=== PATIENT | male | born 1925 | race Caucasian/White ===

== ENCOUNTER 2016-04-05 19:18 | Inpatient (IN) | payer MEDICARE ==
[~2016-04-05] VITALS: Ht 172.7 cm; Wt 60.1 kg
[~2016-04-05 19:18] MED LIST: ASPI81TA82 PO; LACT20SO4 PO; LISI-357 PO; OMEP20TA PO; SIMV40TA PO
[2016-04-05 19:21] VITALS: BP 155/81; PULSE 144; RESP 38; TEMP 102.9
[2016-04-05] MEDS ORDERED: SODIUM CHLOR 0.9% 1000 ML INJ 1,000 ML IV ONE (19:22)
[2016-04-05] MEDS ORDERED: NITROGLYCERIN 0.4 MG SL 25 TABS/BTL SL STA (19:22)
[2016-04-05] MEDS ORDERED: ASPIRIN 81 MG CHEW TAB PO STA (19:22)
[2016-04-05 19:25] VITALS: O2SAT 96
[2016-04-05] MEDS ORDERED: CEFEPIME INJ 2,000 MG in SODIUM CHLORIDE 0.9% INJ 100 ML IV STA (19:26)
[2016-04-05] MEDS ORDERED: AZITHROMYCIN INJ 500 MG in SODIUM CHLOR 0.9% 250 ML INJ 250 ML IV STA (19:26)
[2016-04-05] MEDS ORDERED: SODIUM CHLORIDE 0.9% FLUSH 5 ML FLUSH IVF PRN (19:30)
[2016-04-05] MEDS ORDERED: NITROGLYCERIN-DEXTROSE INJ 250 ML IV SCH (19:30)
[2016-04-05 19:38] VITALS: RESP 20; O2SAT 100
[2016-04-05] MEDS ORDERED: HEPARIN-D5W INJ 250 ML IV SCH (19:45)
[2016-04-05] MEDS ORDERED: ACETAMINOPHEN 650 MG SUPP RECTAL ONE (19:45)
[2016-04-05] MEDS ORDERED: ASPI81CH3 CHEW (19:48)
[2016-04-05] MEDS ORDERED: SIMV80TA PO (19:48)
[2016-04-05] MEDS ORDERED: LACT10SO47 PO (19:48)
[2016-04-05 19:50] LABS: AUTOMATED NEUTROPHIL # 7.1 TH/MM3 (1.8-7.7); BASOPHIL % 0.3 % (0.0-2.0); EOSINOPHIL % 0.1 % (0.0-4.0); HEMATOCRIT 34.6 % (39.0-51.0); HEMO FLAGS DIFF FINAL; LYMPHOCYTE # 0.2 TH/MM3 (1.0-4.8); MEAN CELL VOLUME 93.8 FL (80.0-100.0); MEAN CORPUSCULAR HEMOGLOBIN 31.7 PG (27.0-34.0); MEAN CORPUSCULAR HGB CONC 33.8 % (32.0-36.0); MONO % 5.7 % (0.0-8.0); NEUT % 91.9 % (16.0-70.0); PLATELET COUNT 235 TH/MM3 (150-450); RED BLOOD COUNT 3.69 MIL/MM3 (4.50-5.90); WHITE BLOOD COUNT 7.7 TH/MM3 (4.0-11.0)
[2016-04-05] MEDS ORDERED: OMEP20TA PO (19:51)
[2016-04-05] MEDS ORDERED: LISI-519 PO (19:51)
[2016-04-05 19:52] VITALS: BP 156/70; PULSE 128; RESP 37; O2SAT 98
--- NOTE | 2016-04-05 19:53 | RADRPT ---
EXAM DATE/TIME: 04/05/2016 19:31 [place] COMPARISON: No previous studies available for comparison. INDICATIONS : Chest pain, STEMI alert. MEDICAL HISTORY : Chronic obstructive pulmonary disease. SURGICAL HISTORY : None. ENCOUNTER: Initial ACUITY: 1 day PAIN SCORE: 10/10 LOCATION: Bilateral chest FINDINGS: Moderate peribronchial thickening is present in both lung bases. The heart and pulmonary vascularity are normal. Portion of the bony skeleton visualized is unremarkable. CONCLUSION: PERIBRONCHIAL THICKENING IN BOTH LUNG BASES. OLD FILMS ARE CURRENTLY UNAVAILABLE FOR COMPARISON. IF THESE BECOME AVAILABLE AND ADDENDUM CAN BE DICTATED. Khris Clemens MD FACR on April 05, 2016 at 19:48 Board Certified Radiologist. This report was verified electronically.
--- NOTE | 2016-04-05 19:53 | PD ---
HPI Chief Complaint: STEMI Alert Time Seen by Provider: 19:21 Travel History International Travel<30 days: No Contact w/Intl Traveler<30days: No Traveled to known affect area: No History of Present Illness HPI 89-year-old male with history of diabetes, high cholesterol, pericarditis in the past, presents to the ER brought in by EMS because family had called EMS due to respiratory distress at home. When they arrived, they found that he had a temperature of 103 and an EKG shows what appears to be ST elevations in multiple leads. He has no complaints on initial exam by EMS. Family on scene were Turkmen-speaking and they were not able to get much more history or medications. I was able to talk briefly to patient's daughter who told me of patient's previous medical history. STEMI alert was called. Modifying Factors: None Associated Signs & Symptoms: STEMI alert Risk Factors: Diabetes, high cholesterol PFSH Past Medical History Cardiovascular Problems: Yes High Cholesterol: Yes Diabetes: Yes GERD: Yes ?: Unknown Past Surgical History Other Surgery: Yes (LAMINECTOMY L4-L5) Social History Alcohol Use: No Tobacco Use: No Substance Use: No Allergies-Medications (Allergen,Severity, Reaction): Coded Allergies: Amoxicillin (Verified Allergy, Severe, Rash, 04/05/16) Flagyl (Verified Allergy, Severe, RASH, 04/05/16) Penicillin (Verified Allergy, Severe, RASH, 04/05/16) Reported Meds & Prescriptions Reported Meds & Active Scripts Active Lactulose 30 Ml Syrp 30 Ml PO TID PRN Reported Omeprazole 20 mg (Omeprazole) 20 Mg Tab 20 Mg PO DAILY Aspir-81 (Aspirin) 81 Mg Tab 81 Mg PO DAILY Simvastatin 40 Mg Tab 60 Mg PO HS Lisinopril 5 mg (Lisinopril) 5 Mg Tab 5 Mg PO HS Review of Systems Except as stated in HPI: all other systems reviewed are Neg Physical Exam Narrative GENERAL: Well-nourished, well-developed elderly white male patient in mild distress. Awake, alert, not oriented. SKIN: Warm and dry. HEAD: Normocephalic. EYES: No scleral icterus. No injection or drainage. NECK: Supple, trachea midline. CARDIOVASCULAR: Regular rate and rhythm without murmurs, gallops, or rubs. RESPIRATORY: Breath sounds equal bilaterally. No accessory muscle use. GASTROINTESTINAL: Abdomen soft, non-tender, nondistended. MUSCULOSKELETAL: No cyanosis, or edema. BACK: Nontender without obvious deformity. No CVA tenderness. Data Data Last Documented VS Vital Signs Date Time Temp Pulse Resp B/P Pulse Ox O2 Delivery O2 Flow Rate FiO2 04/05/16 19:38 20 100 Non-Rebreather 12 04/05/16 19:25 100 04/05/16 19:21 102.9 144 155/81 Orders Troponin I (04/05/16 19:22) Ckmb (Isoenzyme) Profile (04/05/16 19:22) Complete Blood Count With Diff (04/05/16:) I-Stat Profile (04/05/16:) I-Stat Creatinine (04/05/16:) Calcium (04/05/16:) Magnesium (Mg) (04/05/16:) Prothrombin Time / Inr (Pt) (04/05/16:22) Act Partial Throm Time (Ptt) (04/05/16:) B-Type Natriuretic Peptide (04/05/16:22) Chest, Single Ap (04/05/16 19:22) Electrocardiogram (04/05/16 19:22) Oxygen Administration (04/05/16:) Iv Access Insert/Monitor (04/05/16:) Oximetry (04/05/16:22) Sodium Chlor 0.9% 1000 Ml Inj (Ns 1000 M (04/05/16 19:22) Sodium Chloride 0.9% Flush (Ns Flush) (04/05/16 19:30) Aspirin Chew (Aspirin Chew) (04/05/16 19:22) Nitroglycerin Sl (Nitrostat Sl) (04/05/16 19:22) Nitroglycerin-Dextrose Inj (Nitroglyceri (04/05/16 19:30) Lactic Acid Sepsis Protocol (04/05/16 19:22) Urinalysis - C+S If Indicated (04/05/16 19:22) Blood Culture (04/05/16 19:22) Cefepime Inj (Maxipime Inj) (04/05/16 19:26) Azithromycin Inj (Zithromax Inj) (04/05/16 19:26) Acetaminophen Supp (Tylenol Supp) (04/05/16 19:45) Heparin Infusion TUCKER.Q1H (04/05/16 19:40) Heparin Inj (Heparin Inj) (04/06/16 01:45) Heparin Inj (Heparin Inj) (04/06/16 01:45) Heparin-D5w Inj (Heparin-D5w Inj) (04/05/16 19:45) Act Partial Throm Time (Ptt) (04/05/16 19:40) Cbc No Diff, Includes Plts (04/05/16 19:40) Cbc No Diff, Includes Plts (04/08/16 06:00) Act Partial Throm Time (Ptt) (04/06/16 02:40) Occult Blood (Hemoccult) Stool (04/05/16 19:40) Admit Order (Ed Use Only) (04/05/16 19:40) MDM Medical Decision Making Medical Screen Exam Complete: Yes Emergency Medical Condition: Yes Medical Record Reviewed: Yes Interpretation(s) EKG shows ST elevations in inferior leads and anterolateral leads. I do not see any obvious reciprocal changes. Differential Diagnosis STEMI versus pericarditis versus pneumonia versus endocarditis versus sepsis versus electrolyte abnormalities Narrative Course STEMI protocol was initiated, and sepsis protocol was initiated as well due to the elevated temperature and concern of underlying sepsis. IV antibiotics were initiated after blood cultures were drawn. Aspirin and [place] and was given in the ER. Case was discussed with Dr. Ferrari and the EKG was text into Dr. Ferrari who took a look and called back stating that he would like me to continue with the STEMI alert protocol. At this point, patient is being admitted to Dr. Ferrari service, lab for catheterization. I have notified patient's daughter, who is a hospitalist, regarding case as well. She states understanding. Aggregate critical care time was 25 minutes. Time to perform other separately billable procedures was not included in the critical care time. My time did not include minutes spent treating any other patients simultaneously or on activities that did not directly contribute to the patient's treatment. The services I provided to this patient were to treat and/or prevent clinically significant deterioration that could result in: Cardiopulmonary arrest, septic shock, dysrhythmias, I provided critical care services requiring my management, as noted below: Chart data review, documentation time, medication orders and management, vital sign assessments/reviewing monitor data, ordering and reviewing lab tests, ordering and interpreting/reviewing x-rays and diagnostic studies, care of the patient and discussion of the patient with the admitting physicians. Diagnosis Primary Impression: STEMI INVOLVING OTH SITES Additional Impression: SEPSIS, UNSPECIFIED ORGANISM Admitting Information Admitting Physician Requests: Admit Fredi Rincon MD Apr 05, 2016 19:53
[2016-04-05 20:04] LABS: APTT (PATIENT) 29.7 SEC (24.3-30.1); INTERNATIONAL NORMALIZED RATIO 1.2 RATIO; PROTHROMBIN TIME - PATIENT 13.1 SEC (9.8-11.6)
[2016-04-05 20:24] LABS: BACTERIA, URINE OCC /hpf; BLOOD, URINE SMALL (NEG); COMMENT (UR) CATH-CULT NOT IND; CULTURE IF INDICATED CATH CULTURE NOT IND; GLUCOSE,URINE 1000 mg/dL (NEG); KETONE, URINE 10 mg/dL (NEG); MUCUS URINE FEW /lpf (OCC); NITRITE,URINE NEG (NEG); PH, URINE 5.5 (5.0-8.5); URINE COLOR YELLOW (YELLW/STRAW)
[2016-04-05 20:35] LABS: MAGNESIUM 2.1 MG/DL (1.5-2.5)
[2016-04-05] MEDS ORDERED: RESP: ALBUTEROL 2.5 MG/3 ML NEB (PRN) ONE (21:45)
[2016-04-05] MEDS ORDERED: TIROFIBAN INFUSION INJ 250 ML IV SCH (21:56)
[2016-04-05] MEDS ORDERED: SODIUM CHLOR 0.9% 250 ML INJ 250 ML IV PRN (22:00)
[2016-04-05] MEDS ORDERED: TEMAZEPAM 15 MG CAP PO PRN (22:00)
[2016-04-05] MEDS ORDERED: ONDANSETRON HCL 4 MG/2 ML VIAL IV PRN (22:00)
[2016-04-05] MEDS ORDERED: LORazepam 2 MG/ML VIAL IV PRN (22:00)
[2016-04-05] MEDS ORDERED: LIDOCAINE HCL 1% 50 ML VIAL INFIL PRN (22:00)
[2016-04-05] MEDS ORDERED: ATROPINE SULFATE 1 MG/ML VIAL IV PRN (22:00)
[2016-04-05] MEDS ORDERED: MISC INFORMATION XX ONE (22:00)
[2016-04-05] MEDS ORDERED: MORPHINE SULFATE 4 MG/ML INJ IV PUSH PRN (22:00)
[2016-04-05] MEDS ORDERED: ACETAMINOPHEN 325 MG TAB PO PRN (22:00)
[2016-04-05 22:02] LABS: LACTIC ACID GHOST NOT REPORTABLE
[2016-04-05] MEDS ORDERED: INSULIN HUMAN REGULAR 1,000 UNITS/10 ML VIAL SQ SCH ×3 (22:15)
[2016-04-05] MEDS ORDERED: CHLORHEXIDINE GLUCONATE 2 % 1 PACK (2 CLOTHS)(extra cloths) TOP PRN (23:15)
[2016-04-05] MEDS ORDERED: GELATIN 12 MM/7 MM FOAM ONE (23:18)
[2016-04-06] VITALS (20 sets, daily range): BP systolic 80–106; BP diastolic 42–57; PULSE 93–118; RESP 17–24; TEMP 97.3–99.4; O2SAT 94–100
[2016-04-06] MEDS ORDERED: HEPARIN SODIUM - IV 10,000 UNITS/10 ML VIAL IV PRN ×2 (01:45)
[2016-04-06] MEDS ORDERED: DOPamine 800 MG/D5W PREMIX 500 ML IV SCH (01:45)
[2016-04-06] MEDS: SODIUM CHLOR 0.9% 1000 ML INJ 1,000 ML IV SCH ×2 (02:07→08:08)
[2016-04-06] MEDS: NOREPINEPHRINE 4 MG/D5W 250 ML IV SCH ×4 (03:05→20:33)
[2016-04-06 03:49] LABS: HEMATOCRIT 28.8 % (39.0-51.0); MEAN CELL VOLUME 96.6 FL (80.0-100.0); MEAN CORPUSCULAR HEMOGLOBIN 31.1 PG (27.0-34.0); MEAN CORPUSCULAR HGB CONC 32.2 % (32.0-36.0); PLATELET COUNT 244 TH/MM3 (150-450); RED BLOOD COUNT 2.99 MIL/MM3 (4.50-5.90); RED CELL DISTRIBUTION WIDTH 14.3 % (11.6-17.2); WHITE BLOOD COUNT 14.6 TH/MM3 (4.0-11.0)
[2016-04-06 03:55] LABS: HEMO FLAGS AUTO DIFF
[2016-04-06] MEDS: CHLORHEXIDINE GLUCONATE 2 % 1 PACK (2 CLOTHS)(taper/protocol) TOP SCH (04:00)
[2016-04-06] MEDS ORDERED: INSULIN ASPART SUPPLEMENTAL SCALE SQ SCH (04:00)
[2016-04-06 04:01] LABS: APTT (PATIENT) 38.3 SEC (24.3-30.1)
[2016-04-06 04:04] LABS: BICARBONATE 26.8 MEQ/L (21.0-32.0); HDL CHOLESTEROL 44.2 MG/DL (40.0-60.0); POTASSIUM 4.7 MEQ/L (3.5-5.1)
[2016-04-06] MEDS ORDERED: GLUCAGON 1 MG/ML VIAL OTHER PRN (04:15)
[2016-04-06] MEDS ORDERED: DEXTROSE 50% IN WATER 50 ML VIAL(D50) IV PUSH PRN ×2 (04:15→08:45)
[2016-04-06 04:22] LABS: BANDS 25 % (0-6); NEUTROPHIL # MANUAL DIFF 13.9 TH/MM3 (1.8-7.7); POLYS (SEG NEUTROPHILS) 70 % (16-70); WBC DIFF SAMPLE 100
[2016-04-06 04:23] LABS: OVALOCYTES 1+ (NORMAL); PLATELET ESTIMATE SMEAR NORMAL (NORMAL); PLATELET MORPHOLOGY NORMAL (NORMAL); SCAN/DIFF FINAL DIFF MANUAL
[2016-04-06 04:26] LABS: CKMB 52.5 NG/ML (0.5-3.6)
[2016-04-06] MEDS ORDERED: LEVOFLOXACIN 500 MG PREMIX INJ 100 ML IV SCH (05:00)
--- NOTE | 2016-04-06 05:03 | PD.CONS ---
HPI Service Critical Care Medicine Consult Requested By Dr. Ferrari Reason for Consult Pneumonia, SOB Primary Care Physician Unknown History of Present Illness 89 y/o fragile, elderly man developed worsening SOB. In ED EKG showed possible STEMI. Alert called and PCI LAD performed. He was febrile to 103 at scene and has leukocytosis on arrival. CXR with khadijah lower lobe infiltrates. Remains hypoxemic requiring NRBM to maintain saturation > 90%. Antibiotic load in ED. Many allergies. Diabetes poorly controlled. Review of Systems ROS Unobtainable. Past Family Social History Allergies: Coded Allergies: Amoxicillin (Verified Allergy, Severe, Rash, 04/05/16) Flagyl (Verified Allergy, Severe, RASH, 04/05/16) Penicillin (Verified Allergy, Severe, RASH, 04/05/16) Past Medical History Past Medical History Cardiovascular Problems: Yes High Cholesterol: Yes Diabetes: Yes GERD: Yes ?: Unknown Past Surgical History Other Surgery: Yes (LAMINECTOMY L4-L5) Social History Alcohol Use: No Tobacco Use: No Substance Use: No Allergies-Medications Allergies-Medications (Allergen,Severity, Reaction): Coded Allergies: Amoxicillin (Verified Allergy, Severe, Rash, 04/05/16) Flagyl (Verified Allergy, Severe, RASH, 04/05/16) Penicillin (Verified Allergy, Severe, RASH, 04/05/16) Reported Meds & Prescriptions Reported Meds & Active Scripts Active Lactulose 30 Ml Syrp 30 Ml PO TID PRN Reported Omeprazole 20 mg (Omeprazole) 20 Mg Tab 20 Mg PO DAILY Aspir-81 (Aspirin) 81 Mg Tab 81 Mg PO DAILY Simvastatin 40 Mg Tab 60 Mg PO HS Lisinopril 5 mg (Lisinopril) 5 Mg Tab 5 Mg PO HS Physical Exam Vital Signs Vital Signs Date Time Temp Pulse Resp B/P Pulse Ox O2 Delivery O2 Flow Rate FiO2 04/06/16 04:00 101 04/06/16 03:41 98.3 102 17 85/48 100 04/06/16 02:41 97.9 106 19 106/57 100 04/06/16 02:00 108 04/06/16 01:41 97.9 109 18 89/50 100 04/06/16 00:41 99.1 112 18 86/47 100 04/06/16 00:11 99.4 115 22 93/52 100 04/06/16 00:00 99.4 115 22 93/52 100 04/06/16 00:00 114 04/05/16 19:52 128 37 156/70 98 Non-Rebreather 12 04/05/16 19:38 20 100 Non-Rebreather 12 04/05/16 19:25 96 Non-Rebreather 15.00 100 04/05/16 19:25 96 15.00 100 04/05/16 19:21 102.9 144 38 155/81 04/05/16 19:20 98 Non-Rebreather 12 Physical Exam GEN: Frail, elderly man Head: Atraumatic, normal. Neck: Chronic stiffness. Airway widely patent. Lungs: Tachypnea, few crackles. Acceptable air movement. Chest: Markedly increased AP diameter. Heart: NL S1S2, no m,r. Neck veins flat when supine. Abdomen: Soft, no guarding, nontender. BS active. Extremities: Chronically edematous lower legs with anasarca. Well perfused. Neuro: Exhausted. Opens eyes to voice. Moves 4 limbs spontaneously. Protects airway, handles oral secretions. Laboratory Laboratory Tests Test 04/05/16 04/05/16 04/05/16 04/06/16 19:15 19:30 19:50 00:00 White Blood Count 7.7 Red Blood Count 3.69 Hemoglobin 11.7 Bedside Hemoglobin 10.9 Hematocrit 34.6 Bedside Hematocrit 32.0 Mean Corpuscular Volume 93.8 Mean Corpuscular Hemoglobin 31.7 Mean Corpuscular Hemoglobin 33.8 Concent Red Cell Distribution Width 14.0 Platelet Count 235 Mean Platelet Volume 9.6 Neutrophils (%) (Auto) 91.9 Lymphocytes (%) (Auto) 2.0 Monocytes (%) (Auto) 5.7 Eosinophils (%) (Auto) 0.1 Basophils (%) (Auto) 0.3 Neutrophils # (Auto) 7.1 Lymphocytes # (Auto) 0.2 Monocytes # (Auto) 0.4 Eosinophils # (Auto) 0.0 Basophils # (Auto) 0.0 CBC Comment DIFF FINAL Differential Comment Prothrombin Time 13.1 Prothromb Time International 1.2 Ratio Activated Partial 29.7 Thromboplast Time Bedside Sodium 135 Bedside Potassium 4.0 Bedside Chloride 94 Bedside Blood Urea Nitrogen 29 Bedside Creatinine 1.0 Bedside Glucose 283 Calcium Level 8.3 Magnesium Level 2.1 Total Creatine Kinase 88 Troponin I 0.16 B-Type Natriuretic Peptide 211 Lactic Acid Level 2.7 Urine Color YELLOW Urine Turbidity CLEAR Urine pH 5.5 Urine Specific [place] 1.016 Urine Protein 30 Urine Glucose (UA) 1000 Urine Ketones 10 Urine Occult Blood SMALL Urine Nitrite NEG Urine Bilirubin NEG Urine Urobilinogen LESS THAN 2.0 Urine Leukocyte Esterase NEG Urine RBC 2 Urine WBC 1 Urine Bacteria OCC Urine Mucus FEW Microscopic Urinalysis Comment CATH-CULT NOT IND Nasal Screen MRSA (PCR) NEGATIVE Test 04/06/16 03:32 White Blood Count 14.6 Red Blood Count 2.99 Hemoglobin 9.3 Hematocrit 28.8 Mean Corpuscular Volume 96.6 Mean Corpuscular Hemoglobin 31.1 Mean Corpuscular Hemoglobin 32.2 Concent Red Cell Distribution Width 14.3 Platelet Count 244 Mean Platelet Volume 9.3 Neutrophils (%) (Auto) Lymphocytes (%) (Auto) Monocytes (%) (Auto) Eosinophils (%) (Auto) Basophils (%) (Auto) Neutrophils # (Auto) Lymphocytes # (Auto) Monocytes # (Auto) Eosinophils # (Auto) Basophils # (Auto) CBC Comment AUTO DIFF Differential Total Cells 100 Counted Neutrophils % (Manual) 70 Band Neutrophils % 25 Lymphocytes % 1 Monocytes % 4 Neutrophils # (Manual) 13.9 Differential Comment FINAL DIFF MANUAL Platelet Estimate NORMAL Platelet Morphology Comment NORMAL Ovalocytes 1+ Activated Partial 38.3 Thromboplast Time Sodium Level 135 Potassium Level 4.7 Chloride Level 97 Carbon Dioxide Level 26.8 Anion Gap 11 Blood Urea Nitrogen 32 Creatinine 1.39 Estimat Glomerular Filtration 48 Rate Random Glucose 473 Lactic Acid Level 2.7 Calcium Level 7.7 Total Creatine Kinase 413 Creatine Kinase MB 52.5 Creatine Kinase MB % 12.7 Triglycerides Level 80 Cholesterol Level 119 LDL Cholesterol 59 HDL Cholesterol 44.2 Cholesterol/HDL Ratio 2.69 Date/Time Procedure Status Source Growth 04/05/16 19:30 Aerobic Blood Culture Received Blood Peripheral Pending 04/05/16 19:30 Anaerobic Blood Culture Received Blood Peripheral Pending Result Diagram: 04/06/162 04/06/16331 Assessment and Plan Problem List: (1) STEMI (ST elevation myocardial infarction) ICD Code: I21.3 Status: Acute (2) Acute on chronic respiratory failure with hypoxemia ICD Code: J96.21 Status: Acute (3) Pneumonia ICD Code: J18.9 Status: Acute (4) Diabetes mellitus type 2, uncontrolled ICD Code: E11.65 Status: Acute Assessment and Plan Plan: CV: DAPT per Cardiology Service. Remove right groin sheath when ACT corrected. RESP: Broad ABX coverage pending culture results. Bronchodilators. NEURO: Hold sedation and analgesia. RENAL: Maint IV fluid. : Valenzuela to CBD. Start schedules diuretics when off levophed. GI: NPO. HEME: Follow Hgb, wbcs. ID: Aztreonam, levaquin. Cultures. ENDO: Start levemir and SSI q6h coverage. PX: Pepcid, hold chemical DVT until approved by Cardiology. Overall impression: This fragile, elderly gentleman is critically ill with hypoxemic respiratory failure and an acute STEMI. PCI tolerated and now in ICU with marginal gas exchange. He has extensive anasarca and appears chronically debilitated. Nice result from coronary PCI but respiratory sepsis makes him high risk for continued deterioration. Critical care 44 mins Problem Qualifiers (1) Pneumonia: Gal Gordon MD Apr 06, 2016 05:03
[2016-04-06] MEDS: AZTREONAM INJ 1,000 MG in SODIUM CHLORIDE 0.9% INJ 100 ML IV SCH ×3 (05:14→20:32)
[2016-04-06] MEDS ORDERED: FAMOTIDINE 20 MG/2 ML VIAL IV PUSH SCH (06:00)
[2016-04-06] MEDS: RESP: ALBUTEROL 2.5 MG/IPRATROPIUM 0.5 MG NEB (SCH) NEB ×3 (07:33→19:25)
--- NOTE | 2016-04-06 07:52 | MB ---
cc: OCTAVIO ARAGON M.D. DATE OF CONSULTATION: 04/05/[address] RE[address]ON FOR [address]ULTATION Possible ST-elevation myocardial infarction. HISTORY OF PRESENT ILLNESS History is basically unobtainable from this Palestinian patient who speaks little Citizen Of [place]. Some history is obtained from his daughter who is a hospitalist in [place]. He is an 81-year-old Palestinian male with a history of diabetes, hyperlipidemia, pericarditis 5 years ago, who was brought in to the hospital because of increasing respiratory distress. He was febrile and initial EKG showed marked ST elevation in the anterolateral leads as well as ST elevation diffusely. He seems to state he does have chest pain at this time. PAST MEDICAL HISTORY As above. No other details currently available. MEDICATIONS Medications at home: 1. Aspirin 81 mg q. daily. 2. Simvastatin 10 mg q.h.s. 3. Lisinopril 5 mg q.h.s. (which has apparently been discontinued recently due to relatively low blood pressures). 4. He also takes insulin, unknown dose. PAST SURGICAL HISTORY Lumbar laminectomy. FAMILY HISTORY Noncontributory. SOCIAL HISTORY The patient has no history of alcohol or tobacco abuse. REVIEW OF SYSTEMS Currently unobtainable. PHYSICAL EXAMINATION VITAL SIGNS: On physical examination his blood pressure is 156/70 with a pulse of 130, respirations 40. GENERAL: In general he is a well-developed, well-nourished male in no acute distress. HEENT/NECK: Jugular venous pressure is 12 cm of water. Carotid pulses are 2+ bilaterally and without bruits. CHEST: Examination of the chest reveals clear lung aguilar anteriorly. CARDIAC: On cardiac examination he has a tachycardic regular rhythm without definite S3, S4, murmur or rub. ABDOMEN: On abdominal examination he has a soft, nontender abdomen. Bowel sounds are present. There is no definite hepatosplenomegaly. EXTREMITIES: Examination of extremities reveals no clubbing, cyanosis or edema. LABORATORY Laboratory data includes potassium 4.0, BUN 29, creatinine 1.0. Cardiac enzymes pending. WBC 7.7, hemoglobin 11.7, platelets 235. INR 1.2. IMAGING Chest x-ray shows no acute disease. EKG EKG shows sinus tachycardia, diffuse ST elevation, most marked in the anterolateral leads, consider acute injury pattern. IMPRESSION Probable acute anterior ST-elevation myocardial infarction in this 89-year-old male with a history of diabetes, pericarditis 5 years ago, hyperlipidemia. Unfortunately history is impossible to elicit from the patient who speaks very little Citizen [place]. The ST-segment changes on EKG are marked. Overall I do not believe they are due to pericarditis. I had spoken with his daughter, a hospitalist in [place]. In light of the marked EKG changes I have recommended he undergo emergency cardiac catheterization this evening to most definitively assess his coronary status. RECOMMENDATIONS Cardiac catheterization ISAC. MD ABDON Solano/BETH /8:28 PM /7:45 AM [facility]TDD
[2016-04-06] MEDS: SODIUM CHLORIDE 0.9% FLUSH 5 ML FLUSH IVF PRN (08:08)
[2016-04-06] MEDS: SODIUM CHLORIDE 0.9% FLUSH 5 ML FLUSH IVF SCH ×2 (08:08→20:32)
--- NOTE | 2016-04-06 08:31 | MA ---
cc: OCTAVIO ARAGON M.D. DATE: 04/05/2016 PROCEDURE Emergency left heart catheterization, selective coronary angiography, left ventriculography, very difficult angioplasty of the proximal and mid LAD. PROCEDURE NOTE The patient was brought to the cardiac catheterization laboratory under emergency conditions in the midst of an acute ST-elevation myocardial infarction. The right groin was prepped and draped as per policy and anesthetized with 1% lidocaine. Arterial access was obtained via the right femoral artery and a 6-Azeri sheath placed. Coronary arteriography was performed using 6-Azeri Noé left 4.0 and right progressive catheters. Left ventriculography was done using a standard 6-Azeri pigtail. Percutaneous coronary intervention was done as described below. HEMODYNAMIC DATA Left ventricle 103 with an end-diastolic pressure of 20. Aorta 97/52 with a mean of 72. There was no significant transvalvular aortic gradient on pullback of the pigtail catheter. CORONARY ARTERIOGRAPHY The left main has distal 30% tubular stenosis. The left anterior descending is heavily calcified proximally where there is a 85% somewhat eccentric lesion right after the takeoff of the first septal wood car builder which has mild ostial disease. In the mid-LAD there is 95% stenosis. The distal LAD has slight haziness near the apex. The LAD gives rise to a small caliber first diagonal which has severe ostial disease. The caliber of this diagonal is probably 1 mm. In the midportion of this diagonal there is diffuse irregular up to 50% stenosis. There is a small second diagonal arising from the mid LAD which has 85% ostial stenosis. The left circumflex is a medium-sized vessel giving rise to a small caliber first obtuse marginal and medium-sized second obtuse marginal. There is 25% stenosis of the left circumflex near the ostium. The mid left circumflex has diffuse up to 30% stenosis. The first obtuse marginal has diffuse up to 60% stenosis. The second obtuse marginal overall has mild diffuse disease from the ostium in the proximal portion. The right coronary artery is totally occluded proximally. There are good septal collaterals supplying the right coronary. LEFT VENTRICULOGRAPHY Contrast injection of the left ventricle reveals a fairly large area of apical, mid to distal inferior, mid to distal anterior akinesis. Ejection fraction is difficult to estimate, probably 20-25%. PERCUTANEOUS CORONARY INTERVENTION DESCRIPTION Aggrastat was given as per protocol. Adequate heparin was given during the procedure to achieve an ACT greater than 250 seconds. Using a 6-Azeri XB 3.5 guiding catheter the ostium of the left main was re-engaged. Using a 0.014 [place] guidewire the fairly diffuse proximal to mid LAD disease was crossed without difficulty and the tip of the wire positioned distally. Multiple pre- dilation inflations were done using a 2.25-mm [place] balloon catheter from the proximal to mid LAD. This did result in reduction of the mid stenosis to roughly 0% residual. However, the proximal stenosis, where there is heavy calcification, continues to have residual 60% stenosis, so the balloon was exchanged for a 2.25 mm noncompliant [place] Quantum balloon catheter which was inflated to as high as 20 atmospheres in the proximal LAD. This resulted in minimal improvement in the lesion. It was exchanged for a 2.5 mm noncompliant Quantum [place] balloon catheter which was also inflated to 20 atmospheres resulting in minimal improvement in the residual lesion. It was finally exchanged for a 2.75 mm noncompliant apex Quantum balloon catheter which was also inflated to 20 atmospheres. It was felt the lesion would not yield any further with balloon inflations. There is approximately 50% residual stenosis in this area. In the future, consideration could be made towards Rotablator therapy if this region restenoses. At this point we attempted to advance a 2.25 x 14-mm Resolute stent to the mid lesion. It would not traverse the proximal LAD. We tried to use kiki wire technique using a balanced middle weight guidewire, but the stent still would not traverse the proximal LAD. The case was ended. Final angiography shows reduction of the initial mid stenosis to roughly 0% residual which is slightly hazy. The proximal LAD has approximately 50% residual stenosis. CONCLUSION 1. Moderate to severe three-vessel coronary artery disease. 2. Right dominant system. 3. Severely reduced left ventricular systolic function with estimated ejection fraction of 20-25% due to akinesis of the apex, mid to distal inferior wall, and mid to distal anterior wall. 4. Status post difficult angioplasty of the proximal and mid LAD, unsuccessful stenting of the mid-LAD. DISCUSSION In the future, should the patient developed severe restenosis of the proximal LAD (where there is 50% residual stenosis after angioplasty), consideration could be made towards Rotablator therapy of this region, which is heavily calcified. MD ABDON Solano/MARGRET /9:43 PM /8:15 AM [facility]
[2016-04-06] MEDS ORDERED: MISC INFORMATION XX ONE (08:45)
[2016-04-06] MEDS: ASPIRIN 325 MG TAB PO SCH (09:00)
--- NOTE | 2016-04-06 09:11 | PD.CARD.PN ---
Subjective Subjective Remarks Somnolent. In no acute distress. Objective Medications Item Value Date Time Atorvastatin 40 mg 04/06/16 2100 Calcium HS/PO (Lipitor) Aspirin 325 mg 04/06/16 0900 (Aspirin) DAILY/PO Norepinephrine 250 ml @ 0 mls/hr 04/06/16 0145 Bitartrate TITRATE/IV 04/06/16 0633 Tirofiban/Sodium 250 ml @ 12.6 mls/hr 04/05/16 2156 Chloride [id number] Vital Signs / I&O Vital Signs Date Time Temp Pulse Resp B/P Pulse Ox O2 Delivery O2 Flow Rate FiO2 04/06/16 07:34 98 Nasal Cannula 1.00 04/06/16 06:00 95 04/06/16 04:41 98.9 102 20 96/51 100 04/06/16 04:00 101 04/06/16 03:41 98.3 102 17 85/48 100 04/06/16 02:41 97.9 106 19 106/57 100 04/06/16 02:00 108 04/06/16 01:41 97.9 109 18 89/50 100 04/06/16 00:41 99.1 112 18 86/47 100 04/06/16 00:11 99.4 115 22 93/52 100 04/06/16 00:00 99.4 115 22 93/52 100 04/06/16 00:00 114 04/05/16 19:52 128 37 156/70 98 Non-Rebreather 12 04/05/16 19:38 20 100 Non-Rebreather 12 04/05/16 19:25 96 Non-Rebreather 15.00 100 04/05/16 19:25 96 15.00 100 04/05/16 19:21 102.9 144 38 155/81 04/05/16 19:20 98 Non-Rebreather 12 I/O 04/05/16 04/05/16 04/05/16 04/06/16 04/06/16 04/06/16 07:00 15:00 23:00 07:00 15:00 23:00 Intake Total 1344 ml Output Total 500 ml Balance 844 ml Intake IV Total 1344 ml Output Urine Total 500 ml Physical Exam GENERAL: Well developed, very thin. No acute distress. HEENT: Jugular venous pressure is normal. CHEST: Lungs clear to auscultation anteriorly. CARDIAC: Regular rate and rhythm without S3, S4. I/ AKHIL RUSB. ABDOMEN: Soft, nontender, no hepatosplenomegaly. Bowel sounds present. EXTREMITIES: No clubbing, cyanosis, or edema. Right groin nontender, no hematoma. Laboratory Laboratory Tests Test 04/05/16 04/05/16 04/05/16 04/06/16 19:15 19:30 19:50 00:00 White Blood Count 7.7 TH/MM3 Red Blood Count 3.69 MIL/MM3 Hemoglobin 11.7 GM/DL Bedside Hemoglobin 10.9 G/DL Hematocrit 34.6 % Bedside Hematocrit 32.0 % Mean Corpuscular Volume 93.8 FL Mean Corpuscular Hemoglobin 31.7 PG Mean Corpuscular Hemoglobin 33.8 % Concent Red Cell Distribution Width 14.0 % Platelet Count 235 TH/MM3 Mean Platelet Volume 9.6 FL Neutrophils (%) (Auto) 91.9 % Lymphocytes (%) (Auto) 2.0 % Monocytes (%) (Auto) 5.7 % Eosinophils (%) (Auto) 0.1 % Basophils (%) (Auto) 0.3 % Neutrophils # (Auto) 7.1 TH/MM3 Lymphocytes # (Auto) 0.2 TH/MM3 Monocytes # (Auto) 0.4 TH/MM3 Eosinophils # (Auto) 0.0 TH/MM3 Basophils # (Auto) 0.0 TH/MM3 CBC Comment DIFF FINAL Differential Comment Prothrombin Time 13.1 SEC Prothromb Time International 1.2 RATIO Ratio Activated Partial 29.7 SEC Thromboplast Time Bedside Sodium 135 MMOL/L Bedside Potassium 4.0 MMOL/L Bedside Chloride 94 MMOL/L Bedside Blood Urea Nitrogen 29 MG/DL Bedside Creatinine 1.0 MG/DL Bedside Glucose 283 MG/DL Calcium Level 8.3 MG/DL Magnesium Level 2.1 MG/DL Total Creatine Kinase 88 U/L Troponin I 0.16 NG/ML B-Type Natriuretic Peptide 211 PG/ML Lactic Acid Level 2.7 mmol/L Urine Color YELLOW Urine Turbidity CLEAR Urine pH 5.5 Urine Specific Randolph 1.016 Urine Protein 30 mg/dL Urine Glucose (UA) 1000 mg/dL Urine Ketones 10 mg/dL Urine Occult Blood SMALL Urine Nitrite NEG Urine Bilirubin NEG Urine Urobilinogen LESS THAN 2.0 MG/DL Urine Leukocyte Esterase NEG Urine RBC 2 /hpf Urine WBC 1 /hpf Urine Bacteria OCC /hpf Urine Mucus FEW /lpf Microscopic Urinalysis Comment CATH-CULT NOT IND Nasal Screen MRSA (PCR) NEGATIVE Test 04/06/16 03:32 White Blood Count 14.6 TH/MM3 Red Blood Count 2.99 MIL/MM3 Hemoglobin 9.3 GM/DL Hematocrit 28.8 % Mean Corpuscular Volume 96.6 FL Mean Corpuscular Hemoglobin 31.1 PG Mean Corpuscular Hemoglobin 32.2 % Concent Red Cell Distribution Width 14.3 % Platelet Count 244 TH/MM3 Mean Platelet Volume 9.3 FL Neutrophils (%) (Auto) % Lymphocytes (%) (Auto) % Monocytes (%) (Auto) % Eosinophils (%) (Auto) % Basophils (%) (Auto) % Neutrophils # (Auto) TH/MM3 Lymphocytes # (Auto) TH/MM3 Monocytes # (Auto) TH/MM3 Eosinophils # (Auto) TH/MM3 Basophils # (Auto) TH/MM3 CBC Comment AUTO DIFF Differential Total Cells 100 Counted Neutrophils % (Manual) 70 % Band Neutrophils % 25 % Lymphocytes % 1 % Monocytes % 4 % Neutrophils # (Manual) 13.9 TH/MM3 Differential Comment FINAL DIFF MANUAL Platelet Estimate NORMAL Platelet Morphology Comment NORMAL Ovalocytes 1+ Activated Partial 38.3 SEC Thromboplast Time Sodium Level 135 MEQ/L Potassium Level 4.7 MEQ/L Chloride Level 97 MEQ/L Carbon Dioxide Level 26.8 MEQ/L Anion Gap 11 MEQ/L Blood Urea Nitrogen 32 MG/DL Creatinine 1.39 MG/DL Estimat Glomerular Filtration 48 ML/MIN Rate Random Glucose 473 MG/DL Lactic Acid Level 2.7 mmol/L Calcium Level 7.7 MG/DL Total Creatine Kinase 413 U/L Creatine Kinase MB 52.5 NG/ML Creatine Kinase MB % 12.7 % Triglycerides Level 80 MG/DL Cholesterol Level 119 MG/DL LDL Cholesterol 59 MG/DL HDL Cholesterol 44.2 MG/DL Cholesterol/HDL Ratio 2.69 RATIO Assessment and Plan Problem List: (1) STEMI (ST elevation myocardial infarction) Assessment and Plan: Status post anterior STEMI, PTCA of prox and mid LAD, unsuccessful stenting. Stable overnight. Remains critically ill. Continues on Levophed pressor support. EF 20-25% by cath. Echo pending. BP's too low for beta ry, NUBIA-I. Cardiac status discussed at length with patient's family. REC continue Aggrastat drip another ~8 hours continue aspirin wean pressors as possible Code Status full code Discussed Condition With patient's family Problem Qualifiers (1) STEMI (ST elevation myocardial infarction): Qualified Code: I21.02 - ST elevation myocardial infarction involving left anterior descending (LAD) coronary artery Naun Ferrari MD Apr 06, 2016 09:11
[2016-04-06] MEDS ORDERED: INSULIN REGULAR (IV INFUSION) 100 UNITS in SODIUM CHLORIDE 0.9% INJ 99 ML IV SCH (10:00)
--- NOTE | 2016-04-06 13:07 | EC ---
Study Study Date:04/06/2016 STUDY CONCLUSIONS SUMMARY - Left ventricle: The cavity size was normal. Wall thickness was increased in a pattern of mild LVH. Systolic function was moderately reduced by visual assessment. The estimated ejection fraction was in the range of 40% to 45%. Akinesis of the mid-distal anteroseptal, anterior, and apical myocardium. - Tricuspid valve: Mild-moderate regurgitation. - Pulmonary arteries: Systolic pressure was moderately to severely increased. PA peak pressure: 62mm Hg (S). If LV function is below 40, please consider prescribing an ACEI or ARB or document rationale for non-use. PROCEDURE DATA STUDY STATUS: Elective. Procedure: Transthoracic echocardiography. Image quality was good. Scanning was performed from the parasternal, apical, and subcostal acoustic windows. Study completion: The patient tolerated the procedure well. Transthoracic echocardiography. M-mode, complete 2D, complete spectral Doppler, and color Doppler. Patient status: Inpatient. CARDIAC ANATOMY LEFT VENTRICLE: The cavity size was normal. Wall thickness was increased in a pattern of mild LVH. Systolic function was moderately reduced by visual assessment. The estimated ejection fraction was in the range of 40% to 45%. Regional wall motion abnormalities: Akinesis of the mid-distal anteroseptal, anterior, and apical myocardium. AORTIC VALVE: Trileaflet; mildly thickened, mildly calcified leaflets. Doppler: Transvalvular velocity was within the normal range. There was no stenosis. No regurgitation. Mean gradient: 7mm Hg (S). Peak gradient: 14mm Hg (S). AORTA: Aortic root: The aortic root was normal in size. MITRAL VALVE: Structurally normal valve. Doppler: Transvalvular velocity was within the normal range. There was no evidence for stenosis. Trace regurgitation. Peak gradient: 4mm Hg (D). LEFT ATRIUM: The atrium was normal in size. RIGHT VENTRICLE: The cavity size was normal. Wall thickness was normal. PULMONIC VALVE: Doppler: Transvalvular velocity was within the normal range. There was no evidence for stenosis. No regurgitation. TRICUSPID VALVE: Structurally normal valve. Doppler: Transvalvular velocity was within the normal range. Mild-moderate regurgitation. PULMONARY ARTERY: Systolic pressure was moderately to severely increased. RIGHT ATRIUM: The atrium was normal in size. PERICARDIUM: There was no pericardial effusion. SYSTEMIC VEINS: Inferior vena cava: The vessel was normal in size. BASIC MEASUREMENTS ADULT Normal Left ventricle LV internal dimension, ED, chordal level, *42.6 mm 43-52 PLAX LV posterior wall thickness, ED 7.52 mm IVS/LVPW ratio, ED 1.29 <1.3 Ventricular septum Septal thickness, ED 9.68 mm Left atrium Anterior-posterior dimension 40 mm Right ventricle RV internal dimension, ED, PLAX 27.8 mm 19-38 DOPPLER MEASUREMENTS ADULT Normal Main pulmonary artery Pressure, S *62 mm Hg =30 Aortic valve Peak velocity, S 187 cm/s Mean velocity, S 117 cm/s VTI, S 45.8 cm Mean gradient, S 7 mm Hg Peak gradient, S 14 mm Hg Mitral valve Peak E-wave velocity 94.3 cm/s Peak A-wave velocity 105 cm/s Peak gradient, D 4 mm Hg Peak E/A ratio 0.9 Tricuspid valve Regurgitant peak velocity 314 cm/s Peak RV-RA gradient, S 39 mm Hg Maximal regurgitant velocity 314 cm/s Systemic veins Estimated CVP 10 mm Hg Right ventricle RV pressure, S *62 mm Hg <30 LEGEND: Mean values are shown as u=mean value. Asterisk (*) smith values outside specified normal range. Prepared and signed by Jarrod Gunderson [id number]
--- NOTE | 2016-04-06 15:02 | PD.PROCEDR ---
Central Line Procedure REASON FOR PROCEDURE Central venous access PROCEDURE PERFORMED Central line placement: CONSENT Informed consent for procedure was obtained . The risks and benefits of the procedure were discussed to include but limited to bleeding, clot formation, infection, and even . ANESTHESIA Local injection of 1% Lidocaine DESCRIPTION OF THE PROCEDURE The patient was placed in supine, mild Trendelenburg position. The area was exposed and cleansed with ChloraPrep, times two. Large sterile drape was used to cover the patient, with the site exposed, under sterile conditions including cap, face mask, sterile gown, and sterile gloves. On single attempt, the introducer needle was inserted with negative pressure in syringe and venous flash was obtained. The guide wire was then advanced without any restriction and the needle was removed. The dilator was used without any complications. Using Seldinger technique the catheter was advanced over the guide wire to a depth of 20 centimeters. The guide wire was removed. All ports were aspirated with dark venous blood return and flushed easily with sterile saline. All ports were capped. Antibiotic disc was placed around central line at puncture site. The central line was secured to the skin with two interrupted 2.0 silk sutures. The area was bandaged with sterile see-through central line bandage. RADIOLOGICAL DATA Ultrasound guidance was used to locate right IJ vein. CXR ordered to verify line placement COMPLICATIONS: No apparent complications ESTIMATED BLOOD LOSS: Less than 1 cc. Raymundo Bryson MD Apr 06, 2016 15:02
--- NOTE | 2016-04-06 15:15 | PD.CONS ---
Consult Service Palliative Care . Consult Requested By Dr. Knowles . Primary Care Physician Unknown . Reason for Consultation a. To assist with evaluation and management of symptoms including: chest pain, dysphagia. b. To assist medical decision maker(s) with: better understanding of current medical conditions; weighing benefits/burdens of medical treatment options; making medical treatment decisions. . (JARRELL SIFUENTES) HPI History of Present Illness Mr. Hartley is an 89 year old Yoruba male with past medical history of diabetes , high cholesterol, pericarditis (5 years ago) and GERD. Patient presented to [facility] on 04/05/16 from home via EMS with respiratory distress and chest pain. He was found to have temperature of 103. EKG revealed ST elevations in multiple leads. STEMI alert was called. Troponin was elevated at 0.16, total creatine kinase 88. Chest x-ray revealed bilateral lower lobe infiltrate. Patient was hypoxemic requiring non-rebreather mask to maintain oxygen saturation greater than 90%. Patient was started on IV antibiotics in ER. Patient was admitted to ICU with ST elevation NE and respiratory failure. Cardiology, Dr. Ferrari was consulted evaluation of STEMI. Patient underwent emergent cardiac catheterization which revealed moderate to severe 3 vessel coronary artery disease, right dominant system, severely reduced left ventricular systolic function with estimated ejection fraction 20 25% with difficult angioplasty of proximal and mid LAD, unsuccessful stenting of mid-LAD due to akinesis of the apex, mid to distal inferior wall. Repeat echocardiogram on 04/06/16 revealed EF 40-45%. Failed swallow evaluation on 04/06/16 recommended NPO status for high aspiration risk due to lethargy, limited dentition and mouth in fixed open position. Patient remains on pressor support (Levophed 9mcg) and insulin drip, not a candidate for beta-ry due to hypotension. Recommendations to continue IV antibiotics, aspirin and attempts to wean pressor support. May need feeding tube if he continues to fail swallow evaluations. Palliative care is consulted to further clarify treatment goals. . Function/Cognitive Trajectory Mr. Hartley had a good quality of life prior to hospitalization, was performing all ADLs independently, walking around the neighborhood, eating well. Though daughter indicates that he's had chronic aspiration and was recently treated for aspiration pneumonia with 10 days of oral Levaquin. . (JARRELL SIFUENTES) Review of Systems ROS Limitations: Hearing Impaired (hard of hearing) Constitutional: COMPLAINS OF: Fatigue, Fever, Weight loss (weight loss has fluctuated 5 pounds over the past year up-and-down per daughter's report, patient appears cachectic), Change in appetite (decreased in the few days prior to presentation) Respiratory: COMPLAINS OF: Shortness of breath Cardiovascular: COMPLAINS OF: Chest pain, Dyspnea on Exertion Gastrointestinal: COMPLAINS OF: Difficulty Swallowing (chronic aspiration her daughter's report) Hematologic/Lymphatics: COMPLAINS OF: Bruising (JARRELL SIFUENTES) Past Family Social History Coded Allergies: Amoxicillin (Verified Allergy, Severe, Rash, 04/05/16) Flagyl (Verified Allergy, Severe, RASH, 04/05/16) Penicillin (Verified Allergy, Severe, RASH, 04/05/16) Temazepam (Verified Adverse Reaction, Severe, Psychosis, 04/13/16) Past Medical History Coronary artery disease Diabetes Hyperlipidemia GERD history of pericarditis (5 years ago) . Past Surgical History Laminectomy L4 L5 bilateral cataract surgery . Reported Medications Active Lactulose 30 Ml Syrp 30 Ml PO TID PRN Reported Omeprazole 20 mg (Omeprazole) 20 Mg Tab 20 Mg PO DAILY Aspir-81 (Aspirin) 81 Mg Tab 81 Mg PO DAILY Simvastatin 40 Mg Tab 60 Mg PO HS Lisinopril 5 mg (Lisinopril) 5 Mg Tab 5 Mg PO HS . Current Medications Medications (Trade) Dose Ordered Sig/Jodie Route Start Time Stop Time Status Last Admin (Nitroglycerin-Dextrose Inj) 250 ml @ 0 mls/hr TITRATE IV 04/05/16 19:30 04/05/16 20:16 (NS Flush) 2 ml UNSCH PRN IVF 04/05/16 22:00 04/06/16 08:08 (NS Flush) 2 ml BID IVF 04/06/16 09:00 04/06/16 08:08 (Tylenol) 325 mg Q4H PRN PO 04/05/16 22:00 (Morphine Inj) 2 mg Q30M PRN IV PUSH 04/05/16 22:00 (Restoril) 15 mg HS PRN PO 04/05/16 22:00 (Aspirin) 325 mg DAILY PO 04/06/16 09:00 (Ativan Inj) 0.5 mg UNSCH PRN IV 04/05/16 22:00 04/06/16 21:59 04/06/16 02:07 Atropine Sulfate 0.5 mg 0.5 mg UNSCH PRN IV 04/05/16 22:00 (NS 250 ml Inj) 250 ml @ 500 mls/hr ONCE PRN IV 04/05/16 22:00 04/06/16 21:59 (Zofran Inj) 4 mg Q4H PRN IV 04/05/16 22:00 (Xylocaine 1% Inj (50 ml)) 10 ml UNSCH PRN INFIL 04/05/16 22:00 04/06/16 21:59 Atorvastatin Calcium 40 mg 40 mg HS PO 04/06/16 21:00 (Aggrastat Infusion Inj) 250 ml @ 12.6 mls/hr [id number] IV 04/05/16 21:56 04/06/16 16:00 Miscellaneous Information Patient in critical care unit? Ass... [id number] XX 04/05/16 23:15 04/06/16 07:42 (Chlorhexidine 2% Cloth) 3 pack DAILY@04 TOP 04/06/16 04:00 04/10/16 04:01 04/06/16 04:00 Chlorhexidine Gluconate 3 pack 3 pack UNSCH PRN TOP 04/05/16 23:15 04/10/16 23:12 Norepinephrine Bitartrate 250 ml @ 0 mls/hr TITRATE IV 04/06/16 01:45 04/06/16 11:31 Dopamine HCl/ Dextrose 500 ml @ 0 mls/hr TITRATE IV 04/06/16 01:45 Aztreonam 1000 mg/ Sodium Chloride 100 ml @ 200 mls/hr Q8HR IV 04/06/16 06:00 04/06/16 13:53 (NovoLIN R (IV INFUSION)/NS Inj) 100 ml @ 0 mls/hr TITRATE IV 04/06/16 10:00 04/06/16 10:16 (D50w (Vial) Inj) 25 ml UNSCH PRN IV PUSH 04/06/16 08:45 Famotidine 10 mg 10 mg Q12H IV PUSH 04/06/16 18:00 (Levaquin 250 Mg Premix Inj) 50 ml @ 50 mls/hr Q24H IV 04/07/16 05:00 . Family History Mother at age 29 complications during childbirth. Father at 86 unknown cause. Sister secondary to cancer. . Substance Use Tobacco: non-smoker, never smoked. Alcohol: none. Prescription med abuse:none. Illicits:none. . Psychosocial History Patient is from [place], moved [place] the [place]+ years ago. . Has 1 daughter who lives in [place], [place] - she is a hospitalist and one daughter who lives in [place]. He and his owned an apartment complex , patient has been retired for many years. . Spiritual/Cultural Factors Mormonism sonu. . (JARRELL SIFUENTES) Living Will: Never completed Health Care Surrogate: Never completed Durable Power of Skiver Sock Linings: Never completed Health Care Surrogate(s): No known written advance directives. According to [place] statutes health care proxy decision-making falls to his spouse. . Today's verbally stated goals: Patient is lethargic, very hard of hearing, difficult to determine capacity during today's visit. . Family/friends goals: Desires continued aggressive care at this time given patient's good quality of life prior to hospitalization. . Ethical and Legal Issues No known written advance directives. According to [place] statutes health care proxy decision-making falls to his spouse. . (JARRELL SIFUENTES) Physical Exam Vital Signs Date Time Temp Pulse Resp B/P Pulse Ox O2 Delivery O2 Flow Rate FiO2 04/06/16 14:00 101 04/06/16 12:00 95 04/06/16 10:00 93 04/06/16 08:00 96 04/06/16 07:34 98 Nasal Cannula 1.00 04/06/16 06:00 95 04/06/16 04:41 98.9 102 20 96/51 100 04/06/16 04:00 101 04/06/16 03:41 98.3 102 17 85/48 100 04/06/16 02:41 97.9 106 19 106/57 100 04/06/16 02:00 108 04/06/16 01:41 97.9 109 18 89/50 100 04/06/16 00:41 99.1 112 18 86/47 100 04/06/16 00:11 99.4 115 22 93/52 100 04/06/16 00:00 99.4 115 22 93/52 100 04/06/16 00:00 114 04/05/16 19:52 128 37 156/70 98 Non-Rebreather 12 04/05/16 19:38 20 100 Non-Rebreather 12 04/05/16 19:25 96 Non-Rebreather 15.00 100 04/05/16 19:25 96 15.00 100 04/05/16 19:21 102.9 144 38 155/81 04/05/16 19:20 98 Non-Rebreather 12 04/05/16 04/06/16 19:00 07:00 Intake Total 1344 ml Output Total 500 ml Balance 844 ml Intake IV Total 1344 ml Output Urine Total 500 ml Exam CONSTITUTIONAL/GENERAL: This is a cachectic, critically ill patient, in no apparent distress. TUBES/LINES/DRAINS: right IJ central line, PIV right, Valenzuela, SCDs. SKIN: No jaundice, rashes, or lesions. Ecchymoses on upper extremities. No wounds seen anteriorly. Skin temperature appropriate. Not diaphoretic. HEAD: Atraumatic. Normocephalic. EYES: Pupils equal and round and reactive. Extraocular motions intact. No scleral icterus. No injection or drainage. Fundi not examined. ENT: Hard of hearing. Nose without bleeding or purulent drainage. Throat without visible erythema, exudates, masses, or lesions. NECK: Trachea midline. CARDIOVASCULAR: Regular rate and rhythm without murmurs, gallops, or rubs. RESPIRATORY/CHEST: Symmetric, unlabored respirations. Few scattered faint crackles. GASTROINTESTINAL: Abdomen soft, non-tender, nondistended. No guarding. Bowel sounds present. GENITOURINARY: Without palpable bladder distension. Valenzuela catheter in place. MUSCULOSKELETAL: Extremities without clubbing, cyanosis, or edema. No mottling or clubbing. LYMPHATICS: No palpable cervical or supraclavicular adenopathy. NEUROLOGICAL: Awake and alert. Falls off to sleep during my visit. Follows commands. Moves all extremities. PSYCHIATRIC: No obvious anxiety/depression. no apparent hallucinations or other psychotic thought process. . (JARRELL SIFUENTES-Gi) Diagnostic Tests Laboratory Laboratory Tests Test 04/05/16 04/05/16 04/05/16 04/06/16 19:15 19:30 19:50 00:00 White Blood Count 7.7 TH/MM3 (4.0-11.0) Red Blood Count 3.69 MIL/MM3 (4.50-5.90) Hemoglobin 11.7 GM/DL (13.0-17.0) Bedside Hemoglobin 10.9 G/DL (12.0-17.0) Hematocrit 34.6 % (39.0-51.0) Bedside Hematocrit 32.0 % (38.0-51.0) Mean Corpuscular Volume 93.8 FL (80.0-100.0) Mean Corpuscular Hemoglobin 31.7 PG (27.0-34.0) Mean Corpuscular Hemoglobin 33.8 % Concent (32.0-36.0) Red Cell Distribution Width 14.0 % (11.6-17.2) Platelet Count 235 TH/MM3 (150-450) Mean Platelet Volume 9.6 FL (7.0-11.0) Neutrophils (%) (Auto) 91.9 % (16.0-70.0) Lymphocytes (%) (Auto) 2.0 % (9.0-44.0) Monocytes (%) (Auto) 5.7 % (0.0-8.0) Eosinophils (%) (Auto) 0.1 % (0.0-4.0) Basophils (%) (Auto) 0.3 % (0.0-2.0) Neutrophils # (Auto) 7.1 TH/MM3 (1.8-7.7) Lymphocytes # (Auto) 0.2 TH/MM3 (1.0-4.8) Monocytes # (Auto) 0.4 TH/MM3 (0-0.9) Eosinophils # (Auto) 0.0 TH/MM3 (0-0.4) Basophils # (Auto) 0.0 TH/MM3 (0-0.2) CBC Comment DIFF FINAL Differential Comment Prothrombin Time 13.1 SEC (9.8-11.6) Prothromb Time International 1.2 RATIO Ratio Activated Partial 29.7 SEC Thromboplast Time (24.3-30.1) Bedside Sodium 135 MMOL/L (138-146) Bedside Potassium 4.0 MMOL/L (3.5-4.9) Bedside Chloride 94 MMOL/L (98-109) Bedside Blood Urea Nitrogen 29 MG/DL (8-26) Bedside Creatinine 1.0 MG/DL (0.8-1.3) Bedside Glucose 283 MG/DL (60-95) Calcium Level 8.3 MG/DL (8.5-10.1) Magnesium Level 2.1 MG/DL (1.5-2.5) Total Creatine Kinase 88 U/L (39-308) Troponin I 0.16 NG/ML (0.02-0.05) B-Type Natriuretic Peptide 211 PG/ML (0-100) Lactic Acid Level 2.7 mmol/L (0.4-2.0) Urine Color YELLOW (YELLW/STRAW) Urine Turbidity CLEAR (CLEAR) Urine pH 5.5 (5.0-8.5) Urine Specific [place] 1.016 (1.002-1.035) Urine Protein 30 mg/dL (NEG-TRACE) Urine Glucose (UA) 1000 mg/dL (NEG) Urine Ketones 10 mg/dL (NEG) Urine Occult Blood SMALL (NEG) Urine Nitrite NEG (NEG) Urine Bilirubin NEG (NEG) Urine Urobilinogen LESS THAN 2.0 MG/DL (LESS THAN 2.0) Urine Leukocyte Esterase NEG (NEG) Urine RBC 2 /hpf (0-3) Urine WBC 1 /hpf (0-5) Urine Bacteria OCC /hpf (NONE) Urine Mucus FEW /lpf (OCC) Microscopic Urinalysis Comment CATH-CULT NOT IND Nasal Screen MRSA (PCR) NEGATIVE (NEGATIVE) Test 04/06/16 03:32 White Blood Count 14.6 TH/MM3 (4.0-11.0) Red Blood Count 2.99 MIL/MM3 (4.50-5.90) Hemoglobin 9.3 GM/DL (13.0-17.0) Hematocrit 28.8 % (39.0-51.0) Mean Corpuscular Volume 96.6 FL (80.0-100.0) Mean Corpuscular Hemoglobin 31.1 PG (27.0-34.0) Mean Corpuscular Hemoglobin 32.2 % Concent (32.0-36.0) Red Cell Distribution Width 14.3 % (11.6-17.2) Platelet Count 244 TH/MM3 (150-450) Mean Platelet Volume 9.3 FL (7.0-11.0) Neutrophils (%) (Auto) % (16.0-70.0) Lymphocytes (%) (Auto) % (9.0-44.0) Monocytes (%) (Auto) % (0.0-8.0) Eosinophils (%) (Auto) % (0.0-4.0) Basophils (%) (Auto) % (0.0-2.0) Neutrophils # (Auto) TH/MM3 (1.8-7.7) Lymphocytes # (Auto) TH/MM3 (1.0-4.8) Monocytes # (Auto) TH/MM3 (0-0.9) Eosinophils # (Auto) TH/MM3 (0-0.4) Basophils # (Auto) TH/MM3 (0-0.2) CBC Comment AUTO DIFF Differential Total Cells 100 Counted Neutrophils % (Manual) 70 % (16-70) Band Neutrophils % 25 % (0-6) Lymphocytes % 1 % (9-44) Monocytes % 4 % (0-8) Neutrophils # (Manual) 13.9 TH/MM3 (1.8-7.7) Differential Comment FINAL DIFF MANUAL Platelet Estimate NORMAL (NORMAL) Platelet Morphology Comment NORMAL (NORMAL) Ovalocytes 1+ (NORMAL) Activated Partial 38.3 SEC Thromboplast Time (24.3-30.1) Sodium Level 135 MEQ/L (136-145) Potassium Level 4.7 MEQ/L (3.5-5.1) Chloride Level 97 MEQ/L (98-107) Carbon Dioxide Level 26.8 MEQ/L (21.0-32.0) Anion Gap 11 MEQ/L (5-15) Blood Urea Nitrogen 32 MG/DL (7-18) Creatinine 1.39 MG/DL (0.60-1.30) Estimat Glomerular Filtration 48 ML/MIN (>89) Rate Random Glucose 473 MG/DL (74-106) Lactic Acid Level 2.7 mmol/L (0.4-2.0) Calcium Level 7.7 MG/DL (8.5-10.1) Total Creatine Kinase 413 U/L (39-308) Creatine Kinase MB 52.5 NG/ML (0.5-3.6) Creatine Kinase MB % 12.7 % (0.0-4.0) Triglycerides Level 80 MG/DL (42-150) Cholesterol Level 119 MG/DL (120-200) LDL Cholesterol 59 MG/DL (0-99) HDL Cholesterol 44.2 MG/DL (40.0-60.0) Cholesterol/HDL Ratio 2.69 RATIO (JARRELL SIFUENTES) Result Diagram: 04/06/16 0332 04/06/16 0332 Microbiology Microbiology Date/Time Procedure Status Source Growth 04/05/16 19:30 Aerobic Blood Culture - Preliminary Resulted Blood Peripheral NO GROWTH IN 1 DAY 04/05/16 19:30 Anaerobic Blood Culture - Preliminary Resulted Blood Peripheral NO GROWTH IN 1 DAY . Imaging Last Impressions Chest X-Ray 04/05/161921 Signed Impressions: Service Date/Time: Tuesday, April 05, 2016 19:31 - CONCLUSION: PERIBRONCHIAL THICKENING IN BOTH LUNG BASES. OLD FILMS ARE CURRENTLY UNAVAILABLE FOR COMPARISON. IF THESE BECOME AVAILABLE AND ADDENDUM CAN BE DICTATED. Khris Clemens MD FACR . Procedures * 04/06/16 - right IJ central line placed. * 04/05/16 - emergent cardiac cath with angioplasty and unsuccessful stenting of 3 vessel disease. . (JARRELL SIFUENTES) Patient/Family Conference Present at Family Conference: Met with patient (who slept most of visit), , Az and daughter, Millie at bedside. . Family Conference Time (mins): 35 Family Conference Location: Bedside Issues Discussed: * Palliative care role, purpose, approach * Additional medical, psychosocial, and spiritual history * Patients general health, functional status, and cognitive changes in the months leading up to the current hospitalization * Patient/family understanding of the current medical problems * Patient/family understanding of prognosis * Patients goals of care as best understood from advance directives and/or conversations and/or values * Current medical treatment options and benefits/burdens of those options * Likely scenarios comparing ongoing aggressive care with a transition to comfort measures only * Questions answered to the best of my ability * Palliative care contact information provided (JARRELL SIFUENTES) Assessment and Plan Disease Oriented Problem List: (1) STEMI (ST elevation myocardial infarction) Comment: s/p cardiac cath with angioplasty, unsuccessful stenting of 3 vessel disease. . (2) Acute on chronic respiratory failure with hypoxemia (3) Diabetes mellitus type 2, uncontrolled (4) Pneumonia Comment: aspiration pneumonia Symptom Scale: (1) Chest pain 0-10 Scale: 0 (2) Dysphagia 0-10 Scale: Unable to quantify Comment: Failed swallow eval on 04/06/16. May need feeding tube if persists. H/ O chronic aspiration per daughter report. . Pertinent Non-Medical Issues Psychosocial: . Spiritual: Mormonism sonu. Legal: No known written advanced directives. According to [place] statutes, health care proxy decision-making falls to the patient's spouse. Ethical issues impacting care: No known concerns at this time. . Important Contacts * Az Hartley, spouse/HCP: [phone] * Millie Hartley, daughter: [phone] lives in [place], [place] . Prognosis Mr. Hartley is an 89-year-old admitted with STEMI s/p angioplasty and unsuccessful stenting of 3 vessel disease who remains in ICU on pressor support and failed swallow evaluation. He is cachectic with chronic aspiration. He is high risk for further decline. . Code Status: Full Code Plan * No known written advanced directives. According to [place] statutes, health care proxy decision-making falls to the patient's spouse. * FULL CODE per conversation with Dr. Knowles prior to my visit. * Palliative care spoke with and daughter who desire continued aggressive care for now understanding we are hoping to wean Levophed and concern for nutritional issues. May need feeding tube if continues to fail swallow eval. Will continue to follow. * SYMPTOMS: Dysphagia: failed swallow evaluation 04/06/16, NPO status recommended. Chest pain: has resolved. Denies pain today. * Palliative care number provided. * Palliative care will continue to follow throughout hospital course to assist with symptom management and further clarification of treatment goals. . (JARRELL SIFUENTES) Thank you for the opportunity to participate in the care of Mr. Hartley. (JARRELL SIFUENTES) Attestation To help prompt me to consider important information that might be impacting today's encounter and assessment, information from prior notes written by myself or my colleagues may have been "brought forward" into today's note. My signature on this note, however, is an attestation that I personally performed the exam, history, and/or decision-making noted today, and, unless otherwise indicated, the interactions with patient, family, and staff as well as the review of records all occurred today. I also attest that the listed assessment and stated plan reflect my best clinical judgment today based on the combination of historical information, prior notes, and today's exam/ interactions. When time spent is documented, it refers only to time spent today by the signer, or if indicated, combined time spent today by collaborating physician/nurse practitioner. (JARRELL SIFUENTES) Collaborating MD Comments Chart reviewed. Case discussed with palliative care MEDICAL LABORATORY MANAGER. Above MEDICAL LABORATORY MANAGER note reviewed and I concur. . (Toni Cooper MD) JARRELL SIFUENTES Apr 06, 2016 15:15 Toni Cooper MD May 10, 2016 07:34
--- NOTE | 2016-04-06 15:27 | RADRPT ---
EXAM DATE/TIME: 04/06/2016 15:00 [facility] COMPARISON: CHEST SINGLE AP, April 05, 2016, 19:31. INDICATIONS : Evaluate central line placement MEDICAL HISTORY : Chronic obstructive pulmonary disease. SURGICAL HISTORY : None. ENCOUNTER: Subsequent ACUITY: 2 days PAIN SCORE: Non-responsive. LOCATION: Bilateral chest FINDINGS: Central venous catheter is in good position entering from the right IJ approach. Minimal bibasilar p arenchymal changes are noted. Heart and pulmonary vascularity are normal. There is no pneumothorax. CONCLUSION: 1. Line in good position. 2. Bibasilar parenchymal changes. These have progressed slightly in the interval. Khris Clemens MD FACR on April 06, 2016 at 15:21 Board Certified Radiologist. This report was verified electronically.
[2016-04-06] MEDS: FAMOTIDINE 20 MG/2 ML VIAL IV PUSH SCH (18:00)
--- NOTE | 2016-04-06 19:31 | EKG ---
Date Performed: 04/05/2016 Time Performed: 20:10:41 PTAGE: 89 years EKG: SINUS TACHYCARDIA LOW QRS VOLTAGE MARKED ST ELEVATION, CONSIDER ANTERIOR INJURY ACUTE GA INTERPRETATION BASED ON A DEFAULT AGE OF 40 YEARS PREVIOUS TRACING : 04/05/2016 19.22 DOCTOR: Mahendra Dias Interpretating Date/Time 04/06/2016 19:29:14
--- NOTE | 2016-04-06 19:33 | EKG ---
Date Performed: 04/05/2016 Time Performed: 19:22:39 PTAGE: 89 years EKG: SINUS TACHYCARDIA LOW QRS VOLTAGE IN EXTREMITY LEADS MARKED ST ELEVATION, CONSIDER INFERIOR INJURY MARKED ST ELEVATION, CONSIDER ANTEROLATERAL INJURY ACUTE [place] PREVIOUS TRACING : 09/19/2010 03.29 DOCTOR: Mahendra Dias Interpretating Date/Time 04/06/2016 19:30:12
[2016-04-06] MEDS: ATORVASTATIN 40 MG TAB PO SCH (20:32)
[2016-04-06] MEDS ORDERED: INSULIN DETEMIR 100 UNITS/ML VIAL SQ SCH (21:00)
[2016-04-07] VITALS (14 sets, daily range): BP systolic 86–113; BP diastolic 50–58; PULSE 104–120; RESP 15–25; TEMP 98.1–99; O2SAT 94–100
[2016-04-07] MEDS: CHLORHEXIDINE GLUCONATE 2 % 1 PACK (2 CLOTHS)(taper/protocol) TOP SCH (01:11)
[2016-04-07] MEDS: FAMOTIDINE 20 MG/2 ML VIAL IV PUSH SCH ×2 (04:36→17:19)
[2016-04-07] MEDS: AZTREONAM INJ 1,000 MG in SODIUM CHLORIDE 0.9% INJ 100 ML IV SCH ×2 (04:36→13:07)
[2016-04-07] MEDS: LEVOFLOXACIN 250 MG PREMIX INJ 50 ML IV SCH (04:38)
[2016-04-07 05:20] LABS: HEMATOCRIT 23.6 % (39.0-51.0); MEAN CELL VOLUME 93.5 FL (80.0-100.0); MEAN CORPUSCULAR HEMOGLOBIN 31.3 PG (27.0-34.0); MEAN CORPUSCULAR HGB CONC 33.4 % (32.0-36.0); PLATELET COUNT 173 TH/MM3 (150-450); RED BLOOD COUNT 2.52 MIL/MM3 (4.50-5.90); RED CELL DISTRIBUTION WIDTH 14.5 % (11.6-17.2); WHITE BLOOD COUNT 5.9 TH/MM3 (4.0-11.0)
[2016-04-07 05:29] LABS: HEMO FLAGS AUTO DIFF
[2016-04-07 05:41] LABS: BICARBONATE 25.4 MEQ/L (21.0-32.0); POTASSIUM 4.1 MEQ/L (3.5-5.1)
[2016-04-07 05:52] LABS: CALCIUM-PROTEIN CORRECTED 8.6 MG/DL (8.5-10.1)
[2016-04-07 07:32] LABS: BANDS 20 % (0-6); NEUTROPHIL # MANUAL DIFF 5.6 TH/MM3 (1.8-7.7); PLATELET ESTIMATE SMEAR NORMAL (NORMAL); PLATELET MORPHOLOGY NORMAL (NORMAL); POLYS (SEG NEUTROPHILS) 75 % (16-70); SCAN/DIFF FINAL DIFF MANUAL; WBC DIFF SAMPLE 100
[2016-04-07 07:34] LABS: OVALOCYTES 1+ (NORMAL)
[2016-04-07] MEDS: RESP: ALBUTEROL 2.5 MG/IPRATROPIUM 0.5 MG NEB (SCH) NEB ×3 (08:00→20:28)
[2016-04-07] MEDS: SODIUM CHLORIDE 0.9% FLUSH 5 ML FLUSH IVF SCH ×2 (09:02→20:48)
[2016-04-07] MEDS: SODIUM CHLORIDE 0.9% FLUSH 5 ML FLUSH IVF PRN (09:02)
[2016-04-07] MEDS: ASPIRIN 325 MG TAB PO SCH (09:02)
[2016-04-07] MEDS ORDERED: GLUCAGON 1 MG/ML VIAL IM/SQ PRN (09:30)
--- NOTE | 2016-04-07 09:39 | HHI.CCPN ---
Subjective Remarks/Hospital Course 04/06: 89 y/o fragile, elderly man developed worsening SOB. In ED EKG showed possible STEMI. Alert called and PCI LAD performed. He was febrile to 103 at scene and has leukocytosis on arrival. CXR with khadijah lower lobe infiltrates. Remains hypoxemic requiring NRBM to maintain saturation > 90%. Antibiotic load in ED. Many allergies. Diabetes poorly controlled. 04/07: Sitting up in bed on 4 L nasal cannula. Does not appear to be any acute distress. On Levophed 1 david per minute currently. Passed swallow eval. 1 unit PRBCs ordered this morning for hemoglobin 7.9 Objective Vital Signs Date Time Temp Pulse Resp B/P Pulse Ox O2 Delivery O2 Flow Rate FiO2 04/07/16 06:00 109 04/07/16 04:00 99.0 15 104/54 98 04/06/16 19:26 Nasal Cannula 1.00 04/05/16 19:25 100 Intake and Output 04/06/16 04/06/16 04/07/16 08:00 16:00 00:00 Intake Total 1344 ml 1989 ml 1422 ml Output Total 500 ml 525 ml 600 ml Balance 844 ml 1464 ml 822 ml Result Diagram: 04/07/16 0400 04/07/16 0400 Imaging Last Impressions Chest X-Ray 04/06/16 0000 Signed Impressions: Service Date/Time: Wednesday, April 06, 2016 15:00 - CONCLUSION: 1. Line in good position. 2. Bibasilar parenchymal changes. These have progressed slightly in the interval. Khris Clemens MD FACR Objective Remarks GEN: Frail, elderly man Head: Atraumatic, normal. Neck: Chronic stiffness. Airway widely patent. Lungs: Good air entry bilaterally, bibasilar crackles Chest: Markedly increased AP diameter. Heart: NL S1S2, no m,r. Neck veins flat when supine. Abdomen: Soft, no guarding, nontender. BS active. Extremities: Chronically edematous lower legs with anasarca. Well perfused. Neuro: Awake and alert, Moves 4 limbs spontaneously. Protects airway, handles oral secretions. A/P Problem List: (1) STEMI (ST elevation myocardial infarction) ICD Code: I21.3 Status: Acute (2) Acute on chronic respiratory failure with hypoxemia ICD Code: J96.21 Status: Acute (3) Pneumonia ICD Code: J18.9 Status: Acute (4) Diabetes mellitus type 2, uncontrolled ICD Code: E11.65 Status: Acute Assessment and Plan Plan: CV: DAPT per Cardiology Service. On levophed for pressor support, IV hydration. RESP: Broad ABX coverage pending culture results. Bronchodilators. Will get CT chest to evaluate for bronchiectasis as patient's daughter concerned regarding chronic recurrent aspiration NEURO: Hold sedation and analgesia. RENAL: Maint IV fluid. Strict intake output, monitor and replete electrolytes , follow BUN/creatinine : Valenzuela to CBD. Start scheduled diuretics when off levophed. GI: Passed swallow eval, by mouth diet as tolerated. Concern regarding recurrent aspiration. HEME: Follow Hgb, wbcs. ID: Aztreonam, levaquin. Cultures. Patient's daughter requests ID consult for septic shock - ordered. ENDO: Start levemir and SSI q6h coverage. Stop Insulin gtt on 04/07 PX: Pepcid, Start lovenox 30mg daily 04/07 Overall impression: This fragile, elderly gentleman is critically ill with hypoxemic respiratory failure and an acute STEMI. PCI tolerated and now in ICU with marginal gas exchange. He has extensive anasarca and appears chronically debilitated. Nice result from coronary PCI but respiratory sepsis makes him high risk for continued deterioration. Discussed current clinical status and plan of care with patient's daughter who is a hospitalist in detail and she voiced understanding and was agreeable with plan of care. Time spent on critical care excluding procedures : 30 mins Problem Qualifiers (1) STEMI (ST elevation myocardial infarction): Qualified Code: I21.02 - ST elevation myocardial infarction involving left anterior descending (LAD) coronary artery (2) Pneumonia: David Reich MD Apr 07, 2016 09:39
[2016-04-07] MEDS: INSULIN DETEMIR 100 UNITS/ML VIAL SQ SCH ×2 (10:49→20:48)
--- NOTE | 2016-04-07 10:58 | PD.CARD.PN ---
Subjective Subjective Remarks Awake. Alert. Denies CP, abdominal pain, dyspnea, dizziness. Objective Medications aspirin, atorvastatin, Levophed drip Vital Signs / I&O Vital Signs Date Time Temp Pulse Resp B/P Pulse Ox O2 Delivery O2 Flow Rate FiO2 04/07/16 10:00 109 04/07/16 08:00 113 04/07/16 08:00 98.4 113 22 86/50 97 04/07/16 06:00 109 04/07/16 04:00 99.0 109 15 104/54 98 04/07/16 04:00 109 04/07/16 02:00 112 04/07/16 00:00 113 04/07/16 00:00 98.1 113 22 99/53 94 04/06/16 22:00 116 04/06/16 20:00 98.5 118 24 102/54 94 04/06/16 20:00 118 04/06/16 19:26 99 Nasal Cannula 1.00 04/06/16 18:00 107 04/06/16 16:00 98.1 96 20 93/53 97 04/06/16 16:00 96 04/06/16 14:00 101 04/06/16 12:00 97.7 95 19 80/42 96 04/06/16 12:00 95 I/O 04/06/16 04/06/16 04/06/16 04/07/16 04/07/16 04/07/16 07:00 15:00 23:00 07:00 15:00 23:00 Intake Total 1344 ml 1989 ml 1422 ml 855 ml Output Total 500 ml 525 ml 600 ml 550 ml Balance 844 ml 1464 ml 822 ml 305 ml Intake IV Total 1344 ml 1989 ml 1422 ml 855 ml Output Urine Total 500 ml 525 ml 600 ml 550 ml # Bowel Movements 0 Physical Exam GENERAL: Well developed, very thin. No acute distress. HEENT: Jugular venous pressure is normal. CHEST: Lungs clear to auscultation anteriorly. CARDIAC: Regular rate and rhythm without S3, S4. I/ AKHIL RUSB. ABDOMEN: Soft, nontender, no hepatosplenomegaly. Bowel sounds present. EXTREMITIES: No clubbing, cyanosis, or edema. Laboratory Laboratory Tests Test 04/07/16 04/07/16 04/07/16 04:00 06:25 09:25 White Blood Count 5.9 TH/MM3 Red Blood Count 2.52 MIL/MM3 Hemoglobin 7.9 GM/DL Hematocrit 23.6 % Mean Corpuscular Volume 93.5 FL Mean Corpuscular Hemoglobin 31.3 PG Mean Corpuscular Hemoglobin 33.4 % Concent Red Cell Distribution Width 14.5 % Platelet Count 173 TH/MM3 Mean Platelet Volume 9.2 FL Neutrophils (%) (Auto) % Lymphocytes (%) (Auto) % Monocytes (%) (Auto) % Eosinophils (%) (Auto) % Basophils (%) (Auto) % Neutrophils # (Auto) TH/MM3 Lymphocytes # (Auto) TH/MM3 Monocytes # (Auto) TH/MM3 Eosinophils # (Auto) TH/MM3 Basophils # (Auto) TH/MM3 CBC Comment AUTO DIFF Differential Total Cells 100 Counted Neutrophils % (Manual) 75 % Band Neutrophils % 20 % Lymphocytes % 1 % Monocytes % 4 % Neutrophils # (Manual) 5.6 TH/MM3 Differential Comment FINAL DIFF MANUAL Platelet Estimate NORMAL Platelet Morphology Comment NORMAL Ovalocytes 1+ Sodium Level 146 MEQ/L Potassium Level 4.1 MEQ/L Chloride Level 111 MEQ/L Carbon Dioxide Level 25.4 MEQ/L Anion Gap 10 MEQ/L Blood Urea Nitrogen 36 MG/DL Creatinine 1.06 MG/DL Estimat Glomerular Filtration 66 ML/MIN Rate Random Glucose 208 MG/DL Calcium Level 7.3 MG/DL Protein Corrected Calcium 8.6 MG/DL Total Protein 4.8 GM/DL Blood Type B NEGATIVE B NEGATIVE Antibody Screen NEGATIVE Crossmatch Leukocyte-Reduced Red Blood Cells Blood Bank Comment Assessment and Plan Problem List: (1) STEMI (ST elevation myocardial infarction) Assessment and Plan: Status post anterior STEMI, PTCA of prox and mid LAD, unsuccessful stenting. Stable overnight. Hemodynamically improving, now only on low dose Levophed. Agree EF by echo close to 45%. No evidence for CHF/ arrhythmias so far. REC continue aspirin; will add Plavix cont statin try to continue to wean Levophed off hold on beta ry until BP's better Code Status full code Discussed Condition With patient and family Problem Qualifiers (1) STEMI (ST elevation myocardial infarction): Qualified Code: I21.02 - ST elevation myocardial infarction involving left anterior descending (LAD) coronary artery Naun Ferrari MD Apr 07, 2016 10:58
[2016-04-07] MEDS: CLOPIDOGREL 75 MG TAB PO SCH (11:48)
[2016-04-07] MEDS: INSULIN ASPART SUPPLEMENTAL SCALE SQ SCH ×3 (11:48→19:51)
[2016-04-07] MEDS: methylPREDNISolone SOD SUCC 40 MG/1 ML VIAL IV SCH ×2 (13:07→20:48)
[2016-04-07 14:07] LABS: BLOOD GAS BASE EXCESS -3.5 mmol/L (-2-2); BLOOD GAS CARBOXYHEMOGLOBIN 0.9 % (0-4); BLOOD GAS HCO3 20 mmol/L (22-26); BLOOD GAS METHEMOGLOBIN 0.8 % (0-2); BLOOD GAS O2 HGB SATURATION 92 % (90-100); BLOOD GAS PCO2 30 mmHg (38-42); BLOOD GAS PO2 79 mmHg (61-120); BLOOD GAS TOTAL HGB 9.1 G/DL (12.0-16.0); TEMP CORR TO 98.6
[2016-04-07 14:08] LABS: CRITICAL VALUE NO; DRAW SITE RT RADIAL; LITER FLOW 4 L/M; NUMBER OF ARTERIAL PUNCTURES 2; OXYGEN DEVICE NASAL CANNULA; STAT NO; ULNAR PULSE PRESENT
--- NOTE | 2016-04-07 16:21 | RADRPT ---
EXAM DATE/TIME: 04/07/2016 15:15 [facility] COMPARISON: No previous studies available for comparison. INDICATIONS : Recurrent aspiration, possible bronchiectesis and empyema. RADIATION DOSE: 4.10 CTDIvol (mGy) MEDICAL HISTORY : Diabetes mellitus type 2. SURGICAL HISTORY : None. ENCOUNTER: Initial ACUITY: 2 days PAIN SCALE: 3/10 LOCATION: chest TECHNIQUE: Volumetric scanning of the chest was performed. Using automated exposure control and adjustment of t he mA and/or kV according to patient size, radiation dose was kept as low as reasonably achievable to obtain optimal diagnostic quality images. FINDINGS: Examination of the mediastinum demonstrates no abnormally enlarged lymph nodes by CT criteria. No axi llary or hilar abnormalities are identified. Coronary artery calcifications are present. The visualiz ed upper abdomen demonstrates no abnormality. There is bilateral lower lobe atelectasis versus pneumonia. Moderate size bilateral pleural effusions are identified. No bronchiectasis is seen. CONCLUSION: 1. Bilateral lower lobe atelectasis versus pneumonia. 2. Moderate bilateral effusions Lui Guerra MD on April 07, 2016 at 16:09 Board Certified Radiologist. This report was verified electronically.
[2016-04-07 16:42] LABS: MEAN CELL VOLUME 91.9 FL (80.0-100.0); MEAN CORPUSCULAR HEMOGLOBIN 30.7 PG (27.0-34.0); MEAN CORPUSCULAR HGB CONC 33.4 % (32.0-36.0); PLATELET COUNT 185 TH/MM3 (150-450); RED BLOOD COUNT 3.05 MIL/MM3 (4.50-5.90); RED CELL DISTRIBUTION WIDTH 15.3 % (11.6-17.2); REVIEW FLAG FINAL; WHITE BLOOD COUNT 7.1 TH/MM3 (4.0-11.0)
--- NOTE | 2016-04-07 17:07 | MB ---
cc: BRENNAN MOORE MD DATE OF CONSULTATION: 04/07/[address] Reich. REASON FOR CONSULTATION: Sepsis. Probable aspiration pneumonia. HISTORY OF PRESENT ILLNESS This is a 89-year-old white male who presented to emergency department on 04/05/2016, the patient was diagnosed with AST elevation myocardial infarction. He was also noted to have temperature of 103 degrees when he was admitted. The patient has a very difficult hearing. He was treated with antibiotics and he also was treated for the myocardial infarction. He is currently on oxygen via nasal cannula. He has no fever. Information is difficult to get from this patient because of his hearing and he is not conversing for any extended length of time. His white count had increased to 14.6 yesterday and is now down to 5.9. He denies complaints. He denies pain. Blood cultures were obtained and one of four bottles has staph coagulase negative. Chest x-ray Shows bibasilar parenchymal changes reported to have progressed slightly in the interval since last chest x-ray on 04/05. The patient does not have any cough or sputum production. PAST MEDICAL HISTORY 1. Hypercholesteremia 2. Diabetes mellitus 3. Gastroesophageal reflux disease. 4. Laminectomy L4/L5. ALLERGIES PENICILLIN AMOXICILLIN FLAGYL MEDICATIONS: Solu-Medrol Plavix Levemir Levaquin Lipitor Pepcid Aspirin. Aztreonam SOCIAL HISTORY: No tobacco, no alcohol. No illicit drugs. FAMILY HISTORY Noncontributory. REVIEW OF SYSTEMS Review of systems unable to obtain. PHYSICAL EXAMINATION: IN GENERAL: This is a slender male who appears well-nourished. He is in no acute distress. VITAL SIGNS: Include temperature of 98.4 blood pressure 106/58, heart rate 115. HEAD, EYES, EARS, NOSE, AND THROAT: Head is atraumatic. Extraocular movements grossly intact, pupils reactive to light without icterus. Oropharynx, partially edentulous with several missing teeth at the anterior aspect of the jaw. NECK: Supple. No adenopathy. LUNGS: Has rhonchi at both bases. HEART: Tachycardiac. Normal S1-S2. ABDOMEN: Bowel sounds present, soft, no tenderness appreciated. RECTUM: Rectal was not performed. EXTREMITIES: No clubbing or cyanosis or edema. SKIN: No rash. NEUROLOGIC: Patient appears alert. Nonfocal. PSYCHIATRIC: The patient calm and cooperative and responsive. LABORATORY DATA WBC 5.9, platelet count 173, hemoglobin 7.9, creatinine 1.06, BUN 36, estimated GFR 66, sodium 146. IMPRESSION Sepsis. Aspiration pneumonia. Positive blood culture with staph coagulase negative in 03/25 bottles suggesting contamination. STEMI RECOMMENDATIONS: 1. Continue Levaquin 2. Discontinue Aztreonam. 3. Monitor temperature and white blood cell count and followup chest x-ray. Thank you for this consultation. The patient appears to be clinically stable at this time. His progress will be monitored and further recommendations will be made on followup if necessary. Brennan Moore MD FD/sharyn /2:44 PM /4:57 PM YOLI
[2016-04-07] MEDS: ATORVASTATIN 40 MG TAB PO SCH (20:47)
[2016-04-07] MEDS: DOCUSATE SODIUM 100 MG/10 ML UDC PO SCH (20:48)
--- NOTE | 2016-04-07 23:17 | MB ---
cc: Gabriel IBARRA M.D. DATE OF CONSULTATION 04/07/16 REASON FOR CONSULTATION Respiratory insufficiency with atelectasis and pneumonia. HISTORY OF PRESENT ILLNESS This is an 89-year-old white male who has been admitted with progressive shortness of breath over the past month two weeks. The patient had an EKG in the ER which showed possible STEMI. He was seen by cardiology and had a PCI LAD and also was noted to be febrile initially and his x-rays upon admission showed bibasilar pulmonary infiltrates. The patient is a unreliable historian. He has a cough and brings up whitish mucus. There is no history of hemoptysis and no significant chest pain. He was placed on antibiotic therapy and subsequently admitted for evaluation. Over the past 48 hours, his condition has improved. He is now on a nasal cannula at 3-4 liters maintaining a saturation of over 92% and his cough has somewhat improved. PAST MEDICAL HISTORY 1. Diabetes mellitus type 2 2. Hypertension, 3. History of coronary artery disease PAST SURGICAL HISTORY Lumbar laminectomy. ALLERGIES FLAGYL PENICILLIN MEDICATIONS next 1. Lisinopril 5 mg at bedtime 2. Simvastatin 40 mg a daily 3. Aspirin one daily 3. Omeprazole 20 mg a day. HABITS The patient does not smoke and apparently has not used any alcohol recently. FAMILY HISTORY Noncontributory REVIEW OF SYSTEMS The patient has lost weight. He has trouble ambulating. He has wheezing, dyspnea and cough ____. He denies any urinary symptoms. He has had mild leg swelling. No calf muscle pains. PHYSICAL EXAMINATION GENERAL: This is an emaciated looking elderly man who is in bed, pale and mildly dyspneic at rest. VITAL SIGNS:: Blood pressure 110/60, pulse is 105, respirations of 22, temperature 98.5. HEENT: Head normocephalic. Pupils reactive. Tongue is moist and throat injected. Ears inflammation. NECK: Supple. No bruits, no thyroid enlargement. CHEST: Equal movements with wheezes bilaterally, prolonged expirations, crackles at the lung bases. HEART: The heart sounds are irregular S1 and S2. No murmur. ABDOMEN: Soft, protuberant. No masses, no organomegaly or tenderness. Bowel sounds are active EXTREMITIES: Muscle wasting and diminished pulses. Reflexes 1+. The patient does move his legs but weak. SKIN: Revealed no definite lesions. IMAGING STUDIES Chest x-ray demonstrated bibasilar pulmonary infiltrates and small effusions. LABORATORY DATA Hemoglobin is 9.3 with a white count of 14.3. IMPRESSION 1. ST elevation myocardial infarction 2. Chronic respiratory failure. 3. Basilar pneumonia and hypoxemia. 4. Chronic obstructive pulmonary disease 5. Diabetes mellitus type 2. PLAN The patient has been placed on O2 at 3 liters nasal cannula. We will continue with antibiotic coverage as ordered. Sputum will be sent for gram stain and culture. A CT scan of the chest to be done to evaluate him for any lung nodules. The patient will be given an incentive spirometer every two hours. Cardiac meds will be continued and electrolytes and BUN to be repeated today as well. Thank you Dr. Reich for this consultation. MD OSIEL Larios/ /10:44 PM /11:01 PM
[2016-04-08] VITALS (10 sets, daily range): BP systolic 96–116; BP diastolic 53–64; PULSE 101–126; RESP 16–30; TEMP 96.7–98; O2SAT 93–100
[2016-04-08] MEDS: CHLORHEXIDINE GLUCONATE 2 % 1 PACK (2 CLOTHS)(taper/protocol) TOP SCH (00:17)
[2016-04-08] MEDS: INSULIN ASPART SUPPLEMENTAL SCALE SQ SCH ×6 (04:00→20:00)
[2016-04-08] MEDS: FAMOTIDINE 20 MG/2 ML VIAL IV PUSH SCH ×2 (04:17→16:44)
[2016-04-08] MEDS: LEVOFLOXACIN 250 MG PREMIX INJ 50 ML IV SCH (04:17)
[2016-04-08] MEDS: methylPREDNISolone SOD SUCC 40 MG/1 ML VIAL IV SCH ×2 (04:17→13:04)
[2016-04-08] MEDS: DEXTROSE 50% IN WATER 50 ML VIAL(D50) IV PRN ×2 (04:18→06:49)
[2016-04-08 05:26] LABS: HEMATOCRIT 26.6 % (39.0-51.0); MEAN CELL VOLUME 92.1 FL (80.0-100.0); MEAN CORPUSCULAR HEMOGLOBIN 31.7 PG (27.0-34.0); MEAN CORPUSCULAR HGB CONC 34.5 % (32.0-36.0); PLATELET COUNT 177 TH/MM3 (150-450); RED BLOOD COUNT 2.88 MIL/MM3 (4.50-5.90); RED CELL DISTRIBUTION WIDTH 15.2 % (11.6-17.2); WHITE BLOOD COUNT 7.4 TH/MM3 (4.0-11.0)
[2016-04-08 05:31] LABS: HEMO FLAGS AUTO DIFF
--- NOTE | 2016-04-08 05:40 | RADRPT ---
EXAM DATE/TIME: 04/08/2016 04:46 [facility] COMPARISON: No previous studies available for comparison. INDICATIONS : Fall, altered mental status. RADIATION DOSE: 37.0 CTDIvol (mGy) MEDICAL HISTORY : diabetes SURGICAL HISTORY : None. ENCOUNTER: Initial ACUITY: 1 day PAIN SCALE: Non-responsive LOCATION: cranial TECHNIQUE: Multiple contiguous axial images were obtained of the head. Using automated exposure control and adj ustment of the mA and/or kV according to patient size, radiation dose was kept as low as reasonably a chievable to obtain optimal diagnostic quality images. FINDINGS: There is mild symmetric atrophy. An old lacunar infarct in right basal ganglia. No evidence of intrac ranial hemorrhage or mass. Nothing to suggest acute infarction. Extracranial structures are benign an d intact. CONCLUSION: No evidence of acute intracranial findings Fabien Randall MD on April 08, 2016 at 5:37 Board Certified Radiologist. This report was verified electronically.
[2016-04-08 06:00] LABS: ALKALINE PHOSPHATASE 71 U/L (45-117); ALT (GPT) 32 U/L (12-78); ANION GAP 8 MEQ/L (5-15); AST (GOT) 99 U/L (15-37); BICARBONATE 25.9 MEQ/L (21.0-32.0); BLOOD UREA NITROGEN 29 MG/DL (7-18); CHLORIDE 111 MEQ/L (98-107); GLOMERULAR FILTRATION RATE 85 ML/MIN (>89); POTASSIUM 3.3 MEQ/L (3.5-5.1); SODIUM (NA) 145 MEQ/L (136-145); TOTAL BILIRUBIN ADULT 0.4 MG/DL (0.2-1.0)
--- NOTE | 2016-04-08 06:17 | RADRPT ---
EXAM DATE/TIME: 04/08/2016 04:51 [facility] COMPARISON: CT THORAX W/O CONTRAST, April 07, 2016, 15:15. CHEST SINGLE AP, April 06, 2016, 15:00. INDICATIONS : Shortness of breath. MEDICAL HISTORY : Chronic obstructive pulmonary disease. Diabetes mellitus type II. SURGICAL HISTORY : None. ENCOUNTER: Subsequent ACUITY: 4 - 6 days PAIN SCORE: Non-responsive. LOCATION: Bilateral chest FINDINGS: One except for line remains in place. Basilar infiltrates and effusions persist without significant c hange. Cardiomediastinal contours are stable. CONCLUSION: Stable chest appearance. Fabien Randall MD on April 08, 2016 at 6:15 Board Certified Radiologist. This report was verified electronically.
[2016-04-08 07:55] LABS: BANDS 34 % (0-6); OVALOCYTES 1+ (NORMAL); PLATELET ESTIMATE SMEAR NORMAL (NORMAL); PLATELET MORPHOLOGY NORMAL (NORMAL); POLYS (SEG NEUTROPHILS) 61 % (16-70); WBC DIFF SAMPLE 100
[2016-04-08 07:56] LABS: SCAN/DIFF FINAL DIFF MANUAL
[2016-04-08] MEDS: RESP: ALBUTEROL 2.5 MG/IPRATROPIUM 0.5 MG NEB (SCH) NEB ×3 (07:59→20:11)
--- NOTE | 2016-04-08 08:36 | PD.CARD.PN ---
Subjective Subjective Remarks Somnolent. Objective Medications Item Value Date Time Atorvastatin 40 mg 04/06/16 2100 Calcium HS/PO (Lipitor) Aspirin 325 mg 04/06/16 0900 (Aspirin) DAILY/PO 04/07/16 0902 Norepinephrine 250 ml @ 0 mls/hr 04/06/16 0145 Bitartrate TITRATE/IV 04/06/16 203 Clopidogrel 75 mg 04/07/16 1100 Bisulfate DAILY/PO 04/07/16 1148 (Plavix) Atorvastatin 40 mg 04/06/16 2100 Calcium HS/PO 04/07/162046 (Lipitor) Vital Signs / I&O Vital Signs Date Time Temp Pulse Resp B/P Pulse Ox O2 Delivery O2 Flow Rate FiO2 04/08/16 08:01 93 Nasal Cannula 4.00 04/08/16 06:00 112 04/08/16 04:00 98.0 126 16 116/61 100 04/08/16 04:00 126 04/08/16 02:00 101 04/08/16 00:00 104 04/08/16 00:00 96.7 104 24 105/58 100 04/07/16 22:00 109 04/07/16 20:30 96 21 04/07/16 20:00 104 04/07/16 20:00 98.1 104 25 101/55 98 04/07/16 18:00 104 04/07/16 16:00 99.0 109 20 107/58 100 04/07/16 16:00 109 04/07/16 14:00 115 04/07/16 12:00 98.7 120 18 113/55 100 04/07/16 12:00 120 04/07/16 11:36 97 Nasal Cannula 2.00 04/07/16 10:00 109 I/O 04/07/16 04/07/16 04/07/16 04/08/16 04/08/16 04/08/16 07:00 15:00 23:00 07:00 15:00 23:00 Intake Total 855 ml 956 ml 880 ml 51 ml Output Total 550 ml 350 ml 450 ml Balance 305 ml 606 ml 430 ml 51 ml Intake Oral 240 ml 150 ml IV Total 855 ml 716 ml 730 ml 51 ml Output Urine Total 550 ml 350 ml 450 ml # Bowel Movements 1 Physical Exam GENERAL: Well developed, very thin. No acute distress. HEENT: Jugular venous pressure is normal. CHEST: Lungs clear to auscultation anteriorly. CARDIAC: Regular rate and rhythm without S3, S4. I/ AKHIL RUSB. ABDOMEN: Soft, nontender, no hepatosplenomegaly. Bowel sounds present. EXTREMITIES: No clubbing, cyanosis, or edema. Laboratory Laboratory Tests Test 04/07/16 04/07/16 04/07/16 04/08/16 09:25 14:00 15:40 03:45 Blood Type B NEGATIVE Blood Gas Puncture Site RT RADIAL Blood Gas Patient Temperature 98.6 Blood Gas HCO3 20 mmol/L Blood Gas Base Excess -3.5 mmol/L Blood Gas Oxygen Saturation 92 % Arterial Blood pH 7.44 Arterial Blood Partial 30 mmHg Pressure CO2 Arterial Blood Partial 79 mmHg Pressure O2 Arterial Blood Oxygen Content 12.0 Vol % Arterial Blood 0.9 % Carboxyhemoglobin Arterial Blood Methemoglobin 0.8 % Blood Gas Hemoglobin 9.1 G/DL Oxygen Delivery Device NASAL CANNULA Blood Gas Liter Flow 4 L/M White Blood Count 7.1 TH/MM3 7.4 TH/MM3 Red Blood Count 3.05 MIL/MM3 2.88 MIL/MM3 Hemoglobin 9.4 GM/DL 9.2 GM/DL Hematocrit 28.0 % 26.6 % Mean Corpuscular Volume 91.9 FL 92.1 FL Mean Corpuscular Hemoglobin 30.7 PG 31.7 PG Mean Corpuscular Hemoglobin 33.4 % 34.5 % Concent Red Cell Distribution Width 15.3 % 15.2 % Platelet Count 185 TH/MM3 177 TH/MM3 Mean Platelet Volume 9.5 FL 9.6 FL Random Cortisol 46.5 MCG/DL Neutrophils (%) (Auto) % Lymphocytes (%) (Auto) % Monocytes (%) (Auto) % Eosinophils (%) (Auto) % Basophils (%) (Auto) % Neutrophils # (Auto) TH/MM3 Lymphocytes # (Auto) TH/MM3 Monocytes # (Auto) TH/MM3 Eosinophils # (Auto) TH/MM3 Basophils # (Auto) TH/MM3 CBC Comment AUTO DIFF Differential Total Cells 100 Counted Neutrophils % (Manual) 61 % Band Neutrophils % 34 % Lymphocytes % 3 % Monocytes % 2 % Neutrophils # (Manual) 7.0 TH/MM3 Differential Comment FINAL DIFF MANUAL Platelet Estimate NORMAL Platelet Morphology Comment NORMAL Ovalocytes 1+ Sodium Level 145 MEQ/L Potassium Level 3.3 MEQ/L Chloride Level 111 MEQ/L Carbon Dioxide Level 25.9 MEQ/L Anion Gap 8 MEQ/L Blood Urea Nitrogen 29 MG/DL Creatinine 0.85 MG/DL Estimat Glomerular Filtration 85 ML/MIN Rate Random Glucose 31 MG/DL Calcium Level 7.8 MG/DL Total Bilirubin 0.4 MG/DL Aspartate Amino Transf 99 U/L (AST/SGOT) Alanine Aminotransferase 32 U/L (ALT/SGPT) Alkaline Phosphatase 71 U/L Total Protein 5.2 GM/DL Albumin 2.0 GM/DL Assessment and Plan Problem List: (1) STEMI (ST elevation myocardial infarction) Assessment and Plan: Status post anterior STEMI, PTCA of prox and mid LAD, unsuccessful stenting. Stable overnight. Hemodynamically improving, now off Levophed. EF by echo close to 45%. No evidence for CHF/arrhythmias so far. REC continue aspirin, Plavix cont statin hold on beta ry until BP's better OK to transfer out of ICU from cardiac standpoint Code Status full code Problem Qualifiers (1) STEMI (ST elevation myocardial infarction): Qualified Code: I21.02 - ST elevation myocardial infarction involving left anterior descending (LAD) coronary artery Naun Ferrari MD Apr 08, 2016 08:36
[2016-04-08] MEDS: CLOPIDOGREL 75 MG TAB PO SCH (09:00)
[2016-04-08] MEDS: SODIUM CHLORIDE 0.9% FLUSH 5 ML FLUSH IVF SCH ×2 (09:00→21:00)
[2016-04-08] MEDS: ASPIRIN 325 MG TAB PO SCH (09:01)
[2016-04-08] MEDS: DOCUSATE SODIUM 100 MG/10 ML UDC PO SCH ×2 (09:01→22:05)
--- NOTE | 2016-04-08 12:21 | HHI.HCPN ---
Reason for visit a. To assist with evaluation and management of symptoms including: chest pain, hypoglycemia. b. To assist medical decision maker(s) with: better understanding of current medical conditions; weighing benefits/burdens of medical treatment options; making medical treatment decisions. . (JARRELL SIFUENTES) Subjective/Interval History Patient seen and examined in ICU. at bedside. Patient is awake and alert, he is trying to climb out of bed. Bilateral soft wrist restraints replaced. Patient fell last night per nurse, no acute injury. Was hypoglycemic, glucose 31. He passed swallow evaluation, eating small amounts per report. Afebrile. Tachycardic, atrial fibrillation on monitor. BP 96/53. Oxygen via NC 4 LPM. Chest x-ray stable. WBC 7.4, hemoglobin 9.2, hematocrit 26.6, platelets 177. Albumin 2.0. . Family/friend interactions Spoke with at bedside. Questions answered. She is frustrated and appears tired. She appreciates medical update. Verbalizes she has my phone number should she have any additional concerns. . (JARRELL SIFUENTES) Advance Directives Living Will: Never completed Health Care Surrogate: Never completed Durable Power of Secretarial Stenographer: Never completed (JARRELL SIFUENTES) Advance Directive Specifics Health Care Surrogate(s): No known written advance directives. According to [place] statutes health care proxy decision-making falls to his spouse. . Significant change in goals: FULL CODE. Continue aggressive care. . (JARRELL SIFUENTES) Objective Vital Signs Date Time Temp Pulse Resp B/P Pulse Ox O2 Delivery O2 Flow Rate FiO2 04/08/16 08:01 93 Nasal Cannula 4.00 04/08/16 08:00 97.8 102 22 96/53 95 04/08/16 06:00 112 04/08/16 04:00 98.0 126 16 116/61 100 04/08/16 04:00 126 04/08/16 02:00 101 04/08/16 00:00 104 04/08/16 00:00 96.7 104 24 105/58 100 04/07/16 22:00 109 04/07/16 20:30 96 21 04/07/16 20:00 104 04/07/16 20:00 98.1 104 25 101/55 98 04/07/16 18:00 104 04/07/16 16:00 99.0 109 20 107/58 100 04/07/16 16:00 109 04/07/16 14:00 115 Intake & Output 04/08/16 04/08/16 07:00 19:00 Intake Total 931 ml Output Total 450 ml Balance 481 ml Intake Oral 150 ml IV Total 781 ml Output Urine Total 450 ml Physical Exam CONSTITUTIONAL/GENERAL: This is a cachectic, critically ill patient, in no apparent distress. TUBES/LINES/DRAINS: right IJ central line, PIV right, Valenzuela, SCDs. SKIN: No jaundice, rashes, or lesions. Ecchymoses on upper extremities. No wounds seen anteriorly. Skin temperature appropriate. Not diaphoretic. ENT: Hard of hearing. Nose without bleeding or purulent drainage. Throat without visible erythema, exudates, masses, or lesions. CARDIOVASCULAR: Regular rate and rhythm without murmurs, gallops, or rubs. RESPIRATORY/CHEST: Symmetric, unlabored respirations. Few scattered faint crackles. GASTROINTESTINAL: Abdomen soft, non-tender, nondistended. No guarding. Bowel sounds present. GENITOURINARY: Without palpable bladder distension. Valenzuela catheter in place. MUSCULOSKELETAL: Extremities without clubbing, cyanosis, or edema. No mottling or clubbing. NEUROLOGICAL: Awake and alert. Falls off to sleep during my visit. Follows commands. Moves all extremities. PSYCHIATRIC: No obvious anxiety/depression. no apparent hallucinations or other psychotic thought process. . (JARRELL SIFUENTESP-C) Diagnostic Tests Laboratory Laboratory Tests Test 04/05/16 04/05/16 04/05/16 04/06/16 19:15 19:30 19:50 00:00 White Blood Count 7.7 TH/MM3 (4.0-11.0) Red Blood Count 3.69 MIL/MM3 (4.50-5.90) Hemoglobin 11.7 GM/DL (13.0-17.0) Bedside Hemoglobin 10.9 G/DL (12.0-17.0) Hematocrit 34.6 % (39.0-51.0) Bedside Hematocrit 32.0 % (38.0-51.0) Mean Corpuscular Volume 93.8 FL (80.0-100.0) Mean Corpuscular Hemoglobin 31.7 PG (27.0-34.0) Mean Corpuscular Hemoglobin 33.8 % Concent (32.0-36.0) Red Cell Distribution Width 14.0 % (11.6-17.2) Platelet Count 235 TH/MM3 (150-450) Mean Platelet Volume 9.6 FL (7.0-11.0) Neutrophils (%) (Auto) 91.9 % (16.0-70.0) Lymphocytes (%) (Auto) 2.0 % (9.0-44.0) Monocytes (%) (Auto) 5.7 % (0.0-8.0) Eosinophils (%) (Auto) 0.1 % (0.0-4.0) Basophils (%) (Auto) 0.3 % (0.0-2.0) Neutrophils # (Auto) 7.1 TH/MM3 (1.8-7.7) Lymphocytes # (Auto) 0.2 TH/MM3 (1.0-4.8) Monocytes # (Auto) 0.4 TH/MM3 (0-0.9) Eosinophils # (Auto) 0.0 TH/MM3 (0-0.4) Basophils # (Auto) 0.0 TH/MM3 (0-0.2) CBC Comment DIFF FINAL Differential Comment Prothrombin Time 13.1 SEC (9.8-11.6) Prothromb Time International 1.2 RATIO Ratio Activated Partial 29.7 SEC Thromboplast Time (24.3-30.1) Bedside Sodium 135 MMOL/L (138-146) Bedside Potassium 4.0 MMOL/L (3.5-4.9) Bedside Chloride 94 MMOL/L (98-109) Bedside Blood Urea Nitrogen 29 MG/DL (8-26) Bedside Creatinine 1.0 MG/DL (0.8-1.3) Bedside Glucose 283 MG/DL (60-95) Calcium Level 8.3 MG/DL (8.5-10.1) Magnesium Level 2.1 MG/DL (1.5-2.5) Total Creatine Kinase 88 U/L (39-308) Troponin I 0.16 NG/ML (0.02-0.05) B-Type Natriuretic Peptide 211 PG/ML (0-100) Lactic Acid Level 2.7 mmol/L (0.4-2.0) Urine Color YELLOW (YELLW/STRAW) Urine Turbidity CLEAR (CLEAR) Urine pH 5.5 (5.0-8.5) Urine Specific [place] 1.016 (1.002-1.035) Urine Protein 30 mg/dL (NEG-TRACE) Urine Glucose (UA) 1000 mg/dL (NEG) Urine Ketones 10 mg/dL (NEG) Urine Occult Blood SMALL (NEG) Urine Nitrite NEG (NEG) Urine Bilirubin NEG (NEG) Urine Urobilinogen LESS THAN 2.0 MG/DL (LESS THAN 2.0) Urine Leukocyte Esterase NEG (NEG) Urine RBC 2 /hpf (0-3) Urine WBC 1 /hpf (0-5) Urine Bacteria OCC /hpf (NONE) Urine Mucus FEW /lpf (OCC) Microscopic Urinalysis Comment CATH-CULT NOT IND Nasal Screen MRSA (PCR) NEGATIVE (NEGATIVE) Test 04/06/16 04/07/16 04/07/16 04/07/16 03:32 04:00 06:25 09:25 White Blood Count 14.6 TH/MM3 5.9 TH/MM3 (4.0-11.0) (4.0-11.0) Red Blood Count 2.99 MIL/MM3 2.52 MIL/MM3 (4.50-5.90) (4.50-5.90) Hemoglobin 9.3 GM/DL 7.9 GM/DL (13.0-17.0) (13.0-17.0) Hematocrit 28.8 % 23.6 % (39.0-51.0) (39.0-51.0) Mean Corpuscular Volume 96.6 FL 93.5 FL (80.0-100.0) (80.0-100.0) Mean Corpuscular Hemoglobin 31.1 PG 31.3 PG (27.0-34.0) (27.0-34.0) Mean Corpuscular Hemoglobin 32.2 % 33.4 % Concent (32.0-36.0) (32.0-36.0) Red Cell Distribution Width 14.3 % 14.5 % (11.6-17.2) (11.6-17.2) Platelet Count 244 TH/MM3 173 TH/MM3 (150-450) (150-450) Mean Platelet Volume 9.3 FL 9.2 FL (7.0-11.0) (7.0-11.0) Neutrophils (%) (Auto) % (16.0-70.0) % (16.0-70.0) Lymphocytes (%) (Auto) % (9.0-44.0) % (9.0-44.0) Monocytes (%) (Auto) % (0.0-8.0) % (0.0-8.0) Eosinophils (%) (Auto) % (0.0-4.0) % (0.0-4.0) Basophils (%) (Auto) % (0.0-2.0) % (0.0-2.0) Neutrophils # (Auto) TH/MM3 TH/MM3 (1.8-7.7) (1.8-7.7) Lymphocytes # (Auto) TH/MM3 TH/MM3 (1.0-4.8) (1.0-4.8) Monocytes # (Auto) TH/MM3 (0-0.9) TH/MM3 (0-0.9) Eosinophils # (Auto) TH/MM3 (0-0.4) TH/MM3 (0-0.4) Basophils # (Auto) TH/MM3 (0-0.2) TH/MM3 (0-0.2) CBC Comment AUTO DIFF AUTO DIFF Differential Total Cells 100 100 Counted Neutrophils % (Manual) 70 % (16-70) 75 % (16-70) Band Neutrophils % 25 % (0-6) 20 % (0-6) Lymphocytes % 1 % (9-44) 1 % (9-44) Monocytes % 4 % (0-8) 4 % (0-8) Neutrophils # (Manual) 13.9 TH/MM3 5.6 TH/MM3 (1.8-7.7) (1.8-7.7) Differential Comment FINAL DIFF FINAL DIFF MANUAL MANUAL Platelet Estimate NORMAL NORMAL (NORMAL) (NORMAL) Platelet Morphology Comment NORMAL NORMAL (NORMAL) (NORMAL) Ovalocytes 1+ (NORMAL) 1+ (NORMAL) Activated Partial 38.3 SEC Thromboplast Time (24.3-30.1) Sodium Level 135 MEQ/L 146 MEQ/L (136-145) (136-145) Potassium Level 4.7 MEQ/L 4.1 MEQ/L (3.5-5.1) (3.5-5.1) Chloride Level 97 MEQ/L 111 MEQ/L (98-107) (98-107) Carbon Dioxide Level 26.8 MEQ/L 25.4 MEQ/L (21.0-32.0) (21.0-32.0) Anion Gap 11 MEQ/L (5-15) 10 MEQ/L (5-15) Blood Urea Nitrogen 32 MG/DL (7-18) 36 MG/DL (7-18) Creatinine 1.39 MG/DL 1.06 MG/DL (0.60-1.30) (0.60-1.30) Estimat Glomerular Filtration 48 ML/MIN (>89) 66 ML/MIN (>89) Rate Random Glucose 473 MG/DL 208 MG/DL (74-106) (74-106) Lactic Acid Level 2.7 mmol/L (0.4-2.0) Calcium Level 7.7 MG/DL 7.3 MG/DL (8.5-10.1) (8.5-10.1) Total Creatine Kinase 413 U/L (39-308) Creatine Kinase MB 52.5 NG/ML (0.5-3.6) Creatine Kinase MB % 12.7 % (0.0-4.0) Triglycerides Level 80 MG/DL (42-150) Cholesterol Level 119 MG/DL (120-200) LDL Cholesterol 59 MG/DL (0-99) HDL Cholesterol 44.2 MG/DL (40.0-60.0) Cholesterol/HDL Ratio 2.69 RATIO Protein Corrected Calcium 8.6 MG/DL (8.5-10.1) Total Protein 4.8 GM/DL (6.4-8.2) Blood Type B NEGATIVE B NEGATIVE Antibody Screen NEGATIVE Crossmatch Leukocyte-Reduced Red Blood Cells Blood Bank Comment Test 04/07/16 04/07/16 04/08/16 14:00 15:40 03:45 Blood Gas Puncture Site RT RADIAL Blood Gas Patient Temperature 98.6 Blood Gas HCO3 20 mmol/L (22-26) Blood Gas Base Excess -3.5 mmol/L (-2-2) Blood Gas Oxygen Saturation 92 % (90-100) Arterial Blood pH 7.44 (7.380-7.420) Arterial Blood Partial 30 mmHg (38-42) Pressure CO2 Arterial Blood Partial 79 mmHg Pressure O2 (61-120) Arterial Blood Oxygen Content 12.0 Vol % (12.0-20.0) Arterial Blood 0.9 % (0-4) Carboxyhemoglobin Arterial Blood Methemoglobin 0.8 % (0-2) Blood Gas Hemoglobin 9.1 G/DL (12.0-16.0) Oxygen Delivery Device NASAL CANNULA Blood Gas Liter Flow 4 L/M White Blood Count 7.1 TH/MM3 7.4 TH/MM3 (4.0-11.0) (4.0-11.0) Red Blood Count 3.05 MIL/MM3 2.88 MIL/MM3 (4.50-5.90) (4.50-5.90) Hemoglobin 9.4 GM/DL 9.2 GM/DL (13.0-17.0) (13.0-17.0) Hematocrit 28.0 % 26.6 % (39.0-51.0) (39.0-51.0) Mean Corpuscular Volume 91.9 FL 92.1 FL (80.0-100.0) (80.0-100.0) Mean Corpuscular Hemoglobin 30.7 PG 31.7 PG (27.0-34.0) (27.0-34.0) Mean Corpuscular Hemoglobin 33.4 % 34.5 % Concent (32.0-36.0) (32.0-36.0) Red Cell Distribution Width 15.3 % 15.2 % (11.6-17.2) (11.6-17.2) Platelet Count 185 TH/MM3 177 TH/MM3 (150-450) (150-450) Mean Platelet Volume 9.5 FL 9.6 FL (7.0-11.0) (7.0-11.0) Random Cortisol 46.5 MCG/DL Neutrophils (%) (Auto) % (16.0-70.0) Lymphocytes (%) (Auto) % (9.0-44.0) Monocytes (%) (Auto) % (0.0-8.0) Eosinophils (%) (Auto) % (0.0-4.0) Basophils (%) (Auto) % (0.0-2.0) Neutrophils # (Auto) TH/MM3 (1.8-7.7) Lymphocytes # (Auto) TH/MM3 (1.0-4.8) Monocytes # (Auto) TH/MM3 (0-0.9) Eosinophils # (Auto) TH/MM3 (0-0.4) Basophils # (Auto) TH/MM3 (0-0.2) CBC Comment AUTO DIFF Differential Total Cells 100 Counted Neutrophils % (Manual) 61 % (16-70) Band Neutrophils % 34 % (0-6) Lymphocytes % 3 % (9-44) Monocytes % 2 % (0-8) Neutrophils # (Manual) 7.0 TH/MM3 (1.8-7.7) Differential Comment FINAL DIFF MANUAL Platelet Estimate NORMAL (NORMAL) Platelet Morphology Comment NORMAL (NORMAL) Ovalocytes 1+ (NORMAL) Sodium Level 145 MEQ/L (136-145) Potassium Level 3.3 MEQ/L (3.5-5.1) Chloride Level 111 MEQ/L (98-107) Carbon Dioxide Level 25.9 MEQ/L (21.0-32.0) Anion Gap 8 MEQ/L (5-15) Blood Urea Nitrogen 29 MG/DL (7-18) Creatinine 0.85 MG/DL (0.60-1.30) Estimat Glomerular Filtration 85 ML/MIN (>89) Rate Random Glucose 31 MG/DL (74-106) Calcium Level 7.8 MG/DL (8.5-10.1) Total Bilirubin 0.4 MG/DL (0.2-1.0) Aspartate Amino Transf 99 U/L (15-37) (AST/SGOT) Alanine Aminotransferase 32 U/L (12-78) (ALT/SGPT) Alkaline Phosphatase 71 U/L (45-117) Total Protein 5.2 GM/DL (6.4-8.2) Albumin 2.0 GM/DL (3.4-5.0) (JARRELL SIFUENTES-Gi) Result Diagram: 04/08/16 0345 04/08/16 0345 Microbiology Microbiology Date/Time Procedure Status Source Growth 04/05/16 19:15 Aerobic Blood Culture - Preliminary Resulted Blood Peripheral Staph Sp Coagulase Negative 04/05/16 19:15 Anaerobic Blood Culture - Preliminary Resulted Blood Peripheral NO GROWTH IN 1 DAY 04/05/16 19:30 Aerobic Blood Culture - Preliminary Resulted Blood Peripheral NO GROWTH IN 3 DAYS 04/05/16 19:30 Anaerobic Blood Culture - Preliminary Resulted Blood Peripheral NO GROWTH IN 3 DAYS . Imaging Last Impressions Chest X-Ray 04/08/16 0600 Signed Impressions: Service Date/Time: Friday, April 08, 2016 04:51 - CONCLUSION: Stable chest appearance. Fabien Randall MD Head CT 04/08/16 0330 Signed Impressions: Service Date/Time: Friday, April 08, 2016 04:46 - CONCLUSION: No evidence of acute intracranial findings Fabien Randall MD Chest CT 04/07/16 0000 Signed Impressions: Service Date/Time: Thursday, April 07, 2016 15:15 - CONCLUSION: 1. Bilateral lower lobe atelectasis versus pneumonia. 2. Moderate bilateral effusions Lui Guerra MD . Procedures * 04/06/16 - right IJ central line placed. * 04/05/16 - emergent cardiac cath with angioplasty and unsuccessful stenting of 3 vessel disease. . (JARRELL SIFUENTES) Assessment and Plan Disease Oriented Problem List: (1) STEMI (ST elevation myocardial infarction) Comment: s/p cardiac cath with angioplasty, unsuccessful stenting of 3 vessel disease. . (2) Acute on chronic respiratory failure with hypoxemia (3) Diabetes mellitus type 2, uncontrolled (4) Pneumonia Comment: aspiration pneumonia Symptom Scale: (1) Chest pain 0-10 Scale: 0 (2) Dysphagia 0-10 Scale: 0 Comment: Passed swallow eval, eating small amounts. . Pertinent Non-Medical Issues Psychosocial: . Spiritual: Anglican sonu. Legal: No known written advanced directives. According to [place] statutes, health care proxy decision-making falls to the patient's spouse. Ethical issues impacting care: No known concerns at this time. . Important Contacts * Az Hartley, spouse/HCP: [phone] * Millie Hartley, daughter: [phone] lives in [place], [place] . Prognosis Mr. Hartley is an 89-year-old admitted with STEMI s/p angioplasty and unsuccessful stenting of 3 vessel disease who remains in ICU on pressor support and failed swallow evaluation. He is cachectic with chronic aspiration. He is high risk for further decline. . Code Status: Full Code Plan * No known written advanced directives. According to [place] statutes, health care proxy decision-making falls to the patient's spouse. * FULL CODE per conversation with Dr. Knowles prior to my visit. * Palliative care spoke with at bedside. Family desires continued aggressive care. * SYMPTOMS: Dysphagia: passed swallow evaluation, eating small amounts. Chest pain: has resolved. Denies pain today. * Palliative care will continue to follow throughout hospital course to assist with symptom management and further clarification of treatment goals. . (JARRELL SIFUENTES) Attestation To help prompt me to consider important information that might be impacting today's encounter and assessment, information from prior notes written by myself or my colleagues may have been "brought forward" into today's note. My signature on this note, however, is an attestation that I personally performed the exam, history, and/or decision-making noted today, and, unless otherwise indicated, the interactions with patient, family, and staff as well as the review of records all occurred today. I also attest that the listed assessment and stated plan reflect my best clinical judgment today based on the combination of historical information, prior notes, and today's exam/ interactions. When time spent is documented, it refers only to time spent today by the signer, or if indicated, combined time spent today by collaborating physician/nurse practitioner. . (JARRELL SIFUENTES) Collaborating MD Comments Chart reviewed. Case discussed with palliative care TENSIONING MACHINE OPERATOR. Above TENSIONING MACHINE OPERATOR note reviewed and I concur. . (Toni Cooper MD) JARRELL SIFUENTES Apr 08, 2016 12:21 Toni Cooper MD May 10, 2016 07:47
--- NOTE | 2016-04-08 13:14 | HHI.IDPN ---
Note Infectious Disease Note Patient is awake and alert. at bedside. Reports that he is not making sense at times. Fell last night. Head CT showed no lesions or hemorrhage. Speaking mostly [place] language and some Ghanaian. Denies pain. BP low. Afebrile. This is a 89-year-old white male who presented to emergency department on 04/05/2016, the patient was diagnosed with ST elevation myocardial infarction and fever. PAST MEDICAL HISTORY 1. Hypercholesteremia 2. Diabetes mellitus 3. Gastroesophageal reflux disease. 4. Laminectomy L4/L5. ALLERGIES PENICILLIN AMOXICILLIN FLAGYL MEDICATIONS: Current Medications Medications (Trade) Dose Ordered Sig/Jodie Route PRN Reason Start Time Stop Time Status Last Admin Dose Admin Nitroglycerin/ Dextrose (Nitroglycerin-Dextrose Inj) 250 ml @ 0 mls/hr TITRATE IV 04/05/16 19:30 04/05/16 20:16 IV Flush (NS Flush) 2 ml UNSCH PRN IVF FLUSH AFTER USING IV ACCESS 04/05/16 22:00 04/07/16 09:02 IV Flush (NS Flush) 2 ml BID IVF 04/06/16 09:00 04/07/16 20:48 Acetaminophen (Tylenol) 325 mg Q4H PRN PO PAIN SCALE 1 TO 5 04/05/16 22:00 Morphine Sulfate (Morphine Inj) 2 mg Q30M PRN IV PUSH PAIN GREATER THAN 5. NOTIFY MD 04/05/16 22:00 04/06/16 20:45 Temazepam (Restoril) 15 mg HS PRN PO SLEEP 04/05/16 22:00 04/08/16 01:20 Aspirin (Aspirin) 325 mg DAILY PO 04/06/16 09:00 04/08/16 09:01 Atropine Sulfate (Atropine Inj) 0.5 mg UNSCH PRN IV VAGAL REPONSE 04/05/16 22:00 Ondansetron HCl (Zofran Inj) 4 mg Q4H PRN IV NAUSEA 04/05/16 22:00 Atorvastatin Calcium (Lipitor) 40 mg HS PO 04/06/16 21:00 04/07/16 20:47 Miscellaneous Information Patient in critical care unit? Ass... [id number] XX 04/05/16 23:15 04/06/16 07:42 Chlorhexidine Gluconate (Chlorhexidine 2% Cloth) 3 pack DAILY@04 TOP 04/06/16 04:00 04/10/16 04:01 04/08/16 00:17 Chlorhexidine Gluconate 3 pack 3 pack UNSCH PRN TOP HYGIENIC CARE 04/05/16 23:15 04/10/16 23:12 Norepinephrine Bitartrate (Levophed-Dextrose Drip) 250 ml @ 0 mls/hr TITRATE IV 04/06/16 01:45 04/06/16 20:33 Famotidine 10 mg 10 mg Q12H IV PUSH 04/06/16 18:00 04/08/16 04:17 Levofloxacin/ Dextrose (Levaquin 250 Mg Premix Inj) 50 ml @ 50 mls/hr Q24H IV 04/07/16 05:00 04/08/16 04:17 Insulin Aspart (NovoLOG SUPPLEMENTAL SCALE) 1 Q4HR SQ 04/07/16 12:00 04/07/16 11:48 Dextrose (D50w (Vial) Inj) 25 ml UNSCH PRN IV HYPOGLYCEMIA-SEE COMMENTS 04/07/16 09:30 04/08/16 06:49 Glucagon (Glucagon Inj) 1 mg UNSCH PRN IM/SQ HYPOGLYCEMIA-SEE COMMENTS 04/07/16 09:30 Docusate Sodium (Colace Liq) 100 mg Q12HR PO 04/07/16 21:00 04/08/16 09:01 Clopidogrel Bisulfate (Plavix) 75 mg DAILY PO 04/07/16 11:00 04/08/16 09:00 Methylprednisolone Sodium Succinate (SoluMEDROL INJ) 40 mg Q8H IV 04/07/16 13:00 04/08/16 13:04 Insulin Detemir (Levemir Inj) 10 units DAILY SQ 04/08/16 09:00 SOCIAL HISTORY: No tobacco, no alcohol. No illicit drugs. FAMILY HISTORY Noncontributory. REVIEW OF SYSTEMS Review of systems unable to obtain. OBJECTIVE: Vital Signs Date Time Temp Pulse Resp B/P Pulse Ox O2 Delivery O2 Flow Rate FiO2 04/08/16 08:01 93 Nasal Cannula 4.00 04/08/16 08:00 97.8 102 22 96/53 95 04/08/16 06:00 112 04/08/16 04:00 98.0 126 16 116/61 100 04/08/16 04:00 126 04/08/16 02:00 101 04/08/16 00:00 104 04/08/16 00:00 96.7 104 24 105/58 100 04/07/16 22:00 109 04/07/16 20:30 96 21 04/07/16 20:00 104 04/07/16 20:00 98.1 104 25 101/55 98 04/07/16 18:00 104 04/07/16 16:00 99.0 109 20 107/58 100 04/07/16 16:00 109 04/07/16 14:00 115 04/07/16 04/07/16 04/08/16 15:00 23:00 07:00 Intake Total 956 ml 880 ml 51 ml Output Total 350 ml 450 ml Balance 606 ml 430 ml 51 ml Intake Oral 240 ml 150 ml IV Total 716 ml 730 ml 51 ml Output Urine Total 350 ml 450 ml # Bowel Movements 1 Laboratory Tests Test 04/07/16 04/07/16 04/08/16 04:00 15:40 03:45 White Blood Count 5.9 TH/MM3 7.1 TH/MM3 7.4 TH/MM3 Red Blood Count 2.52 MIL/MM3 3.05 MIL/MM3 2.88 MIL/MM3 Hemoglobin 7.9 GM/DL 9.4 GM/DL 9.2 GM/DL Hematocrit 23.6 % 28.0 % 26.6 % Mean Corpuscular Volume 93.5 FL 91.9 FL 92.1 FL Mean Corpuscular Hemoglobin 31.3 PG 30.7 PG 31.7 PG Mean Corpuscular Hemoglobin 33.4 % 33.4 % 34.5 % Concent Red Cell Distribution Width 14.5 % 15.3 % 15.2 % Platelet Count 173 TH/MM3 185 TH/MM3 177 TH/MM3 Mean Platelet Volume 9.2 FL 9.5 FL 9.6 FL Neutrophils (%) (Auto) % % Lymphocytes (%) (Auto) % % Monocytes (%) (Auto) % % Eosinophils (%) (Auto) % % Basophils (%) (Auto) % % Neutrophils # (Auto) TH/MM3 TH/MM3 Lymphocytes # (Auto) TH/MM3 TH/MM3 Monocytes # (Auto) TH/MM3 TH/MM3 Eosinophils # (Auto) TH/MM3 TH/MM3 Basophils # (Auto) TH/MM3 TH/MM3 CBC Comment AUTO DIFF AUTO DIFF Differential Total Cells 100 100 Counted Neutrophils % (Manual) 75 % 61 % Band Neutrophils % 20 % 34 % Lymphocytes % 1 % 3 % Monocytes % 4 % 2 % Neutrophils # (Manual) 5.6 TH/MM3 7.0 TH/MM3 Differential Comment FINAL DIFF FINAL DIFF MANUAL MANUAL Platelet Estimate NORMAL NORMAL Platelet Morphology Comment NORMAL NORMAL Ovalocytes 1+ 1+ Laboratory Tests Test 04/07/16 04/07/16 04/08/16 04:00 15:40 03:45 Sodium Level 146 MEQ/L 145 MEQ/L Potassium Level 4.1 MEQ/L 3.3 MEQ/L Chloride Level 111 MEQ/L 111 MEQ/L Carbon Dioxide Level 25.4 MEQ/L 25.9 MEQ/L Anion Gap 10 MEQ/L 8 MEQ/L Blood Urea Nitrogen 36 MG/DL 29 MG/DL Creatinine 1.06 MG/DL 0.85 MG/DL Estimat Glomerular Filtration 66 ML/MIN 85 ML/MIN Rate Random Glucose 208 MG/DL 31 MG/DL Calcium Level 7.3 MG/DL 7.8 MG/DL Protein Corrected Calcium 8.6 MG/DL Total Protein 4.8 GM/DL 5.2 GM/DL Random Cortisol 46.5 MCG/DL Total Bilirubin 0.4 MG/DL Aspartate Amino Transf 99 U/L (AST/SGOT) Alanine Aminotransferase 32 U/L (ALT/SGPT) Alkaline Phosphatase 71 U/L Albumin 2.0 GM/DL Microbiology Date/Time Procedure Status Source Growth 04/05/16 19:15 Aerobic Blood Culture - Preliminary Resulted Blood Peripheral Staph Sp Coagulase Negative 04/05/16 19:15 Anaerobic Blood Culture - Preliminary Resulted Blood Peripheral NO GROWTH IN 1 DAY 04/05/16 19:30 Aerobic Blood Culture - Preliminary Resulted Blood Peripheral NO GROWTH IN 3 DAYS 04/05/16 19:30 Anaerobic Blood Culture - Preliminary Resulted Blood Peripheral NO GROWTH IN 3 DAYS PHYSICAL EXAMINATION: IN GENERAL: This is a slender male who appears well-nourished. He is in no acute distress. HEAD, EYES, EARS, NOSE, AND THROAT: Head is atraumatic. Extraocular movements grossly intact, pupils reactive to light without icterus. Oropharynx, partially edentulous with several missing teeth at the anterior aspect of the upper jaw. NECK: Supple. No adenopathy. LUNGS: Has rhonchi at both bases. HEART: Tachycardiac. Normal S1-S2. ABDOMEN: Bowel sounds present, soft, no tenderness appreciated. EXTREMITIES: No clubbing or cyanosis or edema. SKIN: No rash. NEUROLOGIC: Patient appears alert. Nonfocal. PSYCHIATRIC: The patient calm and cooperative and responsive. IMPRESSION Sepsis. Aspiration pneumonia. Positive blood culture with staph coagulase negative in 03/25 bottles suggesting contamination. STEMI RECOMMENDATIONS: 1. Continue Levaquin 2. Monitor temperature and white blood cell count and followup chest x-ray. 3. Monitor clinical status. Ottoniel Dominique MD Apr 08, 2016 13:14
--- NOTE | 2016-04-08 13:21 | HHI.CCPN ---
Subjective Remarks/Hospital Course 04/06: 89 y/o fragile, elderly man developed worsening SOB. In ED EKG showed possible STEMI. Alert called and PCI LAD performed. He was febrile to 103 at scene and has leukocytosis on arrival. CXR with khadijah lower lobe infiltrates. Remains hypoxemic requiring NRBM to maintain saturation > 90%. Antibiotic load in ED. Many allergies. Diabetes poorly controlled. 04/07: Sitting up in bed on 4 L nasal cannula. Does not appear to be any acute distress. On Levophed 1 david per minute currently. Passed swallow eval. 1 unit PRBCs ordered this morning for hemoglobin 7.9 04/08: Fell out of bed last night. Head CT negative for bleed. Was hypoglycemic with finger stick glucose in the 30s for which she received D50. This morning he is drowsy but easily arousable. Levemir held this morning. Has remained off Levophed since yesterday. Objective Vital Signs Date Time Temp Pulse Resp B/P Pulse Ox O2 Delivery O2 Flow Rate FiO2 04/08/16 08:01 93 Nasal Cannula 4.00 04/08/16 08:00 97.8 102 22 96/53 04/07/16 20:30 21 Intake and Output 04/07/16 04/07/16 04/08/16 08:00 16:00 00:00 Intake Total 855 ml 956 ml 880 ml Output Total 550 ml 350 ml 450 ml Balance 305 ml 606 ml 430 ml Result Diagram: 04/08/16 0345 04/08/16 0345 Other Results Laboratory Tests Test 04/07/16 04/07/16 04/08/16 14:00 15:40 03:45 Blood Gas Puncture Site RT RADIAL Blood Gas Patient Temperature 98.6 Blood Gas HCO3 20 mmol/L Blood Gas Base Excess -3.5 mmol/L Blood Gas Oxygen Saturation 92 % Arterial Blood pH 7.44 Arterial Blood Partial 30 mmHg Pressure CO2 Arterial Blood Partial 79 mmHg Pressure O2 Arterial Blood Oxygen Content 12.0 Vol % Arterial Blood 0.9 % Carboxyhemoglobin Arterial Blood Methemoglobin 0.8 % Blood Gas Hemoglobin 9.1 G/DL Oxygen Delivery Device NASAL CANNULA Blood Gas Liter Flow 4 L/M White Blood Count 7.1 TH/MM3 7.4 TH/MM3 Red Blood Count 3.05 MIL/MM3 2.88 MIL/MM3 Hemoglobin 9.4 GM/DL 9.2 GM/DL Hematocrit 28.0 % 26.6 % Mean Corpuscular Volume 91.9 FL 92.1 FL Mean Corpuscular Hemoglobin 30.7 PG 31.7 PG Mean Corpuscular Hemoglobin 33.4 % 34.5 % Concent Red Cell Distribution Width 15.3 % 15.2 % Platelet Count 185 TH/MM3 177 TH/MM3 Mean Platelet Volume 9.5 FL 9.6 FL Random Cortisol 46.5 MCG/DL Neutrophils (%) (Auto) % Lymphocytes (%) (Auto) % Monocytes (%) (Auto) % Eosinophils (%) (Auto) % Basophils (%) (Auto) % Neutrophils # (Auto) TH/MM3 Lymphocytes # (Auto) TH/MM3 Monocytes # (Auto) TH/MM3 Eosinophils # (Auto) TH/MM3 Basophils # (Auto) TH/MM3 CBC Comment AUTO DIFF Differential Total Cells 100 Counted Neutrophils % (Manual) 61 % Band Neutrophils % 34 % Lymphocytes % 3 % Monocytes % 2 % Neutrophils # (Manual) 7.0 TH/MM3 Differential Comment FINAL DIFF MANUAL Platelet Estimate NORMAL Platelet Morphology Comment NORMAL Ovalocytes 1+ Sodium Level 145 MEQ/L Potassium Level 3.3 MEQ/L Chloride Level 111 MEQ/L Carbon Dioxide Level 25.9 MEQ/L Anion Gap 8 MEQ/L Blood Urea Nitrogen 29 MG/DL Creatinine 0.85 MG/DL Estimat Glomerular Filtration 85 ML/MIN Rate Random Glucose 31 MG/DL Calcium Level 7.8 MG/DL Total Bilirubin 0.4 MG/DL Aspartate Amino Transf 99 U/L (AST/SGOT) Alanine Aminotransferase 32 U/L (ALT/SGPT) Alkaline Phosphatase 71 U/L Total Protein 5.2 GM/DL Albumin 2.0 GM/DL Imaging Last Impressions Chest X-Ray 04/06/16 0000 Signed Impressions: Service Date/Time: Wednesday, April 06, 2016 15:00 - CONCLUSION: 1. Line in good position. 2. Bibasilar parenchymal changes. These have progressed slightly in the interval. Khris Clemens MD FACR Objective Remarks GEN: Frail, elderly man Head: Atraumatic, normal. Neck: Chronic stiffness. Airway widely patent. Lungs: Good air entry bilaterally, bibasilar crackles Chest: Markedly increased AP diameter. Heart: NL S1S2, no m,r. Neck veins flat when supine. Abdomen: Soft, no guarding, nontender. BS active. Extremities: Chronically edematous lower legs with anasarca. Well perfused. Neuro: Awake and alert, Moves 4 limbs spontaneously. Protects airway, handles oral secretions. A/P Problem List: (1) STEMI (ST elevation myocardial infarction) ICD Code: I21.3 Status: Acute (2) Acute on chronic respiratory failure with hypoxemia ICD Code: J96.21 Status: Acute (3) Pneumonia ICD Code: J18.9 Status: Acute (4) Diabetes mellitus type 2, uncontrolled ICD Code: E11.65 Status: Acute Assessment and Plan Plan: CV: DAPT per Cardiology Service. IV hydration. Off levophed. RESP:` Bronchodilators. supplemental O2. Patient evaluated by pulmonary and was started on Solu-Medrol 40 mg IV every 8 hourly, will decrease to 40 mg IV daily. Per patient's daughter he does not have COPD NEURO: Off sedation. RENAL: Maint IV fluid. Strict intake output, monitor and replete electrolytes , follow BUN/creatinine : Valenzuela to CBD. Start scheduled diuretics when off levophed. KVO IV fluids. GI: Passed swallow eval, by mouth diet as tolerated. Concern regarding recurrent aspiration. HEME: Follow Hgb, wbcs. ID: Aztreonam stopped by ID on 04/07, remains on levaquin per ID ENDO: Started levemir and SSI q6h coverage on 04/07. Stopped Insulin gtt on . Levemir held morning of 04/08 in view of hypoglycemia and dose decreased to 10 units daily. PX: Pepcid, lovenox 30mg daily Overall impression: This fragile, elderly gentleman is critically ill with hypoxemic respiratory failure and an acute STEMI. PCI tolerated and now in ICU with marginal gas exchange. He has extensive anasarca and appears chronically debilitated. Nice result from coronary PCI but respiratory sepsis makes him high risk for continued deterioration. Discussed current clinical status and plan of care with patient's daughter who is a hospitalist in detail on 04/08 and she voiced understanding and was agreeable with plan of care. Problem Qualifiers (1) STEMI (ST elevation myocardial infarction): Qualified Code: I21.02 - ST elevation myocardial infarction involving left anterior descending (LAD) coronary artery (2) Pneumonia: David Reich MD Apr 08, 2016 13:21
[2016-04-08] MEDS: INSULIN DETEMIR 100 UNITS/ML VIAL SQ SCH (16:43)
[2016-04-08] MEDS: ATORVASTATIN 40 MG TAB PO SCH (22:05)
--- NOTE | 2016-04-08 23:22 | HHI.PR ---
Subjective Remarks Alert and on O2 at 3 L. Fell out of bed last PM. Sugars were low. Output was good. Objective Vital Signs Date Time Temp Pulse Resp B/P Pulse Ox O2 Delivery O2 Flow Rate FiO2 04/08/16 20:00 105 04/08/16 20:00 97.5 105 30 106/64 96 04/08/16 16:00 97.8 114 26 105/64 93 04/08/16 12:00 97.8 102 25 113/58 97 04/08/16 08:01 93 Nasal Cannula 4.00 04/08/16 08:00 97.8 102 22 96/53 95 04/08/16 06:00 112 04/08/16 04:00 98.0 126 16 116/61 100 04/08/16 04:00 126 04/08/16 02:00 101 04/08/16 00:00 104 04/08/16 00:00 96.7 104 24 105/58 100 I/O 04/07/16 04/07/16 04/07/16 04/08/16 04/08/16 04/08/16 07:00 15:00 23:00 07:00 15:00 23:00 Intake Total 855 ml 956 ml 880 ml 51 ml 288 ml Output Total 550 ml 350 ml 450 ml 350 ml Balance 305 ml 606 ml 430 ml 51 ml -62 ml Intake Oral 240 ml 150 ml 240 ml IV Total 855 ml 716 ml 730 ml 51 ml 48 ml Output Urine Total 550 ml 350 ml 450 ml 350 ml # Bowel Movements 1 Result Diagram: 04/08/16 0345 04/08/16 0345 Objective Remarks GENERAL: This is an emaciated looking elderly man who is in bed, pale and mildly dyspneic at rest. HEENT: Head normocephalic. Pupils reactive. Tongue is moist and throat injected. Ears inflammation. NECK: Supple. No bruits, no thyroid enlargement. CHEST: Equal movements with wheezes bilaterally, prolonged expirations, crackles at the lung bases. HEART: The heart sounds are irregular S1 and S2. No murmur. ABDOMEN: Soft, protuberant. No masses, no organomegaly or tenderness. Bowel sounds are active EXTREMITIES: Muscle wasting and diminished pulses. Reflexes 1+. The patient does move his legs but weak.Mild edema SKIN: Revealed no definite lesions. IMAGING STUDIES Chest x-ray demonstrated bibasilar pulmonary infiltrates and small effusions. Assessment and Plan Assessment and Plan IMPRESSION 1. ST elevation myocardial infarction 2. Chronic respiratory failure. 3. Basilar pneumonia and hypoxemia. 4. Chronic obstructive pulmonary disease 5. Diabetes mellitus type 2. Plan : 1. Continue antibiotics. 2. IV fluids and monitor Blood sugar. 3. Nebs tid , duoneb. 4. CBC,BMP in am. 5. PT evaluation. 6. Taper solumedrol to 40 mg daily X 3. Gabriel Campos MD Apr 08, 2016 23:22
[2016-04-09] VITALS (15 sets, daily range): BP systolic 107–135; BP diastolic 52–68; PULSE 99–128; RESP 20–31; TEMP 97.5–97.9; O2SAT 90–99
[2016-04-09] MEDS: CHLORHEXIDINE GLUCONATE 2 % 1 PACK (2 CLOTHS)(taper/protocol) TOP SCH (04:00)
[2016-04-09] MEDS: INSULIN ASPART SUPPLEMENTAL SCALE SQ SCH ×6 (04:00→20:09)
[2016-04-09] MEDS: LEVOFLOXACIN 250 MG PREMIX INJ 50 ML IV SCH (05:43)
[2016-04-09] MEDS: FAMOTIDINE 20 MG/2 ML VIAL IV PUSH SCH ×2 (05:44→18:17)
[2016-04-09 06:19] LABS: BACTERIA, URINE OCC /hpf; BLOOD, URINE LARGE (NEG); GLUCOSE,URINE NEG (NEG); KETONE, URINE NEG (NEG); MUCUS URINE FEW /lpf (OCC); NITRITE,URINE NEG (NEG); URINE COLOR YELLOW (YELLW/STRAW)
[2016-04-09 06:20] LABS: COMMENT (UR) CATH-CULTURE IND; CULTURE IF INDICATED CATH CULTURE IND
[2016-04-09] MEDS ORDERED: GLUCAGON 1 MG/ML VIAL IM/SQ PRN (06:45)
--- NOTE | 2016-04-09 08:26 | PD.CARD.PN ---
Subjective Subjective Remarks Denies pain, dyspnea. Objective Medications Item Value Date Time Clopidogrel 75 mg 04/07/16 1100 Bisulfate DAILY/PO 04/08/16 0900 (Plavix) Atorvastatin 40 mg 04/06/16 2100 Calcium HS/PO 04/08/16 2205 (Lipitor) Aspirin 325 mg 04/06/16 0900 (Aspirin) DAILY/PO 04/08/16 0901 Vital Signs / I&O Vital Signs Date Time Temp Pulse Resp B/P Pulse Ox O2 Delivery O2 Flow Rate FiO2 04/09/16 08:15 97.8 104 20 135/68 99 04/09/16 06:00 105 04/09/16 04:00 112 04/09/16 04:00 97.5 112 26 119/52 93 04/09/16 02:00 118 04/09/16 00:00 97.5 115 31 126/61 92 04/09/16 00:00 115 04/08/16 22:00 115 04/08/16 20:00 105 04/08/16 20:00 97.5 105 30 106/64 96 04/08/16 16:00 97.8 114 26 105/64 93 04/08/16 12:00 97.8 102 25 113/58 97 I/O 04/08/16 04/08/16 04/08/16 04/09/16 04/09/16 04/09/16 07:00 15:00 23:00 07:00 15:00 23:00 Intake Total 51 ml 288 ml 160 ml 93 ml Output Total 350 ml 370 ml 300 ml Balance 51 ml -62 ml -210 ml -207 ml Intake Oral 240 ml 120 ml 60 ml IV Total 51 ml 48 ml 40 ml 33 ml Output Urine Total 350 ml 370 ml 300 ml Physical Exam GENERAL: Well developed, very thin. No acute distress. HEENT: Jugular venous pressure is normal. CHEST: Lungs clear to auscultation anteriorly. CARDIAC: Regular rate and rhythm without S3, S4. I/ AKHIL RUSB. ABDOMEN: Soft, nontender, no hepatosplenomegaly. Bowel sounds present. EXTREMITIES: No clubbing, cyanosis, or edema. Laboratory Laboratory Tests Test 04/09/16 02:30 Urine Color YELLOW Urine Turbidity HAZY Urine pH 5.0 Urine Specific [place] 1.022 Urine Protein 30 mg/dL Urine Glucose (UA) NEG mg/dL Urine Ketones NEG mg/dL Urine Occult Blood LARGE Urine Nitrite NEG Urine Bilirubin NEG Urine Urobilinogen LESS THAN 2.0 MG/DL Urine Leukocyte Esterase SMALL Urine RBC 108 /hpf Urine WBC 5 /hpf Urine Bacteria OCC /hpf Urine Mucus FEW /lpf Microscopic Urinalysis Comment CATH-CULTURE IND Assessment and Plan Problem List: (1) STEMI (ST elevation myocardial infarction) Assessment and Plan: Status post anterior STEMI, PTCA of prox and mid LAD, unsuccessful stenting. Stable overnight. Hemodynamically stable, slightly tachycardic. EF by echo close to 45%. No evidence for CHF/arrhythmias so far. REC continue aspirin, Plavix cont statin will try to start low dose beta ry OK to transfer out of ICU from cardiac standpoint Code Status full code Discussed Condition With patient Problem Qualifiers (1) STEMI (ST elevation myocardial infarction): Qualified Code: I21.02 - ST elevation myocardial infarction involving left anterior descending (LAD) coronary artery Naun Ferrari MD Apr 09, 2016 08:26
[2016-04-09] MEDS: ASPIRIN 325 MG TAB PO SCH (08:43)
[2016-04-09] MEDS: DOCUSATE SODIUM 100 MG/10 ML UDC PO SCH ×3 (08:43→21:00)
[2016-04-09] MEDS: CLOPIDOGREL 75 MG TAB PO SCH (08:43)
[2016-04-09] MEDS: INSULIN DETEMIR 100 UNITS/ML VIAL SQ SCH (09:00)
[2016-04-09] MEDS ORDERED: methylPREDNISolone SOD SUCC 40 MG/1 ML VIAL IV SCH ×2 (09:00→22:00)
[2016-04-09] MEDS ORDERED: POTASSIUM CL 40 MEQ/30 ML LIQ UDC PO ONE (10:30)
[2016-04-09] MEDS: RESP: ALBUTEROL 2.5 MG/IPRATROPIUM 0.5 MG NEB (SCH) NEB ×3 (10:35→19:34)
[2016-04-09] MEDS: SODIUM CHLORIDE 0.9% FLUSH 5 ML FLUSH IVF SCH ×3 (10:59→20:02)
[2016-04-09] MEDS: CARVEDILOL 3.125 MG TAB PO SCH ×3 (11:00→21:10)
--- NOTE | 2016-04-09 12:21 | HHI.IDPN ---
Note Infectious Disease Note Patient is awake and alert. Awake. Talking a lot. ? confused. difficult to understand. Speaking mostly [place] language and some Polish. Denies pain. Afebrile. This is a 89-year-old white male who presented to emergency department on 04/05/2016, the patient was diagnosed with ST elevation myocardial infarction and fever. PAST MEDICAL HISTORY 1. Hypercholesteremia 2. Diabetes mellitus 3. Gastroesophageal reflux disease. 4. Laminectomy L4/L5. ALLERGIES PENICILLIN AMOXICILLIN FLAGYL MEDICATIONS: Current Medications Medications (Trade) Dose Ordered Sig/Jodie Route PRN Reason Start Time Stop Time Status Last Admin Dose Admin IV Flush (NS Flush) 2 ml UNSCH PRN IVF FLUSH AFTER USING IV ACCESS 04/05/16 22:00 04/07/16 09:02 IV Flush (NS Flush) 2 ml BID IVF 04/06/16 09:00 04/09/16 10:59 Acetaminophen (Tylenol) 325 mg Q4H PRN PO PAIN SCALE 1 TO 5 04/05/16 22:00 Morphine Sulfate (Morphine Inj) 2 mg Q30M PRN IV PUSH PAIN GREATER THAN 5. NOTIFY MD 04/05/16 22:00 04/06/16 20:45 Aspirin (Aspirin) 325 mg DAILY PO 04/06/16 09:00 04/09/16 08:43 Atropine Sulfate (Atropine Inj) 0.5 mg UNSCH PRN IV VAGAL REPONSE 04/05/16 22:00 Ondansetron HCl (Zofran Inj) 4 mg Q4H PRN IV NAUSEA 04/05/16 22:00 Atorvastatin Calcium (Lipitor) 40 mg HS PO 04/06/16 21:00 04/08/16 22:05 Miscellaneous Information Patient in critical care unit? Ass... [id number] XX 04/05/16 23:15 04/06/16 07:42 Chlorhexidine Gluconate (Chlorhexidine 2% Cloth) 3 pack DAILY@04 TOP 04/06/16 04:00 04/10/16 04:01 04/09/16 04:00 Chlorhexidine Gluconate 3 pack 3 pack UNSCH PRN TOP HYGIENIC CARE 04/05/16 23:15 04/10/16 23:12 Norepinephrine Bitartrate (Levophed-Dextrose Drip) 250 ml @ 0 mls/hr TITRATE IV 04/06/16 01:45 04/06/16 20:33 Famotidine 10 mg 10 mg Q12H IV PUSH 04/06/16 18:00 04/09/16 05:44 Levofloxacin/ Dextrose (Levaquin 250 Mg Premix Inj) 50 ml @ 50 mls/hr Q24H IV 04/07/16 05:00 04/09/16 05:43 Docusate Sodium (Colace Liq) 100 mg Q12HR PO 04/07/16 21:00 04/09/16 08:43 Clopidogrel Bisulfate (Plavix) 75 mg DAILY PO 04/07/16 11:00 04/09/16 08:43 Insulin Detemir (Levemir Inj) 10 units DAILY SQ 04/08/16 09:00 04/08/16 16:43 Methylprednisolone Sodium Succinate (SoluMEDROL INJ) 40 mg DAILY IV 04/09/16 09:00 04/09/16 09:00 Dextrose (D50w (Vial) Inj) 25 ml UNSCH PRN IV HYPOGLYCEMIA-SEE COMMENTS 04/09/16 06:45 Glucagon (Glucagon Inj) 1 mg UNSCH PRN IM/SQ HYPOGLYCEMIA-SEE COMMENTS 04/09/16 06:45 Carvedilol (Coreg) 3.125 mg Q12HR PO 04/09/16 09:00 04/09/16 11:00 SOCIAL HISTORY: No tobacco, no alcohol. No illicit drugs. FAMILY HISTORY Noncontributory. REVIEW OF SYSTEMS Review of systems unable to obtain. OBJECTIVE: Vital Signs Date Time Temp Pulse Resp B/P Pulse Ox O2 Delivery O2 Flow Rate FiO2 04/09/16 10:35 96 Nasal Cannula 2.00 04/09/16 10:00 112 04/09/16 08:15 97.8 104 20 135/68 99 04/09/16 08:00 104 04/09/16 06:00 105 04/09/16 04:00 112 04/09/16 04:00 97.5 112 26 119/52 93 04/09/16 02:00 118 04/09/16 00:00 97.5 115 31 126/61 92 04/09/16 00:00 115 04/08/16 22:00 115 04/08/16 20:00 105 04/08/16 20:00 97.5 105 30 106/64 96 04/08/16 16:00 97.8 114 26 105/64 93 04/08/16 04/08/16 04/09/16 15:00 23:00 07:00 Intake Total 288 ml 160 ml 93 ml Output Total 350 ml 370 ml 300 ml Balance -62 ml -210 ml -207 ml Intake Oral 240 ml 120 ml 60 ml IV Total 48 ml 40 ml 33 ml Output Urine Total 350 ml 370 ml 300 ml Laboratory Tests Test 04/07/16 04/08/16 15:40 03:45 White Blood Count 7.1 TH/MM3 7.4 TH/MM3 Red Blood Count 3.05 MIL/MM3 2.88 MIL/MM3 Hemoglobin 9.4 GM/DL 9.2 GM/DL Hematocrit 28.0 % 26.6 % Mean Corpuscular Volume 91.9 FL 92.1 FL Mean Corpuscular Hemoglobin 30.7 PG 31.7 PG Mean Corpuscular Hemoglobin 33.4 % 34.5 % Concent Red Cell Distribution Width 15.3 % 15.2 % Platelet Count 185 TH/MM3 177 TH/MM3 Mean Platelet Volume 9.5 FL 9.6 FL Neutrophils (%) (Auto) % Lymphocytes (%) (Auto) % Monocytes (%) (Auto) % Eosinophils (%) (Auto) % Basophils (%) (Auto) % Neutrophils # (Auto) TH/MM3 Lymphocytes # (Auto) TH/MM3 Monocytes # (Auto) TH/MM3 Eosinophils # (Auto) TH/MM3 Basophils # (Auto) TH/MM3 CBC Comment AUTO DIFF Differential Total Cells 100 Counted Neutrophils % (Manual) 61 % Band Neutrophils % 34 % Lymphocytes % 3 % Monocytes % 2 % Neutrophils # (Manual) 7.0 TH/MM3 Differential Comment FINAL DIFF MANUAL Platelet Estimate NORMAL Platelet Morphology Comment NORMAL Ovalocytes 1+ Laboratory Tests Test 04/07/16 04/08/16 15:40 03:45 Random Cortisol 46.5 MCG/DL Sodium Level 145 MEQ/L Potassium Level 3.3 MEQ/L Chloride Level 111 MEQ/L Carbon Dioxide Level 25.9 MEQ/L Anion Gap 8 MEQ/L Blood Urea Nitrogen 29 MG/DL Creatinine 0.85 MG/DL Estimat Glomerular Filtration 85 ML/MIN Rate Random Glucose 31 MG/DL Calcium Level 7.8 MG/DL Total Bilirubin 0.4 MG/DL Aspartate Amino Transf 99 U/L (AST/SGOT) Alanine Aminotransferase 32 U/L (ALT/SGPT) Alkaline Phosphatase 71 U/L Total Protein 5.2 GM/DL Albumin 2.0 GM/DL Microbiology Date/Time Procedure Status Source Growth 04/09/16 02:30 Urine Culture Received Urine Catheterized Urine Pending Microbiology Date/Time Procedure Status Source Growth 04/05/16 19:15 Aerobic Blood Culture - Preliminary Resulted Blood Peripheral Staph Sp Coagulase Negative 04/05/16 19:15 Anaerobic Blood Culture - Preliminary Resulted Blood Peripheral NO GROWTH IN 1 DAY 04/05/16 19:30 Aerobic Blood Culture - Preliminary Resulted Blood Peripheral NO GROWTH IN 3 DAYS 04/05/16 19:30 Anaerobic Blood Culture - Preliminary Resulted Blood Peripheral NO GROWTH IN 3 DAYS IMAGING: Chest X-Ray 04/08/16 0600 Signed Impressions: Service Date/Time: Friday, April 08, 2016 04:51 - CONCLUSION: Stable chest appearance. Fabien Randall MD Head CT 04/08/16 0330 Signed Impressions: Service Date/Time: Friday, April 08, 2016 04:46 - CONCLUSION: No evidence of acute intracranial findings Fabien Randall MD Chest CT 04/07/16 0000 Signed Impressions: Service Date/Time: Thursday, April 07, 2016 15:15 - CONCLUSION: 1. Bilateral lower lobe atelectasis versus pneumonia. 2. Moderate bilateral effusions Lui Guerra MD PHYSICAL EXAMINATION: IN GENERAL: This is a slender male who appears well-nourished. He is in no acute distress. HEAD, EYES, EARS, NOSE, AND THROAT: Head is atraumatic. Extraocular movements grossly intact, pupils reactive to light without icterus. Oropharynx, partially edentulous with several missing teeth at the anterior aspect of the upper jaw. NECK: Supple. No adenopathy. LUNGS: Has rhonchi at both bases. HEART: Tachycardiac. Normal S1-S2. ABDOMEN: Bowel sounds present, soft, no tenderness appreciated. EXTREMITIES: No clubbing or cyanosis or edema. SKIN: No rash. NEUROLOGIC: Patient appears alert. Nonfocal. PSYCHIATRIC: The patient calm and cooperative and responsive. IMPRESSION Sepsis. Aspiration pneumonia. Positive blood culture with staph coagulase negative in 03/25 bottles suggesting contamination. STEMI Appears stable. RECOMMENDATIONS: 1. Continue Levaquin 2. Monitor temperature and white blood cell count. 3. Monitor clinical status. Dontfraid,Ottoniel F MD Apr 09, 2016 12:21
--- NOTE | 2016-04-09 15:32 | HHI.HCPN ---
Reason for visit a. To assist with evaluation and management of symptoms including: chest pain. b. To assist medical decision maker(s) with: better understanding of current medical conditions; weighing benefits/burdens of medical treatment options; making medical treatment decisions. . (JARRELL SIFUENTES) Subjective/Interval History Patient seen and examined in ICU. Nurse at bedside. is not present. Patient is awake and alert, he is being fed lunch and drinking juice. He does have some coughing noted after drinking. He is verbal, difficult to understand all he is saying. Afebrile. Vital signs stable. Oxygen via NC 2 LPM. He denies pain or shortness of breath. . Family/friend interactions No family at bedside. Palliative care phone number previously provided. . (JARRELL SIFUENTES) Advance Directives Living Will: Never completed Health Care Surrogate: Never completed Durable Power of Assorter: Never completed (JARRELL SIFUENTES) Advance Directive Specifics Health Care Surrogate(s): No known written advance directives. According to [place] statutes health care proxy decision-making falls to his spouse. . Significant change in goals: FULL CODE. Family desires continued aggressive care. . (JARRELL SIFUENTES) Objective Vital Signs Date Time Temp Pulse Resp B/P Pulse Ox O2 Delivery O2 Flow Rate FiO2 04/09/16 14:15 101 04/09/16 12:00 99 04/09/16 12:00 97.8 99 25 109/68 96 04/09/16 10:35 96 Nasal Cannula 2.00 04/09/16 10:00 112 04/09/16 08:15 97.8 104 20 135/68 99 04/09/16 08:00 104 04/09/16 06:00 105 04/09/16 04:00 112 04/09/16 04:00 97.5 112 26 119/52 93 04/09/16 02:00 118 04/09/16 00:00 97.5 115 31 126/61 92 04/09/16 00:00 115 04/08/16 22:00 115 04/08/16 20:00 105 04/08/16 20:00 97.5 105 30 106/64 96 04/08/16 16:00 97.8 114 26 105/64 93 Intake & Output 04/09/16 04/09/16 07:00 19:00 Intake Total 253 ml 363 ml Output Total 670 ml 275 ml Balance -417 ml 88 ml Intake Oral 180 ml 300 ml IV Total 73 ml 63 ml Output Urine Total 670 ml 275 ml Physical Exam CONSTITUTIONAL/GENERAL: This is a cachectic, critically ill patient, in no apparent distress. TUBES/LINES/DRAINS: right IJ central line, PIV right, Valenzuela, SCDs. SKIN: No jaundice, rashes, or lesions. Ecchymoses on upper extremities. No wounds seen anteriorly. Skin temperature appropriate. Not diaphoretic. ENT: Hard of hearing. Nose without bleeding or purulent drainage. Poor dentition. CARDIOVASCULAR: intermittent tachycardia. RESPIRATORY/CHEST: Symmetric, unlabored respirations. Few scattered faint crackles. GASTROINTESTINAL: Abdomen soft, non-tender, nondistended. No guarding. Bowel sounds present. GENITOURINARY: Without palpable bladder distension. Valenzuela catheter in place. MUSCULOSKELETAL: Extremities without clubbing, cyanosis, or edema. No mottling or clubbing. NEUROLOGICAL: Awake and alert. Follows commands. Moves all extremities. PSYCHIATRIC: No obvious anxiety/depression. no apparent hallucinations or other psychotic thought process. . (JARRELL SIFUENTESP-Gi) Diagnostic Tests Laboratory Laboratory Tests Test 04/07/16 04/07/16 04/07/16 04/07/16 04:00 06:25 09:25 14:00 White Blood Count 5.9 TH/MM3 (4.0-11.0) Red Blood Count 2.52 MIL/MM3 (4.50-5.90) Hemoglobin 7.9 GM/DL (13.0-17.0) Hematocrit 23.6 % (39.0-51.0) Mean Corpuscular Volume 93.5 FL (80.0-100.0) Mean Corpuscular Hemoglobin 31.3 PG (27.0-34.0) Mean Corpuscular Hemoglobin 33.4 % Concent (32.0-36.0) Red Cell Distribution Width 14.5 % (11.6-17.2) Platelet Count 173 TH/MM3 (150-450) Mean Platelet Volume 9.2 FL (7.0-11.0) Neutrophils (%) (Auto) % (16.0-70.0) Lymphocytes (%) (Auto) % (9.0-44.0) Monocytes (%) (Auto) % (0.0-8.0) Eosinophils (%) (Auto) % (0.0-4.0) Basophils (%) (Auto) % (0.0-2.0) Neutrophils # (Auto) TH/MM3 (1.8-7.7) Lymphocytes # (Auto) TH/MM3 (1.0-4.8) Monocytes # (Auto) TH/MM3 (0-0.9) Eosinophils # (Auto) TH/MM3 (0-0.4) Basophils # (Auto) TH/MM3 (0-0.2) CBC Comment AUTO DIFF Differential Total Cells 100 Counted Neutrophils % (Manual) 75 % (16-70) Band Neutrophils % 20 % (0-6) Lymphocytes % 1 % (9-44) Monocytes % 4 % (0-8) Neutrophils # (Manual) 5.6 TH/MM3 (1.8-7.7) Differential Comment FINAL DIFF MANUAL Platelet Estimate NORMAL (NORMAL) Platelet Morphology Comment NORMAL (NORMAL) Ovalocytes 1+ (NORMAL) Sodium Level 146 MEQ/L (136-145) Potassium Level 4.1 MEQ/L (3.5-5.1) Chloride Level 111 MEQ/L (98-107) Carbon Dioxide Level 25.4 MEQ/L (21.0-32.0) Anion Gap 10 MEQ/L (5-15) Blood Urea Nitrogen 36 MG/DL (7-18) Creatinine 1.06 MG/DL (0.60-1.30) Estimat Glomerular Filtration 66 ML/MIN (>89) Rate Random Glucose 208 MG/DL (74-106) Calcium Level 7.3 MG/DL (8.5-10.1) Protein Corrected Calcium 8.6 MG/DL (8.5-10.1) Total Protein 4.8 GM/DL (6.4-8.2) Blood Type B NEGATIVE B NEGATIVE Antibody Screen NEGATIVE Crossmatch Leukocyte-Reduced Red Blood Cells Blood Bank Comment Blood Gas Puncture Site RT RADIAL Blood Gas Patient Temperature 98.6 Blood Gas HCO3 20 mmol/L (22-26) Blood Gas Base Excess -3.5 mmol/L (-2-2) Blood Gas Oxygen Saturation 92 % (90-100) Arterial Blood pH 7.44 (7.380-7.420) Arterial Blood Partial 30 mmHg (38-42) Pressure CO2 Arterial Blood Partial 79 mmHg Pressure O2 (61-120) Arterial Blood Oxygen Content 12.0 Vol % (12.0-20.0) Arterial Blood 0.9 % (0-4) Carboxyhemoglobin Arterial Blood Methemoglobin 0.8 % (0-2) Blood Gas Hemoglobin 9.1 G/DL (12.0-16.0) Oxygen Delivery Device NASAL CANNULA Blood Gas Liter Flow 4 L/M Test 04/07/16 04/08/16 04/09/16 15:40 03:45 02:30 White Blood Count 7.1 TH/MM3 7.4 TH/MM3 (4.0-11.0) (4.0-11.0) Red Blood Count 3.05 MIL/MM3 2.88 MIL/MM3 (4.50-5.90) (4.50-5.90) Hemoglobin 9.4 GM/DL 9.2 GM/DL (13.0-17.0) (13.0-17.0) Hematocrit 28.0 % 26.6 % (39.0-51.0) (39.0-51.0) Mean Corpuscular Volume 91.9 FL 92.1 FL (80.0-100.0) (80.0-100.0) Mean Corpuscular Hemoglobin 30.7 PG 31.7 PG (27.0-34.0) (27.0-34.0) Mean Corpuscular Hemoglobin 33.4 % 34.5 % Concent (32.0-36.0) (32.0-36.0) Red Cell Distribution Width 15.3 % 15.2 % (11.6-17.2) (11.6-17.2) Platelet Count 185 TH/MM3 177 TH/MM3 (150-450) (150-450) Mean Platelet Volume 9.5 FL 9.6 FL (7.0-11.0) (7.0-11.0) Random Cortisol 46.5 MCG/DL Neutrophils (%) (Auto) % (16.0-70.0) Lymphocytes (%) (Auto) % (9.0-44.0) Monocytes (%) (Auto) % (0.0-8.0) Eosinophils (%) (Auto) % (0.0-4.0) Basophils (%) (Auto) % (0.0-2.0) Neutrophils # (Auto) TH/MM3 (1.8-7.7) Lymphocytes # (Auto) TH/MM3 (1.0-4.8) Monocytes # (Auto) TH/MM3 (0-0.9) Eosinophils # (Auto) TH/MM3 (0-0.4) Basophils # (Auto) TH/MM3 (0-0.2) CBC Comment AUTO DIFF Differential Total Cells 100 Counted Neutrophils % (Manual) 61 % (16-70) Band Neutrophils % 34 % (0-6) Lymphocytes % 3 % (9-44) Monocytes % 2 % (0-8) Neutrophils # (Manual) 7.0 TH/MM3 (1.8-7.7) Differential Comment FINAL DIFF MANUAL Platelet Estimate NORMAL (NORMAL) Platelet Morphology Comment NORMAL (NORMAL) Ovalocytes 1+ (NORMAL) Sodium Level 145 MEQ/L (136-145) Potassium Level 3.3 MEQ/L (3.5-5.1) Chloride Level 111 MEQ/L (98-107) Carbon Dioxide Level 25.9 MEQ/L (21.0-32.0) Anion Gap 8 MEQ/L (5-15) Blood Urea Nitrogen 29 MG/DL (7-18) Creatinine 0.85 MG/DL (0.60-1.30) Estimat Glomerular Filtration 85 ML/MIN (>89) Rate Random Glucose 31 MG/DL (74-106) Calcium Level 7.8 MG/DL (8.5-10.1) Total Bilirubin 0.4 MG/DL (0.2-1.0) Aspartate Amino Transf 99 U/L (15-37) (AST/SGOT) Alanine Aminotransferase 32 U/L (12-78) (ALT/SGPT) Alkaline Phosphatase 71 U/L (45-117) Total Protein 5.2 GM/DL (6.4-8.2) Albumin 2.0 GM/DL (3.4-5.0) Urine Color YELLOW (YELLW/STRAW) Urine Turbidity HAZY (CLEAR) Urine pH 5.0 (5.0-8.5) Urine Specific [place] 1.022 (1.002-1.035) Urine Protein 30 mg/dL (NEG-TRACE) Urine Glucose (UA) NEG mg/dL (NEG) Urine Ketones NEG mg/dL (NEG) Urine Occult Blood LARGE (NEG) Urine Nitrite NEG (NEG) Urine Bilirubin NEG (NEG) Urine Urobilinogen LESS THAN 2.0 MG/DL (LESS THAN 2.0) Urine Leukocyte Esterase SMALL (NEG) Urine RBC 108 /hpf (0-3) Urine WBC 5 /hpf (0-5) Urine Bacteria OCC /hpf (NONE) Urine Mucus FEW /lpf (OCC) Microscopic Urinalysis Comment CATH-CULTURE IND (JARRELL SIFUENTES) Result Diagram: 04/08/16 0345 04/08/16 0345 Microbiology Microbiology Date/Time Procedure Status Source Growth 04/09/16 02:30 Urine Culture Received Urine Catheterized Urine Pending . Imaging Last Impressions Chest X-Ray 04/08/16 0600 Signed Impressions: Service Date/Time: Friday, April 08, 2016 04:51 - CONCLUSION: Stable chest appearance. Fabien Randall MD Head CT 04/08/16 0330 Signed Impressions: Service Date/Time: Friday, April 08, 2016 04:46 - CONCLUSION: No evidence of acute intracranial findings Fabien Randall MD Chest CT 04/07/16 0000 Signed Impressions: Service Date/Time: Thursday, April 07, 2016 15:15 - CONCLUSION: 1. Bilateral lower lobe atelectasis versus pneumonia. 2. Moderate bilateral effusions Lui Guerra MD . Procedures * 04/06/16 - right IJ central line placed. * 04/05/16 - emergent cardiac cath with angioplasty and unsuccessful stenting of 3 vessel disease. . (JARRELL SIFUENTES) Assessment and Plan Disease Oriented Problem List: (1) STEMI (ST elevation myocardial infarction) Comment: s/p cardiac cath with angioplasty, unsuccessful stenting of 3 vessel disease. . (2) Acute on chronic respiratory failure with hypoxemia (3) Diabetes mellitus type 2, uncontrolled (4) Pneumonia Comment: aspiration pneumonia Symptom Scale: (1) Chest pain 0-10 Scale: 0 (2) Dysphagia 0-10 Scale: 0 Comment: Passed swallow eval, eating small amounts. . Pertinent Non-Medical Issues Psychosocial: . Spiritual: Sikh sonu. Legal: No known written advanced directives. According to [place] statutes, health care proxy decision-making falls to the patient's spouse. Ethical issues impacting care: No known concerns at this time. . Important Contacts * Az Hartley, spouse/HCP: [phone] * Millie Hartley, daughter: [phone] lives in [place], [place] . Prognosis Mr. Hartley is an 89-year-old admitted with STEMI s/p angioplasty and unsuccessful stenting of 3 vessel disease who remains in ICU on pressor support and failed swallow evaluation. He is cachectic with chronic aspiration. He is high risk for further decline. . Code Status: Full Code Plan * No known written advanced directives. According to [place] statutes, health care proxy decision-making falls to the patient's spouse. * FULL CODE * Family desires continued aggressive care. * SYMPTOMS: Dysphagia: passed swallow evaluation, eating small amounts. Chest pain: has resolved. Denies pain today. * Palliative care will continue to follow throughout hospital course to assist with symptom management and further clarification of treatment goals. . (JARRELL SIFUENTES) Attestation To help prompt me to consider important information that might be impacting today's encounter and assessment, information from prior notes written by myself or my colleagues may have been "brought forward" into today's note. My signature on this note, however, is an attestation that I personally performed the exam, history, and/or decision-making noted today, and, unless otherwise indicated, the interactions with patient, family, and staff as well as the review of records all occurred today. I also attest that the listed assessment and stated plan reflect my best clinical judgment today based on the combination of historical information, prior notes, and today's exam/ interactions. When time spent is documented, it refers only to time spent today by the signer, or if indicated, combined time spent today by collaborating physician/nurse practitioner. (JARRELL SIFUENTES) Collaborating MD Comments Chart reviewed. Case discussed with palliative care LIMITED RADIOLOGY TECHNICIAN. Above LIMITED RADIOLOGY TECHNICIAN note reviewed and I concur. . (Toni Cooper MD) JARRELL SIFUENTES Apr 09, 2016 15:32 Toni Cooper MD May 10, 2016 07:58
--- NOTE | 2016-04-09 17:18 | HHI.CCPN ---
Subjective Remarks/Hospital Course 04/06: 89 y/o fragile, elderly man developed worsening SOB. In ED EKG showed possible STEMI. Alert called and PCI LAD performed. He was febrile to 103 at scene and has leukocytosis on arrival. CXR with khadijah lower lobe infiltrates. Remains hypoxemic requiring NRBM to maintain saturation > 90%. Antibiotic load in ED. Many allergies. Diabetes poorly controlled. 04/07: Sitting up in bed on 4 L nasal cannula. Does not appear to be any acute distress. On Levophed 1 david per minute currently. Passed swallow eval. 1 unit PRBCs ordered this morning for hemoglobin 7.9 04/08: Fell out of bed last night. Head CT negative for bleed. Was hypoglycemic with finger stick glucose in the 30s for which she received D50. This morning he is drowsy but easily arousable. Levemir held this morning. Has remained off Levophed since yesterday. 04/09: Hypoglycemic last night. Levemir being discontinued.. Remains off pressors. On nasal cannula. Objective Vital Signs Date Time Temp Pulse Resp B/P Pulse Ox O2 Delivery O2 Flow Rate FiO2 04/09/16 14:15 101 04/09/16 12:00 97.8 25 109/68 96 04/09/16 10:35 Nasal Cannula 2.00 04/07/16 20:30 21 Intake and Output 04/08/16 04/08/16 04/09/16 08:00 16:00 00:00 Intake Total 51 ml 288 ml 160 ml Output Total 350 ml 370 ml Balance 51 ml -62 ml -210 ml Result Diagram: 04/08/16 0345 04/08/16 0345 Imaging Last Impressions Chest X-Ray 04/06/16 0000 Signed Impressions: Service Date/Time: Wednesday, April 06, 2016 15:00 - CONCLUSION: 1. Line in good position. 2. Bibasilar parenchymal changes. These have progressed slightly in the interval. Khris Clemens MD FACR Objective Remarks GEN: Frail, elderly man Head: Atraumatic, normal. Neck: Chronic stiffness. Airway widely patent. Lungs: Good air entry bilaterally, bibasilar crackles Chest: Markedly increased AP diameter. Heart: NL S1S2, no m,r. Neck veins flat when supine. Abdomen: Soft, no guarding, nontender. BS active. Extremities: Chronically edematous lower legs with anasarca. Well perfused. Neuro: Awake and alert, Moves 4 limbs spontaneously. Protects airway, handles oral secretions. A/P Problem List: (1) STEMI (ST elevation myocardial infarction) ICD Code: I21.3 Status: Acute (2) Acute on chronic respiratory failure with hypoxemia ICD Code: J96.21 Status: Acute (3) Pneumonia ICD Code: J18.9 Status: Acute (4) Diabetes mellitus type 2, uncontrolled ICD Code: E11.65 Status: Acute Assessment and Plan Plan: CV: DAPT per Cardiology Service. IV hydration. Off levophed. RESP:` Bronchodilators. supplemental O2. Patient evaluated by pulmonary. Solu-Medrol 40 mg IV daily. Per patient's daughter he does not have COPD NEURO: Off sedation. Delirium. Restoril stopped 04/08 RENAL: Strict intake output, monitor and replete electrolytes, follow BUN/ creatinine : Valenzuela to CBD. Start scheduled diuretics when off levophed. KVO IV fluids. GI: Passed swallow eval, by mouth diet as tolerated. Concern regarding recurrent aspiration. HEME: Follow Hgb, wbcs. ID: Aztreonam stopped by ID on 04/07, remains on levaquin per ID ENDO: Started levemir and SSI q6h coverage on 04/07. Stopped Insulin gtt on . Levemir held morning of 04/08 in view of hypoglycemia and dose decreased to 10 units daily. Levemir discontinued 04/09 due to hypoglycemic episodes at night. PX: Pepcid, lovenox 30mg daily Overall impression: This fragile, elderly gentleman with hypoxemic respiratory failure and an acute STEMI. PCI tolerated and now in ICU. He has extensive anasarca and appears chronically debilitated. Discussed current clinical status and plan of care with patient's daughter who is a hospitalist in detail on 04/08 and she voiced understanding and was agreeable with plan of care. Will transfer out of ICU. Transfer to hospitalist service for further medical management. Discussed with Dr. Campos earlier. He will be contacting patient's daughter to discuss possibility of PEG tube as he is concerned that patient is having recurrent aspiration. Problem Qualifiers (1) STEMI (ST elevation myocardial infarction): Qualified Code: I21.02 - ST elevation myocardial infarction involving left anterior descending (LAD) coronary artery (2) Pneumonia: Nemani,David K. MD Apr 09, 2016 17:18
--- NOTE | 2016-04-09 18:14 | HHI.PR ---
Subjective Remarks Alert and on O2 at 3 L. Output was good.seems confused. Objective Vital Signs Date Time Temp Pulse Resp B/P Pulse Ox O2 Delivery O2 Flow Rate FiO2 04/09/16 16:00 100 04/09/16 16:00 97.9 99 25 107/57 97 04/09/16 14:15 101 04/09/16 12:00 99 04/09/16 12:00 97.8 99 25 109/68 96 04/09/16 10:35 96 Nasal Cannula 2.00 04/09/16 10:00 112 04/09/16 08:15 97.8 104 20 135/68 99 04/09/16 08:00 104 04/09/16 06:00 105 04/09/16 04:00 112 04/09/16 04:00 97.5 112 26 119/52 93 04/09/16 02:00 118 04/09/16 00:00 97.5 115 31 126/61 92 04/09/16 00:00 115 04/08/16 22:00 115 04/08/16 20:00 105 04/08/16 20:00 97.5 105 30 106/64 96 I/O 04/08/16 04/08/16 04/08/16 04/09/16 04/09/16 04/09/16 07:00 15:00 23:00 07:00 15:00 23:00 Intake Total 51 ml 288 ml 160 ml 93 ml 363 ml Output Total 350 ml 370 ml 300 ml 275 ml Balance 51 ml -62 ml -210 ml -207 ml 88 ml Intake Oral 240 ml 120 ml 60 ml 300 ml IV Total 51 ml 48 ml 40 ml 33 ml 63 ml Output Urine Total 350 ml 370 ml 300 ml 275 ml Result Diagram: 04/08/16 0345 04/08/16 0345 Objective Remarks GENERAL: This is an emaciated looking elderly man who is in bed, pale and mildly dyspneic at rest. HEENT: Head normocephalic. Pupils reactive. Tongue is dry and throat injected. Ears inflammation. NECK: Supple. No bruits, no thyroid enlargement. CHEST: Equal movements with wheezes bilaterally, prolonged expirations, crackles at the lung bases. HEART: The heart sounds are irregular S1 and S2. No murmur. ABDOMEN: Soft, protuberant. No masses, no organomegaly or tenderness. Bowel sounds are active EXTREMITIES: Muscle wasting and diminished pulses. Reflexes 1+. The patient does move his legs but weak.no edema SKIN: Revealed no definite lesions. Assessment and Plan Assessment and Plan IMPRESSION 1. ST elevation myocardial infarction 2. Chronic respiratory failure. 3. Basilar pneumonia and hypoxemia. 4. Chronic obstructive pulmonary disease 5. Diabetes mellitus type 2. 6. Plan : 1. Continue antibiotics. 2. IV fluids and monitor Blood sugar. 3. Nebs tid , duoneb. 4. CBC,BMP in am. 5. PT evaluation. 6. Pureed diet, and calorie count. Gabriel Campos MD Apr 09, 2016 18:14
[2016-04-09] MEDS: ATORVASTATIN 40 MG TAB PO SCH ×2 (19:57→21:10)
--- NOTE | 2016-04-09 20:39 | RADRPT ---
EXAM DATE/TIME: 04/09/2016 18:43 [facility] COMPARISON: No previous studies available for comparison. INDICATIONS : Pleural effusion. Chest marking. MEDICAL HISTORY : Hypercholesterolemia. Gastroesophageal reflux disease. Dyspnea. Diabetes. SURGICAL HISTORY : Laminectomy L4-L5. ENCOUNTER: Initial ACUITY: 1 day PAIN SCORE: 0/10 LOCATION: Left chest MEASUREMENTS: SKIN TO PARIETAL PLEURA: 1.1 cm SKIN TO MAX SAFE DEPTH: 3.4 cm ESTIMATED FLUID VOLUME: 468 cc FLUID COMPOSITION: simple FINDINGS: Pleural effusion as above. A lucio was placed on the skin surface superficial to the pleural fluid col lection. CONCLUSION: Approximately 470 cc left pleural effusion. Thoracentesis lucio made. Fabien Simental MD on April 09, 2016 at 20:37 Board Certified Radiologist. This report was verified electronically.
--- NOTE | 2016-04-09 20:40 | RADRPT ---
EXAM DATE/TIME: 04/09/2016 18:47 [facility] COMPARISON: No previous studies available for comparison. INDICATIONS : Pleural effusion. Chest marking. MEDICAL HISTORY : Hypercholesterolemia. Gastroesophageal reflux disease. Dyspnea. Diabetes. SURGICAL HISTORY : Laminectomy L4-L5. ENCOUNTER: Initial ACUITY: 1 day PAIN SCORE: 0/10 LOCATION: Right chest MEASUREMENTS: SKIN TO PARIETAL PLEURA: 1.4 cm SKIN TO MAX SAFE DEPTH: 3.0 cm ESTIMATED FLUID VOLUME: 290 cc FLUID COMPOSITION: simple FINDINGS: Small right pleural effusion estimated at 290 cc and without a safe thoracentesis trajectory demonstr ated. CONCLUSION: Small right pleural effusion. No thoracentesis lucio made. Fabien Simental MD on April 09, 2016 at 20:37 Board Certified Radiologist. This report was verified electronically.
[2016-04-10] VITALS (14 sets, daily range): BP systolic 109–137; BP diastolic 50–86; PULSE 84–108; RESP 18–25; TEMP 79.3–98.9; O2SAT 92–97
[2016-04-10] MEDS: DEXTROSE 50% IN WATER 50 ML VIAL(D50) IV PRN ×2 (04:45→04:46)
[2016-04-10] MEDS: LEVOFLOXACIN 250 MG PREMIX INJ 50 ML IV SCH (05:00)
[2016-04-10] MEDS: FAMOTIDINE 20 MG/2 ML VIAL IV PUSH SCH (05:00)
[2016-04-10] MEDS: CHLORHEXIDINE GLUCONATE 2 % 1 PACK (2 CLOTHS)(taper/protocol) TOP SCH (05:01)
[2016-04-10 05:49] LABS: AUTOMATED NEUTROPHIL # 8.6 TH/MM3 (1.8-7.7); HEMATOCRIT 28.7 % (39.0-51.0); HEMO FLAGS DIFF FINAL; LYMPH % 1.6 % (9.0-44.0); LYMPHOCYTE # 0.1 TH/MM3 (1.0-4.8); MEAN CELL VOLUME 91.3 FL (80.0-100.0); MEAN CORPUSCULAR HEMOGLOBIN 30.9 PG (27.0-34.0); MEAN CORPUSCULAR HGB CONC 33.9 % (32.0-36.0); MONO % 5.8 % (0.0-8.0); NEUT % 92.6 % (16.0-70.0); PLATELET COUNT 186 TH/MM3 (150-450); RED BLOOD COUNT 3.14 MIL/MM3 (4.50-5.90); RED CELL DISTRIBUTION WIDTH 15.1 % (11.6-17.2); WHITE BLOOD COUNT 9.3 TH/MM3 (4.0-11.0)
[2016-04-10 06:08] LABS: ALKALINE PHOSPHATASE 79 U/L (45-117); ALT (GPT) 45 U/L (12-78); ANION GAP 9 MEQ/L (5-15); AST (GOT) 69 U/L (15-37); BICARBONATE 26.8 MEQ/L (21.0-32.0); BLOOD UREA NITROGEN 29 MG/DL (7-18); CHLORIDE 111 MEQ/L (98-107); GLOMERULAR FILTRATION RATE 86 ML/MIN (>89); MAGNESIUM 1.8 MG/DL (1.5-2.5); POTASSIUM 3.6 MEQ/L (3.5-5.1); SODIUM (NA) 147 MEQ/L (136-145); TOTAL BILIRUBIN ADULT 0.8 MG/DL (0.2-1.0)
--- NOTE | 2016-04-10 06:24 | PD.CARD.PN ---
Subjective Subjective Remarks Resting comfortably. Somnolent. Restless night, refused medications. Objective Medications Item Value Date Time Carvedilol 3.125 mg 04/09/16 0900 (Coreg) Q12HR/PO 04/09/162109 Clopidogrel 75 mg 04/07/16 1100 Bisulfate DAILY/PO 04/09/16 08 (Plavix) Atorvastatin 40 mg 04/06/16 2100 Calcium HS/PO 04/09/162109 (Lipitor) Aspirin 325 mg 04/06/16 0900 (Aspirin) DAILY/PO 04/09/16 08 Vital Signs / I&O Vital Signs Date Time Temp Pulse Resp B/P Pulse Ox O2 Delivery O2 Flow Rate FiO2 04/10/16 06:00 108 04/10/16 04:00 102 04/10/16 04:00 79.3 102 22 137/57 93 04/10/16 02:00 104 04/10/16 00:00 101 04/10/16 00:00 97.4 101 25 128/86 93 04/09/16 22:00 128 04/09/16 20:00 105 04/09/16 20:00 97.8 105 24 107/57 90 04/09/16 19:36 99 Nasal Cannula 2.00 04/09/16 18:08 104 04/09/16 16:00 100 04/09/16 16:00 97.9 99 25 107/57 97 04/09/16 14:15 101 04/09/16 12:00 99 04/09/16 12:00 97.8 99 25 109/68 96 04/09/16 10:35 96 Nasal Cannula 2.00 04/09/16 10:00 112 04/09/16 08:15 97.8 104 20 135/68 99 04/09/16 08:00 104 I/O 04/09/16 04/09/16 04/09/16 04/10/16 04/10/16 04/10/16 07:00 15:00 23:00 07:00 15:00 23:00 Intake Total 93 ml 363 ml 5 ml Output Total 300 ml 275 ml 550 ml Balance -207 ml 88 ml -545 ml Intake Oral 60 ml 300 ml IV Total 33 ml 63 ml 5 ml Output Urine Total 300 ml 275 ml 550 ml # Bowel Movements 0 Physical Exam GENERAL: Well developed, very thin. Somnolent. HEENT: Jugular venous pressure is normal. CHEST: Lungs clear to auscultation anteriorly. CARDIAC: Regular rate and rhythm without S3, S4. I/ AKHIL RUSB. ABDOMEN: Soft, nontender, no hepatosplenomegaly. Bowel sounds present. EXTREMITIES: No clubbing, cyanosis, or edema. Laboratory Laboratory Tests Test 04/10/16 04:10 White Blood Count 9.3 TH/MM3 Red Blood Count 3.14 MIL/MM3 Hemoglobin 9.7 GM/DL Hematocrit 28.7 % Mean Corpuscular Volume 91.3 FL Mean Corpuscular Hemoglobin 30.9 PG Mean Corpuscular Hemoglobin 33.9 % Concent Red Cell Distribution Width 15.1 % Platelet Count 186 TH/MM3 Mean Platelet Volume 10.3 FL Neutrophils (%) (Auto) 92.6 % Lymphocytes (%) (Auto) 1.6 % Monocytes (%) (Auto) 5.8 % Eosinophils (%) (Auto) 0.0 % Basophils (%) (Auto) 0.0 % Neutrophils # (Auto) 8.6 TH/MM3 Lymphocytes # (Auto) 0.1 TH/MM3 Monocytes # (Auto) 0.5 TH/MM3 Eosinophils # (Auto) 0.0 TH/MM3 Basophils # (Auto) 0.0 TH/MM3 CBC Comment DIFF FINAL Differential Comment Sodium Level 147 MEQ/L Potassium Level 3.6 MEQ/L Chloride Level 111 MEQ/L Carbon Dioxide Level 26.8 MEQ/L Anion Gap 9 MEQ/L Blood Urea Nitrogen 29 MG/DL Creatinine 0.84 MG/DL Estimat Glomerular Filtration 86 ML/MIN Rate Random Glucose 175 MG/DL Calcium Level 7.8 MG/DL Magnesium Level 1.8 MG/DL Total Bilirubin 0.8 MG/DL Aspartate Amino Transf 69 U/L (AST/SGOT) Alanine Aminotransferase 45 U/L (ALT/SGPT) Alkaline Phosphatase 79 U/L Total Protein 4.9 GM/DL Albumin 2.0 GM/DL Assessment and Plan Problem List: (1) STEMI (ST elevation myocardial infarction) Assessment and Plan: Status post anterior STEMI, PTCA of prox and mid LAD, unsuccessful stenting. Stable overnight. Hemodynamically stable, slightly tachycardic. Patient refused taking carvedilol, atorvastatin last night. EF by echo close to 45%. No evidence for CHF/arrhythmias so far. REC continue aspirin, Plavix cont statin cont carvedilol OK for discharge from a cardiac standpoint, 3-4 week f/u with me, coverage to see PRN over the weekend Code Status full code Problem Qualifiers (1) STEMI (ST elevation myocardial infarction): Qualified Code: I21.02 - ST elevation myocardial infarction involving left anterior descending (LAD) coronary artery Naun Ferrari MD Apr 10, 2016 06:24
--- NOTE | 2016-04-10 06:55 | RADRPT ---
EXAM DATE/TIME: 04/10/2016 05:19 [facility] COMPARISON: CHEST SINGLE AP, April 08, 2016, 4:51. INDICATIONS : Evaluate for aspiration. MEDICAL HISTORY : Chronic obstructive pulmonary disease. Diabetes mellitus type II. SURGICAL HISTORY : None. ENCOUNTER: Subsequent ACUITY: 4 - 6 days PAIN SCORE: Non-responsive. LOCATION: Bilateral chest FINDINGS: Right IJ line is present with tip overlapping the expected region of the SVC. Bilateral pleural effus ions have not changed, however there is slight worsening of haziness of the lungs probably worsening pulmonary edema. Left lung base consolidation is also seen. CONCLUSION: Slight worsening pulmonary edema and left lung base consolidation not clearly seen previously. Pleura l effusions have not changed. Cyrus Mcdonough MD on April 10, 2016 at 6:53 Board Certified Radiologist. This report was verified electronically.
[2016-04-10] MEDS: INSULIN ASPART SUPPLEMENTAL SCALE SQ SCH ×4 (07:03→21:15)
[2016-04-10] MEDS: RESP: ALBUTEROL 2.5 MG/IPRATROPIUM 0.5 MG NEB (SCH) NEB ×3 (07:40→21:16)
[2016-04-10] MEDS: INSULIN DETEMIR 100 UNITS/ML VIAL SQ SCH (09:00)
[2016-04-10] MEDS: SODIUM CHLORIDE 0.9% FLUSH 5 ML FLUSH IVF SCH ×2 (09:00→21:16)
[2016-04-10] MEDS: FLUTICASONE 100 MCG/VILANTEROL 25 MCG INHALER INH SCH (09:00)
[2016-04-10] MEDS: DOCUSATE SODIUM 100 MG/10 ML UDC PO SCH ×2 (09:00→21:16)
[2016-04-10] MEDS: CLOPIDOGREL 75 MG TAB PO SCH (10:25)
[2016-04-10] MEDS: ASPIRIN 325 MG TAB PO SCH (10:25)
[2016-04-10] MEDS: CARVEDILOL 3.125 MG TAB PO SCH (10:25)
--- NOTE | 2016-04-10 10:49 | HHI.PR ---
Subjective Remarks Pt not really responsive even with sternal rub Pt reportedly had just gotten up to the side of the bed with PT prior to our evaluation Pt with some noted agonal breathing On 4L via NC Objective Vitals Vital Signs Date Time Temp Pulse Resp B/P Pulse Ox O2 Delivery O2 Flow Rate FiO2 04/10/16 07:41 92 Nasal Cannula 4.00 04/10/16 06:00 108 04/10/16 04:00 102 04/10/16 04:00 79.3 102 22 137/57 93 04/10/16 02:00 104 04/10/16 00:00 101 04/10/16 00:00 97.4 101 25 128/86 93 04/09/16 22:00 128 04/09/16 20:00 105 04/09/16 20:00 97.8 105 24 107/57 90 04/09/16 19:36 99 Nasal Cannula 2.00 04/09/16 18:08 104 04/09/16 16:00 100 04/09/16 16:00 97.9 99 25 107/57 97 04/09/16 14:15 101 04/09/16 12:00 99 04/09/16 12:00 97.8 99 25 109/68 96 04/09/16 04/09/16 04/10/16 15:00 23:00 07:00 Intake Total 363 ml 5 ml 46 ml Output Total 275 ml 550 ml 650 ml Balance 88 ml -545 ml -604 ml Intake Oral 300 ml 0 ml IV Total 63 ml 5 ml 46 ml Output Urine Total 275 ml 550 ml 650 ml # Bowel Movements 0 0 Result Diagram: 04/10/16 0410 04/10/16 0410 Other Results Laboratory Tests Test 04/09/16 04/10/16 02:30 04:10 Urine Color YELLOW Urine Turbidity HAZY Urine pH 5.0 Urine Specific [place] 1.022 Urine Protein 30 mg/dL Urine Glucose (UA) NEG mg/dL Urine Ketones NEG mg/dL Urine Occult Blood LARGE Urine Nitrite NEG Urine Bilirubin NEG Urine Urobilinogen LESS THAN 2.0 MG/DL Urine Leukocyte Esterase SMALL Urine RBC 108 /hpf Urine WBC 5 /hpf Urine Bacteria OCC /hpf Urine Mucus FEW /lpf Microscopic Urinalysis Comment CATH-CULTURE IND White Blood Count 9.3 TH/MM3 Red Blood Count 3.14 MIL/MM3 Hemoglobin 9.7 GM/DL Hematocrit 28.7 % Mean Corpuscular Volume 91.3 FL Mean Corpuscular Hemoglobin 30.9 PG Mean Corpuscular Hemoglobin 33.9 % Concent Red Cell Distribution Width 15.1 % Platelet Count 186 TH/MM3 Mean Platelet Volume 10.3 FL Neutrophils (%) (Auto) 92.6 % Lymphocytes (%) (Auto) 1.6 % Monocytes (%) (Auto) 5.8 % Eosinophils (%) (Auto) 0.0 % Basophils (%) (Auto) 0.0 % Neutrophils # (Auto) 8.6 TH/MM3 Lymphocytes # (Auto) 0.1 TH/MM3 Monocytes # (Auto) 0.5 TH/MM3 Eosinophils # (Auto) 0.0 TH/MM3 Basophils # (Auto) 0.0 TH/MM3 CBC Comment DIFF FINAL Differential Comment Sodium Level 147 MEQ/L Potassium Level 3.6 MEQ/L Chloride Level 111 MEQ/L Carbon Dioxide Level 26.8 MEQ/L Anion Gap 9 MEQ/L Blood Urea Nitrogen 29 MG/DL Creatinine 0.84 MG/DL Estimat Glomerular Filtration 86 ML/MIN Rate Random Glucose 175 MG/DL Calcium Level 7.8 MG/DL Magnesium Level 1.8 MG/DL Total Bilirubin 0.8 MG/DL Aspartate Amino Transf 69 U/L (AST/SGOT) Alanine Aminotransferase 45 U/L (ALT/SGPT) Alkaline Phosphatase 79 U/L Total Protein 4.9 GM/DL Albumin 2.0 GM/DL Imaging Last Impressions Chest X-Ray 04/10/16 0600 Signed Impressions: Service Date/Time: Sunday, April 10, 2016 05:19 - CONCLUSION: Slight worsening pulmonary edema and left lung base consolidation not clearly seen previously. Pleural effusions have not changed. Cyrus Mcdonough MD Chest Ultrasound 04/09/16 0000 Signed Impressions: Service Date/Time: March 18:47 - CONCLUSION: Small right pleural effusion. No thoracentesis lucio made. Fabien Simental MD Head CT 04/08/16 0330 Signed Impressions: Service Date/Time: Friday, April 08, 2016 04:46 - CONCLUSION: No evidence of acute intracranial findings Fabien Randall MD Chest CT 04/07/16 0000 Signed Impressions: Service Date/Time: [place], April 07, 2016 15:15 - CONCLUSION: 1. Bilateral lower lobe atelectasis versus pneumonia. 2. Moderate bilateral effusions Lui Guerra MD Objective Remarks General: Thin elderly male, minimally responsive with sternal rub Chest: Decreased breath sounds on the left Cardiac: Regular Abd: +BS, cachectic, nontender Ext: No edema A/P Problem List: (1) STEMI (ST elevation myocardial infarction) Status: Acute Plan: - Pt admitted with respiratory distress, fever of 103 [address] changes with ST elevations in multiple leads. - Pt was admitted to ICU/Intensivists and Cardiology. - Pt underwent LHC which noted moderate to severe three-vessel coronary artery disease, severely reduced left ventricular systolic function with estimated EF of 20-25% due to akinesis of the apex, mid to distal inferior wall, and mid to distal anterior wall, s/p difficult angioplasty of the proximal and mid LAD, unsuccessful stenting of the mid-LAD. - 2D echo (04/06) - Mild LVH - EF 45% - Akinesis of the mid-distal anteroseptal. anterior, and apical myocardium - Mild to moderate tricuspid regurg - Moderately to severely increased PA peak pressure of 62mmHg - Pt has been slightly tachycardic - He is on Carvedilol/Atorvastatin/Plavix last night. - DVT prophylaxis (2) Acute on chronic respiratory failure with hypoxemia Status: Acute Plan: - Pt with a reported hx of COPD - Pulmonary medicine is following. - Pt was being treated for aspiration pneumonia prior to admission with Levaquin - Chest CT (04/07) --> Bilateral lower lobe atelectasis versus pneumonia. Moderate bilateral effusions - US Chest (04/09) with small right pleural effusion and ~470cc left pleural effusion, marked for thoracentesis. - CXR (04/10) --> Slight worsening pulmonary edema and left lung consolidation, pleural effusions have not changed. - Speech therapy following the pt and evaluation on 04/09 without any overt s/s of aspiration on mechanical soft diet with chopped meats/gravy and thin liquids. - Pulmonary planning for bedside thoracentesis today. - We will start Lasix 20mg IV BID and potassium this evening. - Duonebs Q6H and Q2H PRN - Pt had been on Solu-Medrol (04/07-04/09) - Repeat CXR now (3) Aspiration pneumonia Status: Acute Plan: - Pt was being treated prior to admission for possible aspiration pneumonia. - Blood culture (04/05) with staph coagulase negative in 03/25 bottles suggesting contamination. - Pt was treated with Levaquin IV (04/06-04/10) and Azactam (04/06-04/07) - ID following and ST following. - Pt tolerating modified diet currently - Discussed the case with ID this morning and will stop antibiotics and monitor WBC and for fevers. (4) Diabetes mellitus type 2, uncontrolled Status: Acute Plan: - Pt reportedly a brittle diabetic - Pt is on NovoLog SSI - Accu checks - Pt became hypoglycemic with Levemir, we will discontinue this. - Check blood sugars now Assessment and Plan Dr. Pimentel discussed the case with the pts family and they have agreed to DNR Patient examined. Assessment and plan formulated with Bisi Heath PA-C. I agree with the above. Family rescinded DNR status. Problem Qualifiers (1) STEMI (ST elevation myocardial infarction): Qualified Code: I21.02 - ST elevation myocardial infarction involving left anterior descending (LAD) coronary artery (2) Diabetes mellitus type 2, uncontrolled: Qualified Code: E11.8 - Uncontrolled type 2 diabetes mellitus with complication , without long-term current use of insulin Bisi Heath Apr 10, 2016 10:49 Taz Pimentel DO Apr 17, 2016 19:42
[2016-04-10] MEDS ORDERED: RESP: ALBUTEROL 2.5 MG/IPRATROPIUM 0.5 MG NEB (PRN) NEB (11:15)
--- NOTE | 2016-04-10 12:31 | RADRPT ---
EXAM DATE/TIME: 04/10/2016 12:05 [facility] COMPARISON: CHEST SINGLE AP, April 10, 2016, 5:19. INDICATIONS : Hypoxia. MEDICAL HISTORY : Chronic obstructive pulmonary disease. Diabetes mellitus type II. SURGICAL HISTORY : None. ENCOUNTER: Subsequent ACUITY: 4 - 6 days PAIN SCORE: 0/10 LOCATION: Bilateral chest FINDINGS: Pulmonary hyperinflation and central congestive changes are still evident. There are small bilateral pleural effusions which appear stable. Heart and mediastinal structures are stable. Right jugular central line remains in place. CONCLUSION: COPD with underlying pulmonary congestion and small bilateral effusions. No change since earlier exam. Armand Cerna MD on April 10, 2016 at 12:27 Board Certified Radiologist. This report was verified electronically.
[2016-04-10 12:42] LABS: BLOOD GAS BASE EXCESS 0.5 mmol/L (-2-2); BLOOD GAS CARBOXYHEMOGLOBIN 0.5 % (0-4); BLOOD GAS HCO3 24 mmol/L (22-26); BLOOD GAS METHEMOGLOBIN 0.8 % (0-2); BLOOD GAS O2 HGB SATURATION 92 % (90-100); BLOOD GAS OXYGEN CONTENT 13.2 Vol % (12.0-20.0); BLOOD GAS PCO2 32 mmHg (38-42); BLOOD GAS PO2 73 mmHg (61-120); BLOOD GAS TOTAL HGB 10.2 G/DL (12.0-16.0); TEMP CORR TO 98.6
[2016-04-10 12:43] LABS: CRITICAL VALUE NO; DRAW SITE RT RADIAL; LITER FLOW 4 L/M; NUMBER OF ARTERIAL PUNCTURES 1; OXYGEN DEVICE NASAL CANNULA; STAT NO
[2016-04-10] MEDS ORDERED: POTASSIUM CHLOR 20 MEQ PREMIX 100 ML IV ONE (12:45)
--- NOTE | 2016-04-10 12:53 | HHI.CCPN ---
Subjective Remarks/Hospital Course 04/06: 89 y/o fragile, elderly man developed worsening SOB. In ED EKG showed possible STEMI. Alert called and PCI LAD performed. He was febrile to 103 at scene and has leukocytosis on arrival. CXR with khadijah lower lobe infiltrates. Remains hypoxemic requiring NRBM to maintain saturation > 90%. Antibiotic load in ED. Many allergies. Diabetes poorly controlled. 04/07: Sitting up in bed on 4 L nasal cannula. Does not appear to be any acute distress. On Levophed 1 david per minute currently. Passed swallow eval. 1 unit PRBCs ordered this morning for hemoglobin 7.9 04/08: Fell out of bed last night. Head CT negative for bleed. Was hypoglycemic with finger stick glucose in the 30s for which she received D50. This morning he is drowsy but easily arousable. Levemir held this morning. Has remained off Levophed since yesterday. 04/09: Hypoglycemic last night. Levemir being discontinued.. Remains off pressors. On nasal cannula. Subjective: 04/10: We consulted secondary to altered mental status. After physical therapy today, patient became unresponsive. On my examination will open eyes patient will arouse and follow commands in all 4 extremities. However quite somnolent. Was restless overnight per documentation from cardiology. He revealed respiratory alkalosis/acute. Stat CT head pending. Objective Vital Signs Date Time Temp Pulse Resp B/P Pulse Ox O2 Delivery O2 Flow Rate FiO2 04/10/16 07:41 92 Nasal Cannula 4.00 04/10/16 06:00 108 04/10/16 04:00 79.3 22 137/57 04/07/16 20:30 21 Intake and Output 04/09/16 04/09/16 04/10/16 08:00 16:00 00:00 Intake Total 93 ml 363 ml 5 ml Output Total 300 ml 275 ml 550 ml Balance -207 ml 88 ml -545 ml Result Diagram: 04/10/16 0410 04/10/16 0410 Other Results Microbiology Date/Time Procedure Status Source Growth 04/09/16 02:30 Urine Culture - Preliminary Resulted Urine Catheterized Urine NO GROWTH IN 24 HOURS. 04/05/16 19:30 Aerobic Blood Culture - Final Complete Blood Peripheral NO GROWTH IN 5 DAYS 04/05/16 19:30 Anaerobic Blood Culture - Final Complete Blood Peripheral NO GROWTH IN 5 DAYS Imaging Last Impressions Chest X-Ray 04/10/16 0600 Signed Impressions: Service Date/Time: Sunday, April 10, 2016 05:19 - CONCLUSION: Slight worsening pulmonary edema and left lung base consolidation not clearly seen previously. Pleural effusions have not changed. Cyrus Mcdonough MD Chest Ultrasound 04/09/16 0000 Signed Impressions: Service Date/Time: March 18:47 - CONCLUSION: Small right pleural effusion. No thoracentesis lucio made. Fabien Simental MD Head CT 04/08/16 0330 Signed Impressions: Service Date/Time: Friday, April 08, 2016 04:46 - CONCLUSION: No evidence of acute intracranial findings Fabien Randall MD Chest CT 04/07/16 0000 Signed Impressions: Service Date/Time: Thursday, April 07, 2016 15:15 - CONCLUSION: 1. Bilateral lower lobe atelectasis versus pneumonia. 2. Moderate bilateral effusions Lui Guerra MD Objective Remarks GEN: 89-year-old male, Frail, elderly currently resting in bed in no acute distress with mouth open Head: Atraumatic, normocephalic Neck: Chronic stiffness. Airway widely patent. Lungs: Good air entry bilaterally, bibasilar crackles Chest: Markedly increased AP diameter. Heart: NL S1S2, no m,r. Neck veins flat when supine. Abdomen: Soft, no guarding, nontender. BS active. Extremities: Chronically edematous lower legs with anasarca. Well perfused. Neuro: Arousable falls asleep. Will answer questions appropriately and follow commands with all 4 extremities. A/P Problem List: (1) STEMI (ST elevation myocardial infarction) ICD Code: I21.3 Status: Acute (2) Acute on chronic respiratory failure with hypoxemia ICD Code: J96.21 Status: Acute (3) Pneumonia ICD Code: J18.9 Status: Acute (4) Diabetes mellitus type 2, uncontrolled ICD Code: E11.65 Status: Chronic Assessment and Plan Neuro/Psych: Acute encephalopathy Patient is on lactulose 30 cc 3 times a day home. Ammonia level currently pending. Stat CT the head pending. ABG revealed a respiratory alkalosis. Blood sugar was 314. CV: Three-vessel coronary disease Hypertension Dyslipidemia Pulmonary hypertension 2-D echocardiogram revealed EF 40-45%. Akinesis of the mid/distal anteroseptal anterior and apical regions. Moderate TR. DERICK 62 mmHg Cardiac catheterization 04/05 revealed three-vessel coronary disease. EF 20-25% . Akinesis of apex count inferior anterior brantley mid to distal region. Angioplasty of the proximal mid LAD. Unsuccessful stenting. Currently in aspirin 81 mg daily. Plavix 70 and it has been discontinued by cardiology/Dr. Flores. Continue Lipitor 40 mg by mouth daily. On simvastatin 60 mg daily at home. On lisinopril 5 mg by mouth daily at home for hypertension. Continue Lasix 20 mg IV twice a day. Diuresed 1 L overnight. Resp: Acute respiratory insufficiency secondary to pulmonary edema/COPD?. Nasal cannula to maintain saturations greater than or equal to 92%. Currently on 5 L nasal cannula. Incentive spirometry while awake Currently on Breo Elipta 100/25 one inhalation daily. ABG revealed acute respiratory alkalosis. GI: Gastroesophageal reflux disease Currently on Pepcid 10 mg by mouth twice a day. On Prilosec 20 mg by mouth daily at home. 2 bowel movements overnight : Valenzuela if indicated for accurate I's and O's in a critically ill patient Endo: Diabetes mellitus Currently on sliding scale insulin with Accu-Cheks to maintain euglycemia. Episodic hypoglycemia while on Lantus. This has been discontinued. Blood sugar currently 314 Renal: Creatinine currently within normal limits. Monitor I's and O's. Heme: Normocytic anemia Monitor CBC daily. ID: Staph hominis bacteremia/likely contaminant Treated with aztreonam and Levaquin. Both these antibiotics have been discontinued by infectious disease FEN: Hypernatremia Hypo-magnesium Replace electrolytes as clinically indicated. 2 g magnesium sulfate 1 now. MSK: PT evaluate and treat Access - Right IJ CVL placed 04/05/2016 Prophylaxis - GI - Pepcid - DVT - SCD/Lovenox subcutaneous Critical Care: The total critical care time was 45 minutes. Time to perform other separately billable procedures was not included in the critical care time. CV: DAPT per Cardiology Service. IV hydration. Off levophed. RESP:` Bronchodilators. supplemental O2. Patient evaluated by pulmonary. Solu-Medrol 40 mg IV daily. Per patient's daughter he does not have COPD NEURO: Off sedation. Delirium. Restoril stopped 1/18 RENAL: Strict intake output, monitor and replete electrolytes, follow BUN/ creatinine : Valenzuela to CBD. Start scheduled diuretics when off levophed. KVO IV fluids. GI: Passed swallow eval, by mouth diet as tolerated. Concern regarding recurrent aspiration. HEME: Follow Hgb, wbcs. ID: Aztreonam stopped by ID on 04/07, remains on levaquin per ID ENDO: Started levemir and SSI q6h coverage on 04/07. Stopped Insulin gtt on . Levemir held morning of 04/08 in view of hypoglycemia and dose decreased to 10 units daily. Levemir discontinued 04/09 due to hypoglycemic episodes at night. Problem Qualifiers (1) STEMI (ST elevation myocardial infarction): Qualified Code: I21.02 - ST elevation myocardial infarction involving left anterior descending (LAD) coronary artery (2) Pneumonia: Qualified Code: J18.1 - Pneumonia of left lower lobe due to infectious organism (3) Diabetes mellitus type 2, uncontrolled: Qualified Code: E11.8 - Uncontrolled type 2 diabetes mellitus with complication , without long-term current use of insulin Carter Mccracken MD Apr 10, 2016 12:53
--- NOTE | 2016-04-10 14:07 | RADRPT ---
EXAM DATE/TIME: 04/10/2016 13:51 [facility] COMPARISON: CT BRAIN W/O CONTRAST, April 08, 2016, 4:46. INDICATIONS : Altered mental status; decreased level of consciousness. RADIATION DOSE: 47.50 CTDIvol (mGy) MEDICAL HISTORY : Cardiovascular disease. Diabetes mellitus type 2. SURGICAL HISTORY : Laminectomy. ENCOUNTER: Initial ACUITY: 1 day PAIN SCALE: 0/10 LOCATION: cranial TECHNIQUE: Multiple contiguous axial images were obtained of the head. Using automated exposure control and adj ustment of the mA and/or kV according to patient size, radiation dose was kept as low as reasonably a chievable to obtain optimal diagnostic quality images. FINDINGS: CEREBRUM: The ventricles are normal for age. No evidence of midline shift, mass lesion, hemorrhage or acute in farction. No extra-axial fluid collections are seen. POSTERIOR FOSSA: The cerebellum and brainstem are intact. The 4th ventricle is midline. The cerebellopontine angle i s unremarkable. EXTRACRANIAL: The visualized portion of the orbits is intact. SKULL: The calvaria is intact. No evidence of skull fracture. Extensive vertebrobasilar calcifications are noted. CONCLUSION: Extensive vertebrobasilar calcifications are noted, negative for acute process. Khris Clemens MD FACR on April 10, 2016 at 14:05 Board Certified Radiologist. This report was verified electronically.
--- NOTE | 2016-04-10 14:32 | HHI.HCPN ---
Reason for visit a. To assist with evaluation and management of symptoms including: chest pain, lethargy. b. To assist medical decision maker(s) with: better understanding of current medical conditions; weighing benefits/burdens of medical treatment options; making medical treatment decisions. . (JARRELL SIFUENTES) Subjective/Interval History Patient seen and examined in ICU. Nurse and daughterCornell at bedside. is not present. Patient is lethargic, arousable but falls off to sleep easily. He answers a few simple questions. He is not speaking as much yesterday he talked to me constantly during the 15 minutes at his bedside yesterday. He was drinking independently. Speech evaluation downgraded to pureed with honey thickened liquids due to moderate oral pharyngeal dysphagia. Afebrile. Tachycardic. Increased oxygen need today now on oxygen 4 LPM via NC. He denies pain or shortness of breath. WBC 9.3. Albumin 2.0. Chest x-ray with worsening pulmonary edema. Staff indicated family had previously elected NO CODE, however rescinded for FULL CODE. . Family/friend interactions Spoke with daughterCornell at bedside she is appropriately tearful. She verbalizes patient was "doing so much better yesterday." She reports her mother and sister will be returning to hospital shortly. Patient going for CT head as I leave the room. EEG ordered. Palliative care number provided. . (JARRELL SIFUENTES) Advance Directives Living Will: Never completed Health Care Surrogate: Never completed Durable Power of Metal Drill Operator: Never completed (JARRELL SIFUENTES) Advance Directive Specifics Health Care Surrogate(s): No known written advance directives. According to [place] statutes health care proxy decision-making falls to his spouse. . Significant change in goals: FULL CODE. Continue aggressive care for now. . (JARRELL SIFUENTES) Objective Vital Signs Date Time Temp Pulse Resp B/P Pulse Ox O2 Delivery O2 Flow Rate FiO2 04/10/16 10:00 108 04/10/16 08:00 97 04/10/16 07:41 92 Nasal Cannula 4.00 04/10/16 06:00 108 04/10/16 04:00 102 04/10/16 04:00 79.3 102 22 137/57 93 04/10/16 02:00 104 04/10/16 00:00 101 04/10/16 00:00 97.4 101 25 128/86 93 04/09/16 22:00 128 04/09/16 20:00 105 04/09/16 20:00 97.8 105 24 107/57 90 04/09/16 19:36 99 Nasal Cannula 2.00 04/09/16 18:08 104 04/09/16 16:00 100 04/09/16 16:00 97.9 99 25 107/57 97 04/09/16 14:15 101 Intake & Output 04/10/16 04/10/16 07:00 19:00 Intake Total 51 ml Output Total 1200 ml Balance -1149 ml Intake Oral 0 ml IV Total 51 ml Output Urine Total 1200 ml # Bowel Movements 0 Physical Exam CONSTITUTIONAL/GENERAL: This is a cachectic, critically ill patient, in no apparent distress. TUBES/LINES/DRAINS: right IJ central line, PIV right, Valenzuela, SCDs. SKIN: No jaundice, rashes, or lesions. Ecchymoses on upper extremities. No wounds seen anteriorly. Skin temperature appropriate. Not diaphoretic. ENT: Hard of hearing. Nose without bleeding or purulent drainage. Poor dentition. CARDIOVASCULAR: intermittent tachycardia. RESPIRATORY/CHEST: Symmetric, unlabored respirations. Few scattered faint crackles. GASTROINTESTINAL: Abdomen soft, non-tender, nondistended. No guarding. Bowel sounds present. GENITOURINARY: Without palpable bladder distension. Valenzuela catheter in place. MUSCULOSKELETAL: Extremities without clubbing, cyanosis, or edema. No mottling or clubbing. NEUROLOGICAL: Lethargic, less communicative. Moves all extremities. PSYCHIATRIC: No obvious anxiety/depression. no apparent hallucinations or other psychotic thought process. . (JARRELL SIFUENTES-Gi) Diagnostic Tests Laboratory Laboratory Tests Test 04/07/16 04/08/16 04/09/16 04/10/16 15:40 03:45 02:30 04:10 White Blood Count 7.1 TH/MM3 7.4 TH/MM3 9.3 TH/MM3 (4.0-11.0) (4.0-11.0) (4.0-11.0) Red Blood Count 3.05 MIL/MM3 2.88 MIL/MM3 3.14 MIL/MM3 (4.50-5.90) (4.50-5.90) (4.50-5.90) Hemoglobin 9.4 GM/DL 9.2 GM/DL 9.7 GM/DL (13.0-17.0) (13.0-17.0) (13.0-17.0) Hematocrit 28.0 % 26.6 % 28.7 % (39.0-51.0) (39.0-51.0) (39.0-51.0) Mean Corpuscular Volume 91.9 FL 92.1 FL 91.3 FL (80.0-100.0) (80.0-100.0) (80.0-100.0) Mean Corpuscular Hemoglobin 30.7 PG 31.7 PG 30.9 PG (27.0-34.0) (27.0-34.0) (27.0-34.0) Mean Corpuscular Hemoglobin 33.4 % 34.5 % 33.9 % Concent (32.0-36.0) (32.0-36.0) (32.0-36.0) Red Cell Distribution Width 15.3 % 15.2 % 15.1 % (11.6-17.2) (11.6-17.2) (11.6-17.2) Platelet Count 185 TH/MM3 177 TH/MM3 186 TH/MM3 (150-450) (150-450) (150-450) Mean Platelet Volume 9.5 FL 9.6 FL 10.3 FL (7.0-11.0) (7.0-11.0) (7.0-11.0) Random Cortisol 46.5 MCG/DL Neutrophils (%) (Auto) % (16.0-70.0) 92.6 % (16.0-70.0) Lymphocytes (%) (Auto) % (9.0-44.0) 1.6 % (9.0-44.0) Monocytes (%) (Auto) % (0.0-8.0) 5.8 % (0.0-8.0) Eosinophils (%) (Auto) % (0.0-4.0) 0.0 % (0.0-4.0) Basophils (%) (Auto) % (0.0-2.0) 0.0 % (0.0-2.0) Neutrophils # (Auto) TH/MM3 8.6 TH/MM3 (1.8-7.7) (1.8-7.7) Lymphocytes # (Auto) TH/MM3 0.1 TH/MM3 (1.0-4.8) (1.0-4.8) Monocytes # (Auto) TH/MM3 (0-0.9) 0.5 TH/MM3 (0-0.9) Eosinophils # (Auto) TH/MM3 (0-0.4) 0.0 TH/MM3 (0-0.4) Basophils # (Auto) TH/MM3 (0-0.2) 0.0 TH/MM3 (0-0.2) CBC Comment AUTO DIFF DIFF FINAL Differential Total Cells 100 Counted Neutrophils % (Manual) 61 % (16-70) Band Neutrophils % 34 % (0-6) Lymphocytes % 3 % (9-44) Monocytes % 2 % (0-8) Neutrophils # (Manual) 7.0 TH/MM3 (1.8-7.7) Differential Comment FINAL DIFF MANUAL Platelet Estimate NORMAL (NORMAL) Platelet Morphology Comment NORMAL (NORMAL) Ovalocytes 1+ (NORMAL) Sodium Level 145 MEQ/L 147 MEQ/L (136-145) (136-145) Potassium Level 3.3 MEQ/L 3.6 MEQ/L (3.5-5.1) (3.5-5.1) Chloride Level 111 MEQ/L 111 MEQ/L (98-107) (98-107) Carbon Dioxide Level 25.9 MEQ/L 26.8 MEQ/L (21.0-32.0) (21.0-32.0) Anion Gap 8 MEQ/L (5-15) 9 MEQ/L (5-15) Blood Urea Nitrogen 29 MG/DL (7-18) 29 MG/DL (7-18) Creatinine 0.85 MG/DL 0.84 MG/DL (0.60-1.30) (0.60-1.30) Estimat Glomerular Filtration 85 ML/MIN (>89) 86 ML/MIN (>89) Rate Random Glucose 31 MG/DL 175 MG/DL (74-106) (74-106) Calcium Level 7.8 MG/DL 7.8 MG/DL (8.5-10.1) (8.5-10.1) Total Bilirubin 0.4 MG/DL 0.8 MG/DL (0.2-1.0) (0.2-1.0) Aspartate Amino Transf 99 U/L (15-37) 69 U/L (15-37) (AST/SGOT) Alanine Aminotransferase 32 U/L (12-78) 45 U/L (12-78) (ALT/SGPT) Alkaline Phosphatase 71 U/L (45-117) 79 U/L (45-117) Total Protein 5.2 GM/DL 4.9 GM/DL (6.4-8.2) (6.4-8.2) Albumin 2.0 GM/DL 2.0 GM/DL (3.4-5.0) (3.4-5.0) Urine Color YELLOW (YELLW/STRAW) Urine Turbidity HAZY (CLEAR) Urine pH 5.0 (5.0-8.5) Urine Specific [place] 1.022 (1.002-1.035) Urine Protein 30 mg/dL (NEG-TRACE) Urine Glucose (UA) NEG mg/dL (NEG) Urine Ketones NEG mg/dL (NEG) Urine Occult Blood LARGE (NEG) Urine Nitrite NEG (NEG) Urine Bilirubin NEG (NEG) Urine Urobilinogen LESS THAN 2.0 MG/DL (LESS THAN 2.0) Urine Leukocyte Esterase SMALL (NEG) Urine RBC 108 /hpf (0-3) Urine WBC 5 /hpf (0-5) Urine Bacteria OCC /hpf (NONE) Urine Mucus FEW /lpf (OCC) Microscopic Urinalysis Comment CATH-CULTURE IND Magnesium Level 1.8 MG/DL (1.5-2.5) Test 04/10/16 04/10/16 12:32 13:10 Blood Gas Puncture Site RT RADIAL Blood Gas Patient Temperature 98.6 Blood Gas HCO3 24 mmol/L (22-26) Blood Gas Base Excess 0.5 mmol/L (-2-2) Blood Gas Oxygen Saturation 92 % (90-100) Arterial Blood pH 7.48 (7.380-7.420) Arterial Blood Partial 32 mmHg (38-42) Pressure CO2 Arterial Blood Partial 73 mmHg Pressure O2 (61-120) Arterial Blood Oxygen Content 13.2 Vol % (12.0-20.0) Arterial Blood 0.5 % (0-4) Carboxyhemoglobin Arterial Blood Methemoglobin 0.8 % (0-2) Blood Gas Hemoglobin 10.2 G/DL (12.0-16.0) Oxygen Delivery Device NASAL CANNULA Blood Gas Liter Flow 4 L/M Ammonia 14 MCMOL/L (11-32) (JARRELL SIFUENTES) Result Diagram: 04/10/16 0410 04/10/16 0410 Microbiology Microbiology Date/Time Procedure Status Source Growth 04/09/16 02:30 Urine Culture - Preliminary Resulted Urine Catheterized Urine NO GROWTH IN 24 HOURS. Imaging Last Impressions Chest X-Ray 04/10/16 0600 Signed Impressions: Service Date/Time: Sunday, April 10, 2016 05:19 - CONCLUSION: Slight worsening pulmonary edema and left lung base consolidation not clearly seen previously. Pleural effusions have not changed. Cyrus Mcdonough MD Chest Ultrasound 04/09/16 0000 Signed Impressions: Service Date/Time: March 18:47 - CONCLUSION: Small right pleural effusion. No thoracentesis lucio made. Fabien Simental MD Head CT 04/08/16 0330 Signed Impressions: Service Date/Time: Friday, April 08, 2016 04:46 - CONCLUSION: No evidence of acute intracranial findings Fabien Randall MD Chest CT 04/07/16 0000 Signed Impressions: Service Date/Time: Thursday, April 07, 2016 15:15 - CONCLUSION: 1. Bilateral lower lobe atelectasis versus pneumonia. 2. Moderate bilateral effusions Lui Guerra MD Procedures * 04/06/16 - right IJ central line placed. * 04/05/16 - emergent cardiac cath with angioplasty and unsuccessful stenting of 3 vessel disease. . (JARRELL SIFUENTES) Assessment and Plan Disease Oriented Problem List: (1) STEMI (ST elevation myocardial infarction) Comment: s/p cardiac cath with angioplasty, unsuccessful stenting of 3 vessel disease. . (2) Acute on chronic respiratory failure with hypoxemia (3) Diabetes mellitus type 2, uncontrolled (4) Pneumonia Comment: aspiration pneumonia Symptom Scale: (1) Chest pain 0-10 Scale: 0 (2) Dysphagia 0-10 Scale: 0 Comment: Passed swallow eval, eating small amounts. . (3) Lethargy 0-10 Scale: Unable to quantify Pertinent Non-Medical Issues Psychosocial: . Spiritual: Yarsanism sonu. Legal: No known written advanced directives. According to [place] statutes, health care proxy decision-making falls to the patient's spouse. Ethical issues impacting care: No known concerns at this time. . Important Contacts * Az Hartley, spouse/HCP: [phone] * Millie Hartley, daughter: [phone] lives in [place], [place] . Prognosis Mr. Hartley is an 89-year-old admitted with STEMI s/p angioplasty and unsuccessful stenting of 3 vessel disease who remains in ICU on pressor support and failed swallow evaluation. He is cachectic with chronic aspiration. He is high risk for further decline. . Code Status: Full Code Plan * No known written advanced directives. According to [place] statutes, health care proxy decision-making falls to the patient's spouse. * FULL CODE * Family reportedly elected NO CODE, however rescinded per nursing staff. Family desires continued aggressive care. * Discussed with Dr. Pimentel. * SYMPTOMS: Dysphagia: passed swallow evaluation, eating small amounts. Chest pain: has resolved. Denies pain today. Lethargy: uncertain etiology, CT head and EEG pending. * Palliative care will continue to follow throughout hospital course to assist with symptom management and further clarification of treatment goals. . (JARRELL SIFUENTES) Attestation To help prompt me to consider important information that might be impacting today's encounter and assessment, information from prior notes written by myself or my colleagues may have been "brought forward" into today's note. My signature on this note, however, is an attestation that I personally performed the exam, history, and/or decision-making noted today, and, unless otherwise indicated, the interactions with patient, family, and staff as well as the review of records all occurred today. I also attest that the listed assessment and stated plan reflect my best clinical judgment today based on the combination of historical information, prior notes, and today's exam/ interactions. When time spent is documented, it refers only to time spent today by the signer, or if indicated, combined time spent today by collaborating physician/nurse practitioner. . (JARRELL SIFUENTES) Collaborating MD Comments Chart reviewed. Case discussed with palliative care COMPOUNDING TECHNICIAN. Above COMPOUNDING TECHNICIAN note reviewed and I concur. . (Toni Cooper MD) JARRELL SIFUENTES Apr 10, 2016 14:32 Toni Cooper MD May 10, 2016 08:08
[2016-04-10] MEDS: MAGNESIUM SULFATE 1 GM PREMIX 100 ML IV SCH ×2 (14:52→14:53)
--- NOTE | 2016-04-10 15:05 | HHI.IDPN ---
Note Infectious Disease Note Patient is somnolent and not arousing for me. Notes reviewed. RN reports he was awake earlier. Ct of the brain today shows no acute lesions. Afebrile. This is a 89-year-old white male who presented to emergency department on 04/05/2016, the patient was diagnosed with ST elevation myocardial infarction and fever. PAST MEDICAL HISTORY 1. Hypercholesteremia 2. Diabetes mellitus 3. Gastroesophageal reflux disease. 4. Laminectomy L4/L5. ALLERGIES PENICILLIN AMOXICILLIN FLAGYL MEDICATIONS: Current Medications Medications (Trade) Dose Ordered Sig/Jodie Route PRN Reason Start Time Stop Time Status Last Admin Dose Admin IV Flush (NS Flush) 2 ml UNSCH PRN IVF FLUSH AFTER USING IV ACCESS 04/05/16 22:00 04/07/16 09:02 IV Flush (NS Flush) 2 ml BID IVF 04/06/16 09:00 04/10/16 09:00 Acetaminophen (Tylenol) 325 mg Q4H PRN PO PAIN SCALE 1 TO 5 04/05/16 22:00 Morphine Sulfate (Morphine Inj) 2 mg Q30M PRN IV PUSH PAIN GREATER THAN 5. NOTIFY MD 04/05/16 22:00 04/06/16 20:45 Aspirin (Aspirin) 325 mg DAILY PO 04/06/16 09:00 04/10/16 10:25 Atropine Sulfate (Atropine Inj) 0.5 mg UNSCH PRN IV VAGAL REPONSE 04/05/16 22:00 Ondansetron HCl (Zofran Inj) 4 mg Q4H PRN IV NAUSEA 04/05/16 22:00 Atorvastatin Calcium (Lipitor) 40 mg HS PO 04/06/16 21:00 04/09/16 21:10 Miscellaneous Information Patient in critical care unit? Ass... [id number] XX 04/05/16 23:15 04/06/16 07:42 Chlorhexidine Gluconate 3 pack 3 pack UNSCH PRN TOP HYGIENIC CARE 04/05/16 23:15 04/10/16 23:12 Norepinephrine Bitartrate (Levophed-Dextrose Drip) 250 ml @ 0 mls/hr TITRATE IV 04/06/16 01:45 04/06/16 20:33 Docusate Sodium (Colace Liq) 100 mg Q12HR PO 04/07/16 21:00 04/09/16 08:43 Dextrose (D50w (Vial) Inj) 25 ml UNSCH PRN IV HYPOGLYCEMIA-SEE COMMENTS 04/09/16 06:45 04/10/16 04:46 Glucagon (Glucagon Inj) 1 mg UNSCH PRN IM/SQ HYPOGLYCEMIA-SEE COMMENTS 04/09/16 06:45 Fluticasone/ Vilanterol (Breo Ellipta 100-25 Inh) 1 puff DAILY INH 04/10/16 09:00 04/10/16 09:00 Furosemide (Lasix Inj) 20 mg BID@,18 IV PUSH 04/10/16 18:00 Potassium Chloride (KCl) 20 meq DAILY@18 PO 04/10/16 18:00 Famotidine (Pepcid) 10 mg BID PO 04/10/16 21:00 Miscellaneous (Pill Splitter) 1 ea UNSCH PRN OTHER SEE LABEL COMMENTS 04/10/16 21:00 SOCIAL HISTORY: No tobacco, no alcohol. No illicit drugs. FAMILY HISTORY Noncontributory. REVIEW OF SYSTEMS Review of systems unable to obtain. OBJECTIVE: Vital Signs Date Time Temp Pulse Resp B/P Pulse Ox O2 Delivery O2 Flow Rate FiO2 04/10/16 10:00 108 04/10/16 08:00 97 04/10/16 07:41 92 Nasal Cannula 4.00 04/10/16 06:00 108 04/10/16 04:00 102 04/10/16 04:00 79.3 102 22 137/57 93 04/10/16 02:00 104 04/10/16 00:00 101 04/10/16 00:00 97.4 101 25 128/86 93 04/09/16 22:00 128 04/09/16 20:00 105 04/09/16 20:00 97.8 105 24 107/57 90 04/09/16 19:36 99 Nasal Cannula 2.00 04/09/16 18:08 104 04/09/16 16:00 100 04/09/16 16:00 97.9 99 25 107/57 97 04/09/16 04/09/16 04/10/16 15:00 23:00 07:00 Intake Total 363 ml 5 ml 46 ml Output Total 275 ml 550 ml 650 ml Balance 88 ml -545 ml -604 ml Intake Oral 300 ml 0 ml IV Total 63 ml 5 ml 46 ml Output Urine Total 275 ml 550 ml 650 ml # Bowel Movements 0 0 Laboratory Tests Test 04/10/16 04:10 White Blood Count 9.3 TH/MM3 Red Blood Count 3.14 MIL/MM3 Hemoglobin 9.7 GM/DL Hematocrit 28.7 % Mean Corpuscular Volume 91.3 FL Mean Corpuscular Hemoglobin 30.9 PG Mean Corpuscular Hemoglobin 33.9 % Concent Red Cell Distribution Width 15.1 % Platelet Count 186 TH/MM3 Mean Platelet Volume 10.3 FL Neutrophils (%) (Auto) 92.6 % Lymphocytes (%) (Auto) 1.6 % Monocytes (%) (Auto) 5.8 % Eosinophils (%) (Auto) 0.0 % Basophils (%) (Auto) 0.0 % Neutrophils # (Auto) 8.6 TH/MM3 Lymphocytes # (Auto) 0.1 TH/MM3 Monocytes # (Auto) 0.5 TH/MM3 Eosinophils # (Auto) 0.0 TH/MM3 Basophils # (Auto) 0.0 TH/MM3 CBC Comment DIFF FINAL Differential Comment Laboratory Tests Test 04/10/16 04/10/16 04:10 13:10 Sodium Level 147 MEQ/L Potassium Level 3.6 MEQ/L Chloride Level 111 MEQ/L Carbon Dioxide Level 26.8 MEQ/L Anion Gap 9 MEQ/L Blood Urea Nitrogen 29 MG/DL Creatinine 0.84 MG/DL Estimat Glomerular Filtration 86 ML/MIN Rate Random Glucose 175 MG/DL Calcium Level 7.8 MG/DL Magnesium Level 1.8 MG/DL Total Bilirubin 0.8 MG/DL Aspartate Amino Transf 69 U/L (AST/SGOT) Alanine Aminotransferase 45 U/L (ALT/SGPT) Alkaline Phosphatase 79 U/L Total Protein 4.9 GM/DL Albumin 2.0 GM/DL Ammonia 14 MCMOL/L Microbiology Date/Time Procedure Status Source Growth 04/09/16 02:30 Urine Culture - Preliminary Resulted Urine Catheterized Urine NO GROWTH IN 24 HOURS. Microbiology Date/Time Procedure Status Source Growth 04/05/16 19:15 Aerobic Blood Culture - Preliminary Resulted Blood Peripheral Staph Sp Coagulase Negative 04/05/16 19:15 Anaerobic Blood Culture - Preliminary Resulted Blood Peripheral NO GROWTH IN 1 DAY 04/05/16 19:30 Aerobic Blood Culture - Preliminary Resulted Blood Peripheral NO GROWTH IN 3 DAYS 04/05/16 19:30 Anaerobic Blood Culture - Preliminary Resulted Blood Peripheral NO GROWTH IN 3 DAYS PHYSICAL EXAMINATION: IN GENERAL: This is a slender male who appears well-nourished. He is in no acute distress. Somnolent. HEAD, EYES, EARS, NOSE, AND THROAT: Head is atraumatic. Extraocular movements grossly intact, pupils reactive to light without icterus. Oropharynx, partially edentulous with several missing teeth at the anterior aspect of the upper jaw. NECK: Supple. No adenopathy. LUNGS: Rhonchi at both bases. HEART: Tachycardiac. Normal S1-S2. ABDOMEN: Bowel sounds present, soft, no tenderness appreciated. EXTREMITIES: No clubbing or cyanosis or edema. SKIN: No rash. NEUROLOGIC: Patient appears alert. Nonfocal. IMPRESSION Previous Sepsis. Previous Aspiration pneumonia. Could be repeatedly aspirating. Previous Positive blood culture with staph coagulase negative in 03/25 bottles suggesting contamination. STEMI No clear evidence of ongoing infection but has abnormal CXR. RECOMMENDATIONS: 1. D/C Levaquin 2. Monitor temperature and white blood cell count. Both currently normal. 3. Monitor clinical status. Ottoniel Dominique MD Apr 10, 2016 15:05
[2016-04-10] MEDS ORDERED: GLYCERIN ADULT 2 GM SUPP RECTAL ONE (16:00)
[2016-04-10] MEDS ORDERED: LEVEMIR SQ (16:33)
[2016-04-10] MEDS ORDERED: SIMV20TA PO (16:34)
[2016-04-10] MEDS ORDERED: NOVOLOGP2 SQ (16:36)
[2016-04-10] MEDS: INSULIN ASPART 1,000 UNITS/10 ML VIAL SQ SCH (17:00)
[2016-04-10] MEDS ORDERED: FUROSEMIDE 20 MG/2 ML VIAL IV PUSH SCH (18:00)
[2016-04-10] MEDS: POTASSIUM CHLORIDE 20 MEQ CONTROLLED RELEASE TAB PO SCH (18:00)
--- NOTE | 2016-04-10 18:14 | HHI.PR ---
Subjective Remarks Had a Choking episode with aspiration , and on O2 at 5 L. seems confused.Lethargic. Objective Vital Signs Date Time Temp Pulse Resp B/P Pulse Ox O2 Delivery O2 Flow Rate FiO2 04/10/16 18:00 97 04/10/16 16:00 97 04/10/16 14:00 97 04/10/16 10:00 108 04/10/16 08:00 97 04/10/16 07:41 92 Nasal Cannula 4.00 04/10/16 06:00 108 04/10/16 04:00 102 04/10/16 04:00 79.3 102 22 137/57 93 04/10/16 02:00 104 04/10/16 00:00 101 04/10/16 00:00 97.4 101 25 128/86 93 04/09/16 22:00 128 04/09/16 20:00 105 04/09/16 20:00 97.8 105 24 107/57 90 04/09/16 19:36 99 Nasal Cannula 2.00 I/O 04/09/16 04/09/16 04/09/16 04/10/16 04/10/16 04/10/16 07:00 15:00 23:00 07:00 15:00 23:00 Intake Total 93 ml 363 ml 5 ml 46 ml 350 ml Output Total 300 ml 275 ml 550 ml 650 ml Balance -207 ml 88 ml -545 ml -604 ml 350 ml Intake Oral 60 ml 300 ml 0 ml 50 ml IV Total 33 ml 63 ml 5 ml 46 ml 300 ml Output Urine Total 300 ml 275 ml 550 ml 650 ml # Bowel Movements 0 0 Result Diagram: 04/10/1640904/10/16409 Objective Remarks GENERAL: This is an emaciated looking elderly man who is in bed, pale and mildly dyspneic at rest. HEENT: Head normocephalic. Pupils reactive. Tongue is dry and throat injected. Ears, no inflammation. NECK: Supple. No bruits, no thyroid enlargement. CHEST: Equal movements with wheezes bilaterally, prolonged expirations, crackles at the lung bases. HEART: The heart sounds are irregular S1 and S2. No murmur. ABDOMEN: Soft, protuberant. No masses, no organomegaly or tenderness. Bowel sounds are active EXTREMITIES: Muscle wasting and diminished pulses. Reflexes 1+. The patient does move his legs but weak.no edema SKIN: Revealed no definite lesions. Assessment and Plan Assessment and Plan IMPRESSION 1. ST elevation myocardial infarction 2. Chronic respiratory failure. 3. Basilar pneumonia and hypoxemia. 4. Chronic obstructive pulmonary disease 5. Diabetes mellitus type 2. 6. Plan : 1. Continue antibiotics. 2. Suction throat and keep NPO. 3. Nebs tid , duoneb. 4. CBC,BMP in am. 5. PT evaluation. 6.Family requests DNR. 7. Add Solumedrol 40 mg bid. 8. Consider tube feeds. Gabriel Campos MD Apr 10, 2016 18:14
[2016-04-10] MEDS ORDERED: PILL SPLITTER OTHER PRN (21:00)
[2016-04-10] MEDS: FAMOTIDINE 20 MG TAB PO SCH (21:15)
[2016-04-10] MEDS: ATORVASTATIN 40 MG TAB PO SCH (21:16)
[2016-04-10] MEDS: methylPREDNISolone SOD SUCC 40 MG/1 ML VIAL IV SCH (21:16)
[2016-04-11] VITALS (10 sets, daily range): BP systolic 90–104; BP diastolic 52–66; PULSE 91–108; RESP 18–24; TEMP 96.9–98.2; O2SAT 93–98
[2016-04-11] MEDS: RESP: ALBUTEROL 2.5 MG/IPRATROPIUM 0.5 MG NEB (SCH) NEB ×4 (03:11→21:14)
[2016-04-11 04:02] LABS: HEMATOCRIT 28.6 % (39.0-51.0); MEAN CELL VOLUME 92.3 FL (80.0-100.0); MEAN CORPUSCULAR HEMOGLOBIN 31.6 PG (27.0-34.0); MEAN CORPUSCULAR HGB CONC 34.2 % (32.0-36.0); PLATELET COUNT 164 TH/MM3 (150-450); RED CELL DISTRIBUTION WIDTH 15.6 % (11.6-17.2); REVIEW FLAG FINAL; WHITE BLOOD COUNT 5.3 TH/MM3 (4.0-11.0)
[2016-04-11 04:14] LABS: BICARBONATE 27.6 MEQ/L (21.0-32.0); MAGNESIUM 2.2 MG/DL (1.5-2.5); POTASSIUM 4.1 MEQ/L (3.5-5.1)
[2016-04-11 04:17] LABS: INDIRECT BILIRUBIN 0.6 MG/DL (0.0-0.8); TOTAL BILIRUBIN ADULT 0.9 MG/DL (0.2-1.0)
[2016-04-11] MEDS: INSULIN ASPART SUPPLEMENTAL SCALE SQ SCH ×2 (06:16→20:00)
[2016-04-11] MEDS: FAMOTIDINE 20 MG TAB PO SCH ×2 (08:57→22:30)
[2016-04-11] MEDS: INSULIN ASPART 1,000 UNITS/10 ML VIAL SQ SCH ×2 (08:57→18:18)
[2016-04-11] MEDS: DOCUSATE SODIUM 100 MG/10 ML UDC PO SCH ×2 (08:57→22:31)
[2016-04-11] MEDS: ASPIRIN 325 MG TAB PO SCH (08:57)
[2016-04-11] MEDS: FUROSEMIDE 20 MG/2 ML VIAL IV PUSH SCH (08:57)
[2016-04-11] MEDS: methylPREDNISolone SOD SUCC 40 MG/1 ML VIAL IV SCH (08:57)
[2016-04-11] MEDS: SODIUM CHLORIDE 0.9% FLUSH 5 ML FLUSH IVF SCH ×2 (08:59→22:31)
[2016-04-11] MEDS: FLUTICASONE 100 MCG/VILANTEROL 25 MCG INHALER INH SCH (09:00)
--- NOTE | 2016-04-11 10:27 | RADRPT ---
EXAM DATE/TIME: 04/11/2016 09:29 [facility] COMPARISON: CHEST SINGLE AP, April 10, 2016, 12:05. INDICATIONS : Short of Breath, Cough. MEDICAL HISTORY : Chronic obstructive pulmonary disease. Congestive heart failure. Cardiovascular disease. Diabete s mellitus type 2. SURGICAL HISTORY : Laminectomy. ENCOUNTER: Subsequent ACUITY: 1 week PAIN SCORE: 0/10 LOCATION: Bilateral chest FINDINGS: Portable AP view of the chest demonstrates a normal-sized cardiac silhouette. Right IJ line tip is in the SVC. There is a moderate size left and small right basilar pleural-parenchymal opacity, stable f rom the prior study. No pneumothorax is visualized. CONCLUSION: Stable chest x-ray with moderate left and small right basilar opacity consistent with pleural effusio ns with associated volume loss and/or consolidation. Fabien Yoder MD on April 11, 2016 at 10:24 Board Certified Radiologist. This report was verified electronically.
[2016-04-11] MEDS ORDERED: INSULIN ASPART 1,000 UNITS/10 ML VIAL SQ SCH (11:00)
--- NOTE | 2016-04-11 13:44 | HHI.CCPN ---
Subjective Remarks/Hospital Course 04/06: 89 y/o fragile, elderly man developed worsening SOB. In ED EKG showed possible STEMI. Alert called and PCI LAD performed. He was febrile to 103 at scene and has leukocytosis on arrival. CXR with khadijah lower lobe infiltrates. Remains hypoxemic requiring NRBM to maintain saturation > 90%. Antibiotic load in ED. Many allergies. Diabetes poorly controlled. 04/07: Sitting up in bed on 4 L nasal cannula. Does not appear to be any acute distress. On Levophed 1 david per minute currently. Passed swallow eval. 1 unit PRBCs ordered this morning for hemoglobin 7.9 04/08: Fell out of bed last night. Head CT negative for bleed. Was hypoglycemic with finger stick glucose in the 30s for which she received D50. This morning he is drowsy but easily arousable. Levemir held this morning. Has remained off Levophed since yesterday. 04/09: Hypoglycemic last night. Levemir being discontinued.. Remains off pressors. On nasal cannula. 04/10: We consulted secondary to altered mental status. After physical therapy today, patient became unresponsive. On my examination will open eyes patient will arouse and follow commands in all 4 extremities. However quite somnolent. Was restless overnight per documentation from cardiology. He revealed respiratory alkalosis/acute. Stat CT head pending. Subjective: 04/11: Mentation much improved. Off all sedatives. CT head revealed no acute findings. Chronic microvascular changes. Ate breakfast. Exercise. Still weak. Likely continues chronically aspirating. Objective Vital Signs Date Time Temp Pulse Resp B/P Pulse Ox O2 Delivery O2 Flow Rate FiO2 04/11/16 08:09 95 Nasal Cannula 4.00 04/11/16 06:00 97 04/11/16 04:00 97.4 20 98/62 04/07/16 20:30 21 Intake and Output 04/10/16 04/10/16 04/11/16 08:00 16:00 00:00 Intake Total 46 ml 350 ml 391 ml Output Total 650 ml 1100 ml Balance -604 ml 350 ml -709 ml Result Diagram: 04/11/16 0310 04/11/16 0310 Other Results Microbiology Date/Time Procedure Status Source Growth 04/09/16 02:30 Urine Culture - Final Complete Urine Catheterized Urine NO GROWTH IN 48 HOURS. Imaging Last Impressions Chest X-Ray 04/11/16 0800 Signed Impressions: Service Date/Time: Monday, April 11, 2016 09:29 - CONCLUSION: Stable chest x-ray with moderate left and small right basilar opacity consistent with pleural effusions with associated volume loss and/or consolidation. Fabien Yoder MD Head CT 04/10/16 0000 Signed Impressions: Service Date/Time: Sunday, April 10, 2016 13:51 - CONCLUSION: Extensive vertebrobasilar calcifications are noted, negative for acute process. Khris Clemens MD FACR Chest Ultrasound 04/09/16 0000 Signed Impressions: Service Date/Time: March 18:47 - CONCLUSION: Small right pleural effusion. No thoracentesis lucio made. Fabien Simental MD Chest CT 04/07/16 0000 Signed Impressions: Service Date/Time: Thursday, April 07, 2016 15:15 - CONCLUSION: 1. Bilateral lower lobe atelectasis versus pneumonia. 2. Moderate bilateral effusions Lui Guerra MD Objective Remarks GEN: 89-year-old male, Frail, elderly currently resting in bed in no acute distress with mouth open Head: Atraumatic, normocephalic Neck: Chronic stiffness. Airway widely patent. Lungs: Good air entry bilaterally, bibasilar crackles Chest: Markedly increased AP diameter. Heart: NL S1S2, no m,r. Neck veins flat when supine. Abdomen: Soft, no guarding, nontender. BS active. Extremities: Chronically edematous lower legs with anasarca. Well perfused. Neuro: Arousable falls asleep. Will answer questions appropriately and follow commands with all 4 extremities. Urinary Catheter: No Assessment to: Continue Vascular Central Line Catheter: Yes Assessment to: Continue A/P Problem List: (1) STEMI (ST elevation myocardial infarction) ICD Code: I21.3 Status: Acute (2) Acute on chronic respiratory failure with hypoxemia ICD Code: J96.21 Status: Acute (3) Pneumonia ICD Code: J18.9 Status: Acute (4) Diabetes mellitus type 2, uncontrolled ICD Code: E11.65 Status: Chronic Assessment and Plan Neuro/Psych: Acute encephalopathy Stat CT the head 04/10 revealed chronic microvascular changes. No acute intracranial findings. ABG revealed a respiratory alkalosis. Blood sugar was 314. Acetaminophen only for pain/fever No sedatives. CV: Three-vessel coronary disease Hypertension Dyslipidemia Pulmonary hypertension 2-D echocardiogram revealed EF 40-45%. Akinesis of the mid/distal anteroseptal anterior and apical regions. Moderate TR. DERICK 62 mmHg Cardiac catheterization 04/05 revealed three-vessel coronary disease. EF 20-25% . Akinesis of apex count inferior anterior brantley mid to distal region. Angioplasty of the proximal mid LAD. Unsuccessful stenting. Currently in aspirin 81 mg daily. Plavix 70 and it has been discontinued by cardiology/Dr. Flores. Continue Lipitor 40 mg by mouth daily. On simvastatin 60 mg daily at home. On lisinopril 5 mg by mouth daily at home for hypertension. Continue Lasix 20 mg IV once day. Resp: Acute respiratory insufficiency secondary to pulmonary edema/COPD?. Nasal cannula to maintain saturations greater than or equal to 92%. Currently on 5 L nasal cannula. Incentive spirometry while awake Currently on Breo Elipta 100/25 one inhalation daily. Bronchodilator therapy every 6 hours and as needed Solu-Medrol 40 mg IV daily ABG revealed acute respiratory alkalosis 04/10 GI: Gastroesophageal reflux disease Currently on Pepcid 10 mg by mouth twice a day. On Prilosec 20 mg by mouth daily at home. Discussed with family. Patient does not want PEG tube. Family on board. : Nicolas if indicated for accurate I's and O's in a critically ill patient Endo: Diabetes mellitus Currently nOVULOG 2 units 3 times a day sliding scale insulin with Accu-Cheks to maintain euglycemia. Episodic hypoglycemia while on Lantus. This has been discontinued. Blood sugar currently greater than 300 Renal: Creatinine currently within normal limits. Monitor I's and O's. Heme: Normocytic anemia Monitor CBC daily. ID: Staph hominis bacteremia/likely contaminant Treated with aztreonam and Levaquin. Both these antibiotics have been discontinued by infectious disease FEN: Hypernatremia Hypo-magnesium Replace electrolytes as clinically indicated. MSK: PT evaluate and treat Access - Right IJ CVL placed 04/05/2016 Prophylaxis - GI - Pepcid - DVT - SCD/Lovenox subcutaneous Critical Care: The total care time was 45 minutes. Time to perform other separately billable procedures was not included in the critical care time. Patient is stable from a critical care medicine standpoint. We'll assign care to hospitalist in a.m. 04/12. Problem Qualifiers (1) STEMI (ST elevation myocardial infarction): Qualified Code: I21.02 - ST elevation myocardial infarction involving left anterior descending (LAD) coronary artery (2) Pneumonia: Qualified Code: J18.1 - Pneumonia of left lower lobe due to infectious organism (3) Diabetes mellitus type 2, uncontrolled: Qualified Code: E11.8 - Uncontrolled type 2 diabetes mellitus with complication , without long-term current use of insulin Carter Mccracken MD Apr 11, 2016 13:44
[2016-04-11] MEDS: POTASSIUM CHLORIDE 20 MEQ CONTROLLED RELEASE TAB PO SCH (18:18)
[2016-04-11] MEDS: ENOXAPARIN SODIUM 30 MG/0.3 ML SYRINGE SQ SCH (18:18)
[2016-04-11] MEDS: ATORVASTATIN 40 MG TAB PO SCH (22:31)
[2016-04-12] VITALS (10 sets, daily range): BP systolic 98–128; BP diastolic 51–62; PULSE 98–105; RESP 18–22; TEMP 97.5–98.3; O2SAT 85–98
--- NOTE | 2016-04-12 03:18 | RADRPT ---
EXAM DATE/TIME: 04/12/2016 01:44 [facility] COMPARISON: CHEST SINGLE AP, April 11, 2016, 9:29. INDICATIONS : Shortness of breath, possible pulmonary disease. MEDICAL HISTORY : Chronic obstructive pulmonary disease. Congestive heart failure. Cardiovascular disease. SURGICAL HISTORY : Laminectomy ENCOUNTER: Subsequent ACUITY: 1 week PAIN SCORE: Non-responsive. LOCATION: Bilateral chest FINDINGS: There is persistent consolidation in the left lower lobe with loss of delineation of the entire left hemidiaphragm. Patchy infiltrates in the right lower lung are also stable. Blunting of left costoph renic angle suggests coexistent left pleural effusion. Overall appearance is very similar in severit y to yesterday's exam. Right internal jugular catheter tip projects over the proximal superior vena cava. CONCLUSION: Persistent, stable, bilateral lower lung infiltrates, left lower lobe consolidation, and left pleural effusion. Jonathan Grajeda MD on April 12, 2016 at 3:10 Board Certified Radiologist. This report was verified electronically.
[2016-04-12] MEDS: RESP: ALBUTEROL 2.5 MG/IPRATROPIUM 0.5 MG NEB (SCH) NEB ×4 (03:20→21:22)
[2016-04-12 06:08] LABS: AUTOMATED NEUTROPHIL # 8.1 TH/MM3 (1.8-7.7); HEMATOCRIT 29.1 % (39.0-51.0); HEMO FLAGS DIFF FINAL; LYMPH % 1.5 % (9.0-44.0); LYMPHOCYTE # 0.1 TH/MM3 (1.0-4.8); MEAN CELL VOLUME 94.9 FL (80.0-100.0); MEAN CORPUSCULAR HEMOGLOBIN 30.9 PG (27.0-34.0); MEAN CORPUSCULAR HGB CONC 32.5 % (32.0-36.0); MONO % 5.6 % (0.0-8.0); NEUT % 92.9 % (16.0-70.0); PLATELET COUNT 203 TH/MM3 (150-450); RED BLOOD COUNT 3.07 MIL/MM3 (4.50-5.90); RED CELL DISTRIBUTION WIDTH 15.8 % (11.6-17.2); WHITE BLOOD COUNT 8.7 TH/MM3 (4.0-11.0)
[2016-04-12 06:47] LABS: ALKALINE PHOSPHATASE 104 U/L (45-117); ALT (GPT) 42 U/L (12-78); ANION GAP 15 MEQ/L (5-15); AST (GOT) 32 U/L (15-37); BICARBONATE 22.3 MEQ/L (21.0-32.0); BLOOD UREA NITROGEN 52 MG/DL (7-18); CHLORIDE 103 MEQ/L (98-107); GLOMERULAR FILTRATION RATE 43 ML/MIN (>89); MAGNESIUM 2.3 MG/DL (1.5-2.5); SODIUM (NA) 140 MEQ/L (136-145); TOTAL BILIRUBIN ADULT 0.9 MG/DL (0.2-1.0)
[2016-04-12] MEDS: INSULIN ASPART SUPPLEMENTAL SCALE SQ SCH (08:54)
[2016-04-12] MEDS: INSULIN ASPART 1,000 UNITS/10 ML VIAL SQ SCH ×2 (08:55→17:00)
[2016-04-12] MEDS: DOCUSATE SODIUM 100 MG/10 ML UDC PO SCH ×2 (08:55→21:00)
[2016-04-12] MEDS: ASPIRIN 325 MG TAB PO SCH (08:55)
[2016-04-12] MEDS: FUROSEMIDE 20 MG/2 ML VIAL IV PUSH SCH (08:55)
[2016-04-12] MEDS: FLUTICASONE 100 MCG/VILANTEROL 25 MCG INHALER INH SCH (08:56)
[2016-04-12] MEDS: SODIUM CHLORIDE 0.9% FLUSH 5 ML FLUSH IVF SCH ×2 (08:56→21:00)
[2016-04-12] MEDS: methylPREDNISolone SOD SUCC 40 MG/1 ML VIAL IV SCH (08:56)
[2016-04-12] MEDS: FAMOTIDINE 20 MG TAB PO SCH ×2 (08:58→21:00)
[2016-04-12] MEDS ORDERED: INSULIN ASPART 1,000 UNITS/10 ML VIAL SQ SCH (11:00)
[2016-04-12] MEDS ORDERED: DEXTROSE 50% IN WATER 50 ML VIAL(D50) IV PUSH PRN ×2 (11:45→16:30)
[2016-04-12] MEDS: ENOXAPARIN SODIUM 30 MG/0.3 ML SYRINGE SQ SCH (15:00)
[2016-04-12] MEDS ORDERED: INSULIN NovoLIN REGULAR SUPPLEMENTAL SCALE SQ SCH (16:00)
--- NOTE | 2016-04-12 16:18 | HHI.CCPN ---
Subjective Remarks/Hospital Course 04/06: 89 y/o fragile, elderly man developed worsening SOB. In ED EKG showed possible STEMI. Alert called and PCI LAD performed. He was febrile to 103 at scene and has leukocytosis on arrival. CXR with khadijah lower lobe infiltrates. Remains hypoxemic requiring NRBM to maintain saturation > 90%. Antibiotic load in ED. Many allergies. Diabetes poorly controlled. 04/07: Sitting up in bed on 4 L nasal cannula. Does not appear to be any acute distress. On Levophed 1 david per minute currently. Passed swallow eval. 1 unit PRBCs ordered this morning for hemoglobin 7.9 04/08: Fell out of bed last night. Head CT negative for bleed. Was hypoglycemic with finger stick glucose in the 30s for which she received D50. This morning he is drowsy but easily arousable. Levemir held this morning. Has remained off Levophed since yesterday. 04/09: Hypoglycemic last night. Levemir being discontinued.. Remains off pressors. On nasal cannula. 04/10: We consulted secondary to altered mental status. After physical therapy today, patient became unresponsive. On my examination will open eyes patient will arouse and follow commands in all 4 extremities. However quite somnolent. Was restless overnight per documentation from cardiology. He revealed respiratory alkalosis/acute. Stat CT head pending. Subjective: 04/11: Mentation much improved. Off all sedatives. CT head revealed no acute findings. Chronic microvascular changes. Ate breakfast. Exercise. Still weak. Likely continues chronically aspirating. 04/12: continues to improve clinically. stable for d/c to floor. still with severe hyperglycemia, although this is likely not an acute process, but a chronic one. Objective Vital Signs Date Time Temp Pulse Resp B/P Pulse Ox O2 Delivery O2 Flow Rate FiO2 04/12/16 10:00 105 04/12/16 08:44 96 Nasal Cannula 3.00 04/12/16 08:00 98.2 22 128/62 Intake and Output 04/11/16 04/11/16 04/12/16 08:00 16:00 00:00 Intake Total 77 ml 1020 ml 200 ml Output Total 175 ml 750 ml 300 ml Balance -98 ml 270 ml -100 ml Result Diagram: 04/12/16 0540 04/12/16 0540 Imaging Last Impressions Chest X-Ray 04/11/16 0800 Signed Impressions: Service Date/Time: Monday, April 11, 2016 09:29 - CONCLUSION: Stable chest x-ray with moderate left and small right basilar opacity consistent with pleural effusions with associated volume loss and/or consolidation. Fabien Yoder MD Head CT 04/10/16 0000 Signed Impressions: Service Date/Time: Sunday, April 10, 2016 13:51 - CONCLUSION: Extensive vertebrobasilar calcifications are noted, negative for acute process. Khris Clemens MD FACR Chest Ultrasound 04/09/16 0000 Signed Impressions: Service Date/Time: March 18:47 - CONCLUSION: Small right pleural effusion. No thoracentesis lucio made. Fabien Simental MD Chest CT 04/07/16 0000 Signed Impressions: Service Date/Time: Thursday, April 07, 2016 15:15 - CONCLUSION: 1. Bilateral lower lobe atelectasis versus pneumonia. 2. Moderate bilateral effusions Lui Guerra MD Objective Remarks GEN: 89-year-old male, Frail, elderly currently resting in bed in no acute distress with mouth open Head: Atraumatic, normocephalic Neck: Chronic stiffness. Airway widely patent. Lungs: Good air entry bilaterally, bibasilar crackles Chest: Markedly increased AP diameter. Heart: NL S1S2, no m,r. Neck veins flat when supine. Abdomen: Soft, no guarding, nontender. BS active. Extremities: Chronically edematous lower legs with anasarca. Well perfused. Neuro: Arousable falls asleep. Will answer questions appropriately and follow commands with all 4 extremities. A/P Problem List: (1) STEMI (ST elevation myocardial infarction) ICD Code: I21.3 Status: Acute (2) Acute on chronic respiratory failure with hypoxemia ICD Code: J96.21 Status: Acute (3) Pneumonia ICD Code: J18.9 Status: Acute (4) Diabetes mellitus type 2, uncontrolled ICD Code: E11.65 Status: Chronic Assessment and Plan Neuro/Psych: Acute encephalopathy- resolving. Stat CT the head 04/10 revealed chronic microvascular changes. No acute intracranial findings. ABG revealed a respiratory alkalosis. Blood sugar was 314. Acetaminophen only for pain/fever No sedatives. CV: Three-vessel coronary disease Hypertension Dyslipidemia Pulmonary hypertension 2-D echocardiogram revealed EF 40-45%. Akinesis of the mid/distal anteroseptal anterior and apical regions. Moderate TR. DERICK 62 mmHg Cardiac catheterization 04/05 revealed three-vessel coronary disease. EF 20-25% . Akinesis of apex count inferior anterior brantley mid to distal region. Angioplasty of the proximal mid LAD. Unsuccessful stenting. Currently in aspirin 81 mg daily. Plavix 70 and it has been discontinued by cardiology/Dr. Flores. Continue Lipitor 40 mg by mouth daily. On simvastatin 60 mg daily at home. On lisinopril 5 mg by mouth daily at home for hypertension. Continue Lasix 20 mg IV once day. Resp: Acute respiratory insufficiency secondary to pulmonary edema/COPD?.- resolving. Nasal cannula to maintain saturations greater than or equal to 92%. Currently on 5 L nasal cannula. Incentive spirometry while awake Currently on Breo Elipta 100/25 one inhalation daily. Bronchodilator therapy every 6 hours and as needed Solu-Medrol 40 mg IV daily ABG revealed acute respiratory alkalosis 04/10 GI: Gastroesophageal reflux disease Currently on Pepcid 10 mg by mouth twice a day. On Prilosec 20 mg by mouth daily at home. Discussed with family. Patient does not want PEG tube. Family on board. : Nicolas if indicated for accurate I's and O's in a critically ill patient Endo: Diabetes mellitus Severe Hyperglycemia increase meal-time insulin to 5 units TID with meals. increase to high-dose SSI, q4h Episodic hypoglycemia while on Lantus. This has been discontinued. Blood sugar currently greater than 300 Renal: Creatinine currently within normal limits. Monitor I's and O's. Heme: Normocytic anemia Monitor CBC daily. ID: Staph hominis bacteremia/likely contaminant Treated with aztreonam and Levaquin. Both these antibiotics have been discontinued by infectious disease FEN: Hypernatremia Hypo-magnesium Replace electrolytes as clinically indicated. MSK: PT evaluate and treat Access - Right IJ CVL placed 04/05/2016, will obtain piv's and d/c line. Prophylaxis - GI - Pepcid - DVT - SCD/Lovenox subcutaneous Patient is stable from a critical care medicine standpoint. can transfer to floor. Problem Qualifiers (1) STEMI (ST elevation myocardial infarction): Qualified Code: I21.02 - ST elevation myocardial infarction involving left anterior descending (LAD) coronary artery (2) Pneumonia: Qualified Code: J18.1 - Pneumonia of left lower lobe due to infectious organism (3) Diabetes mellitus type 2, uncontrolled: Qualified Code: E11.8 - Uncontrolled type 2 diabetes mellitus with complication , without long-term current use of insulin Sylvester Bobby MD Apr 12, 2016 16:18
[2016-04-12] MEDS: POTASSIUM CHLORIDE 20 MEQ CONTROLLED RELEASE TAB PO SCH (18:00)
[2016-04-12] MEDS: ATORVASTATIN 40 MG TAB PO SCH (21:00)
[2016-04-13] VITALS (10 sets, daily range): BP systolic 101–129; BP diastolic 53–71; PULSE 85–111; RESP 18–26; TEMP 96.3–98; O2SAT 90–98
[2016-04-13] MEDS: INSULIN NovoLIN REGULAR SUPPLEMENTAL SCALE SQ SCH ×7 (00:51→20:59)
[2016-04-13] MEDS: RESP: ALBUTEROL 2.5 MG/IPRATROPIUM 0.5 MG NEB (SCH) NEB ×4 (03:31→21:38)
--- NOTE | 2016-04-13 08:00 | PD.CARD.PN ---
Subjective Subjective Remarks Resting comfortably. Seems to deny pain, dyspnea. Objective Medications Item Value Date Time Enoxaparin Sodium 30 mg 04/11/16 1400 (Lovenox Inj) Q24H/SQ 04/12/16 1500 Furosemide 20 mg 04/11/16 0900 (Lasix Inj) DAILY/IV PUSH 04/12/16 0855 Potassium Chloride 20 meq 04/10/16 1800 (KCl) DAILY@18/PO 04/11/16 1818 Atorvastatin 40 mg 04/06/16 2100 Calcium HS/PO 04/11/16 2231 (Lipitor) Aspirin 325 mg 04/06/16 0900 (Aspirin) DAILY/PO 04/12/16 0855 Vital Signs / I&O Vital Signs Date Time Temp Pulse Resp B/P Pulse Ox O2 Delivery O2 Flow Rate FiO2 04/13/16 07:45 98 Nasal Cannula 4.00 04/13/16 06:00 100 04/13/16 04:00 97.0 98 18 115/55 90 04/13/16 04:00 100 04/13/16 02:00 93 04/13/16 00:00 93 04/13/16 00:00 96.3 85 18 101/53 91 04/12/16 22:00 98 04/12/16 21:22 93 Nasal Cannula 3.00 04/12/16 20:00 98 04/12/16 20:00 97.5 100 20 114/57 93 04/12/16 16:00 98.3 102 22 110/56 90 04/12/16 12:00 98.0 103 20 112/59 85 04/12/16 10:00 105 04/12/16 08:44 96 Nasal Cannula 3.00 04/12/16 08:00 98.2 102 22 128/62 93 04/12/16 08:00 102 I/O 04/12/16 04/12/16 04/12/16 04/13/16 04/13/16 04/13/16 07:00 15:00 23:00 07:00 15:00 23:00 Intake Total 960 ml 150 ml 100 ml Output Total 1000 ml 1000 ml 750 ml 300 ml Balance -1000 ml -40 ml -600 ml -200 ml Intake Oral 960 ml 150 ml 100 ml Output Urine Total 1000 ml 1000 ml 750 ml 300 ml # Bowel Movements 1 0 1 1 Physical Exam GENERAL: Well developed, very thin. No acute distress. HEENT: Jugular venous pressure is normal. CHEST: Lungs clear to auscultation anteriorly. CARDIAC: Regular rate and rhythm without S3, S4. I/ AKHIL RUSB. ABDOMEN: Soft, nontender, no hepatosplenomegaly. Bowel sounds present. EXTREMITIES: No clubbing, cyanosis, or edema. Assessment and Plan Problem List: (1) STEMI (ST elevation myocardial infarction) Assessment and Plan: Status post anterior STEMI, PTCA of prox and mid LAD, unsuccessful stenting. Cardiac status stable over the weekend. Hemodynamically stable, remains slightly tachycardic. EF by echo close to 45% . Possible mild failure by CXR. BP's overall too low for beta ry, NUBIA-I , occasional SBP 90. REC continue aspirin, Plavix cont statin Code Status full code Problem Qualifiers (1) STEMI (ST elevation myocardial infarction): Qualified Code: I21.02 - ST elevation myocardial infarction involving left anterior descending (LAD) coronary artery Naun Ferrari MD Apr 13, 2016 08:00
[2016-04-13] MEDS: FLUTICASONE 100 MCG/VILANTEROL 25 MCG INHALER INH SCH (09:00)
[2016-04-13] MEDS: DOCUSATE SODIUM 100 MG/10 ML UDC PO SCH ×2 (10:13→21:08)
[2016-04-13] MEDS: FUROSEMIDE 20 MG/2 ML VIAL IV PUSH SCH (10:14)
[2016-04-13] MEDS: FAMOTIDINE 20 MG TAB PO SCH ×2 (10:14→21:08)
[2016-04-13] MEDS: ASPIRIN 325 MG TAB PO SCH (10:15)
[2016-04-13] MEDS: SODIUM CHLORIDE 0.9% FLUSH 5 ML FLUSH IVF SCH ×2 (10:15→21:00)
[2016-04-13] MEDS: methylPREDNISolone SOD SUCC 40 MG/1 ML VIAL IV SCH (10:16)
[2016-04-13] MEDS: INSULIN ASPART 1,000 UNITS/10 ML VIAL SQ SCH ×3 (10:17→17:57)
--- NOTE | 2016-04-13 12:37 | HHI.PR ---
Subjective Remarks Awake and , and on O2 at 5 L. Taking some po diet. seems confused. Objective Vital Signs Date Time Temp Pulse Resp B/P Pulse Ox O2 Delivery O2 Flow Rate FiO2 04/13/16 07:45 98 Nasal Cannula 4.00 04/13/16 06:00 100 04/13/16 04:00 97.0 98 18 115/55 90 04/13/16 04:00 100 04/13/16 02:00 93 04/13/16 00:00 93 04/13/16 00:00 96.3 85 18 101/53 91 04/12/16 22:00 98 04/12/16 21:22 93 Nasal Cannula 3.00 04/12/16 20:00 98 04/12/16 20:00 97.5 100 20 114/57 93 04/12/16 16:00 98.3 102 22 110/56 90 I/O 04/12/16 04/12/16 04/12/16 04/13/16 04/13/16 04/13/16 07:00 15:00 23:00 07:00 15:00 23:00 Intake Total 960 ml 150 ml 100 ml Output Total 1000 ml 1000 ml 750 ml 300 ml Balance -1000 ml -40 ml -600 ml -200 ml Intake Oral 960 ml 150 ml 100 ml Output Urine Total 1000 ml 1000 ml 750 ml 300 ml # Bowel Movements 1 0 1 1 Result Diagram: 04/12/16 0540 04/12/16 0540 Objective Remarks GENERAL: This is an emaciated looking elderly man who is in bed, pale and mildly dyspneic at rest. HEENT: Head normocephalic. Pupils reactive. Tongue is dry and throat injected. Ears, no inflammation. NECK: Supple. No bruits, no thyroid enlargement. CHEST: Equal movements with wheezes bilaterally, prolonged expirations,Occ crackles at the lung bases. HEART: The heart sounds are irregular S1 and S2. No murmur. ABDOMEN: Soft, protuberant. No masses, no organomegaly or tenderness. Bowel sounds are active EXTREMITIES: Muscle wasting and diminished pulses. Reflexes 1+. The patient does move his legs but weak.no edema noted SKIN: Revealed no definite lesions. Assessment and Plan Assessment and Plan IMPRESSION 1. ST elevation myocardial infarction 2. Chronic respiratory failure. 3. Basilar pneumonia and hypoxemia. 4. Chronic obstructive pulmonary disease 5. Diabetes mellitus type 2. 6. Plan : 1. Pureed foods. 2. Suction throat prn 3. Nebs tid , duoneb. 4. BMP in am 5. PT evaluation. 6.Family requests DNR. 7. Solumedrol 40 mg daily. 8. Family does not want peg. Gabriel Campos MD Apr 13, 2016 12:37
--- NOTE | 2016-04-13 14:01 | HHI.IDPN ---
Note Infectious Disease Note Patient is very alert. Up in stretcher chair. Communicative. Afebrile. Notes reviewed. This is a 89-year-old white male who presented to emergency department on 04/05/2016, the patient was diagnosed with ST elevation myocardial infarction and fever. PAST MEDICAL HISTORY 1. Hypercholesteremia 2. Diabetes mellitus 3. Gastroesophageal reflux disease. 4. Laminectomy L4/L5. ALLERGIES PENICILLIN AMOXICILLIN FLAGYL MEDICATIONS: Current Medications Medications (Trade) Dose Ordered Sig/Jodie Route PRN Reason Start Time Stop Time Status Last Admin Dose Admin IV Flush (NS Flush) 2 ml UNSCH PRN IVF FLUSH AFTER USING IV ACCESS 04/05/16 22:00 04/07/16 09:02 IV Flush (NS Flush) 2 ml BID IVF 04/06/16 09:00 04/13/16 10:15 Acetaminophen (Tylenol) 325 mg Q4H PRN PO PAIN SCALE 1 TO 5 04/05/16 22:00 Aspirin (Aspirin) 325 mg DAILY PO 04/06/16 09:00 04/13/16 10:15 Atropine Sulfate (Atropine Inj) 0.5 mg UNSCH PRN IV VAGAL REPONSE 04/05/16 22:00 Ondansetron HCl (Zofran Inj) 4 mg Q4H PRN IV NAUSEA 04/05/16 22:00 Atorvastatin Calcium (Lipitor) 40 mg HS PO 04/06/16 21:00 04/11/16 22:31 Miscellaneous Information Patient in critical care unit? Ass... [id number] XX 04/05/16 23:15 04/06/16 07:42 Docusate Sodium (Colace Liq) 100 mg Q12HR PO 04/07/16 21:00 04/13/16 10:13 Glucagon (Glucagon Inj) 1 mg UNSCH PRN IM/SQ HYPOGLYCEMIA-SEE COMMENTS 04/09/16 06:45 Fluticasone/ Vilanterol (Breo Ellipta 100-25 Inh) 1 puff DAILY INH 04/10/16 09:00 04/12/16 08:56 Potassium Chloride (KCl) 20 meq DAILY@18 PO 04/10/16 18:00 04/11/16 18:18 Famotidine (Pepcid) 10 mg BID PO 04/10/16 21:00 04/13/16 10:14 Miscellaneous (Pill Splitter) 1 ea UNSCH PRN OTHER SEE LABEL COMMENTS 04/10/16 21:00 Furosemide (Lasix Inj) 20 mg DAILY IV PUSH 04/11/16 09:00 04/13/16 10:14 Methylprednisolone Sodium Succinate (SoluMEDROL INJ) 40 mg DAILY IV 04/12/16 09:00 04/13/16 10:16 Enoxaparin Sodium (Lovenox Inj) 30 mg Q24H SQ 04/11/16 14:00 04/12/16 15:00 Insulin Aspart (NovoLOG INJ) 5 units BID@08,17 SQ 04/12/16 17:00 04/13/16 10:17 Dextrose (D50w (Vial) Inj) 25 ml UNSCH PRN IV PUSH HYPOGLYCEMIA-SEE COMMENTS 04/12/16 16:30 Insulin Human Regular (NovoLIN R SUPPLEMENTAL SCALE) 1 Q4HR SQ 04/12/16 20:00 04/13/16 10:17 SOCIAL HISTORY: No tobacco, no alcohol. No illicit drugs. FAMILY HISTORY Noncontributory. REVIEW OF SYSTEMS Review of systems unable to obtain. OBJECTIVE: Vital Signs Date Time Temp Pulse Resp B/P Pulse Ox O2 Delivery O2 Flow Rate FiO2 04/13/16 07:45 98 Nasal Cannula 4.00 04/13/16 06:00 100 04/13/16 04:00 97.0 98 18 115/55 90 04/13/16 04:00 100 04/13/16 02:00 93 04/13/16 00:00 93 04/13/16 00:00 96.3 85 18 101/53 91 04/12/16 22:00 98 04/12/16 21:22 93 Nasal Cannula 3.00 04/12/16 20:00 98 04/12/16 20:00 97.5 100 20 114/57 93 04/12/16 16:00 98.3 102 22 110/56 90 04/12/16 04/12/16 04/13/16 15:00 23:00 07:00 Intake Total 960 ml 150 ml 100 ml Output Total 1000 ml 750 ml 300 ml Balance -40 ml -600 ml -200 ml Intake Oral 960 ml 150 ml 100 ml Output Urine Total 1000 ml 750 ml 300 ml # Bowel Movements 0 1 1 Laboratory Tests Test 04/12/16 05:40 White Blood Count 8.7 TH/MM3 Red Blood Count 3.07 MIL/MM3 Hemoglobin 9.5 GM/DL Hematocrit 29.1 % Mean Corpuscular Volume 94.9 FL Mean Corpuscular Hemoglobin 30.9 PG Mean Corpuscular Hemoglobin 32.5 % Concent Red Cell Distribution Width 15.8 % Platelet Count 203 TH/MM3 Mean Platelet Volume 10.3 FL Neutrophils (%) (Auto) 92.9 % Lymphocytes (%) (Auto) 1.5 % Monocytes (%) (Auto) 5.6 % Eosinophils (%) (Auto) 0.0 % Basophils (%) (Auto) 0.0 % Neutrophils # (Auto) 8.1 TH/MM3 Lymphocytes # (Auto) 0.1 TH/MM3 Monocytes # (Auto) 0.5 TH/MM3 Eosinophils # (Auto) 0.0 TH/MM3 Basophils # (Auto) 0.0 TH/MM3 CBC Comment DIFF FINAL Differential Comment Laboratory Tests Test 04/11/16 04/12/16 18:09 05:40 Random Glucose 738 MG/DL 687 MG/DL Sodium Level 140 MEQ/L Potassium Level 5.0 MEQ/L Chloride Level 103 MEQ/L Carbon Dioxide Level 22.3 MEQ/L Anion Gap 15 MEQ/L Blood Urea Nitrogen 52 MG/DL Creatinine 1.54 MG/DL Estimat Glomerular Filtration 43 ML/MIN Rate Calcium Level 7.7 MG/DL Phosphorus Level 4.1 MG/DL Magnesium Level 2.3 MG/DL Total Bilirubin 0.9 MG/DL Aspartate Amino Transf 32 U/L (AST/SGOT) Alanine Aminotransferase 42 U/L (ALT/SGPT) Alkaline Phosphatase 104 U/L Total Protein 5.0 GM/DL Albumin 1.9 GM/DL PHYSICAL EXAMINATION: IN GENERAL: No acute distress. Alert. HEAD, EYES, EARS, NOSE, AND THROAT: Head is atraumatic. Extraocular movements grossly intact, pupils reactive to light without icterus. Oropharynx: no lesions. NECK: Supple. No adenopathy. LUNGS: Clear. HEART: Normal S1-S2. no audible murmur. ABDOMEN: Bowel sounds present, soft, no tenderness appreciated. EXTREMITIES: No clubbing or cyanosis or edema. SKIN: No rash. NEUROLOGIC: Patient appears alert. Nonfocal. IMPRESSION Previous Sepsis. Previous Aspiration pneumonia. Doing well. Previous Positive blood culture with staph coagulase negative in 03/25 bottles suggesting contamination. STEMI No clear evidence of ongoing infection. RECOMMENDATIONS: Nothing new to add at this time. I will sign off now. Ottoniel Dominique MD Apr 13, 2016 14:01
[2016-04-13] MEDS: ENOXAPARIN SODIUM 30 MG/0.3 ML SYRINGE SQ SCH (15:06)
--- NOTE | 2016-04-13 15:17 | HHI.PR ---
Subjective Remarks had some cough and congestion overnight and aspiration questioned by nursing. Objective Vitals seems confused heart reg lung course bs abd s/nt ext no edema Vital Signs Date Time Temp Pulse Resp B/P Pulse Ox O2 Delivery O2 Flow Rate FiO2 04/13/16 07:45 98 Nasal Cannula 4.00 04/13/16 06:00 100 04/13/16 04:00 97.0 98 18 115/55 90 04/13/16 04:00 100 04/13/16 02:00 93 04/13/16 00:00 93 04/13/16 00:00 96.3 85 18 101/53 91 04/12/16 22:00 98 04/12/16 21:22 93 Nasal Cannula 3.00 04/12/16 20:00 98 04/12/16 20:00 97.5 100 20 114/57 93 04/12/16 16:00 98.3 102 22 110/56 90 04/12/16 04/12/16 04/13/16 15:00 23:00 07:00 Intake Total 960 ml 150 ml 100 ml Output Total 1000 ml 750 ml 300 ml Balance -40 ml -600 ml -200 ml Intake Oral 960 ml 150 ml 100 ml Output Urine Total 1000 ml 750 ml 300 ml # Bowel Movements 0 1 1 Result Diagram: 04/12/16 0540 04/12/16 0540 Imaging Last Impressions Chest X-Ray 04/10/16 0600 Signed Impressions: Service Date/Time: Sunday, April 10, 2016 05:19 - CONCLUSION: Slight worsening pulmonary edema and left lung base consolidation not clearly seen previously. Pleural effusions have not changed. Cyrus Mcdonough MD Chest Ultrasound 04/09/16 0000 Signed Impressions: Service Date/Time: March 18:47 - CONCLUSION: Small right pleural effusion. No thoracentesis lucio made. Fabien Simental MD Head CT 04/08/16 0330 Signed Impressions: Service Date/Time: Friday, April 08, 2016 04:46 - CONCLUSION: No evidence of acute intracranial findings Fabien Randall MD Chest CT 04/07/16 0000 Signed Impressions: Service Date/Time: Thursday, April 07, 2016 15:15 - CONCLUSION: 1. Bilateral lower lobe atelectasis versus pneumonia. 2. Moderate bilateral effusions Lui Guerra MD A/P Problem List: (1) STEMI (ST elevation myocardial infarction) Status: Acute Plan: - Pt admitted with respiratory distress, fever of [address] elevations in multiple leads. - Pt was admitted to ICU/[facility]iv[facility] and Cardiology. - Pt underwent LHC which noted moderate to severe three-vessel coronary artery disease, severely reduced left ventricular systolic function with estimated EF of 20-25% due to akinesis of the apex, mid to distal inferior wall, and mid to distal anterior wall, s/p difficult angioplasty of the proximal and mid LAD, unsuccessful stenting of the mid-LAD. - 2D echo (04/06) - Mild LVH - EF 45% - Akinesis of the mid-distal anteroseptal. anterior, and apical myocardium - Mild to moderate tricuspid regurg - Moderately to severely increased PA peak pressure of 62mmHg -- Pt with a reported hx of COPD - Pulmonary medicine is following. - Pt was being treated for aspiration pneumonia prior to admission with Levaquin - Chest CT (04/07) --> Bilateral lower lobe atelectasis versus pneumonia. Moderate bilateral effusions - US Chest (04/09) with small right pleural effusion and ~470cc left pleural effusion, marked for thoracentesis. - CXR (04/10) --> Slight worsening pulmonary edema and left lung consolidation, pleural effusions have not changed. - Speech therapy following the pt and evaluation on 04/09 without any overt s/s of aspiration on mechanical soft diet with chopped meats/gravy and thin liquids. - Pt was being treated prior to admission for possible aspiration pneumonia. - Blood culture (04/05) with staph coagulase negative in 03/25 bottles suggesting contamination. - Pt was treated with Levaquin IV (04/06-04/10) and Azactam (04/06-04/07) -currently the pt is on iv solumedrol and nebs. abx have been discontinued. - will hold lasix given hardik. ns x 500ml and recheck cr -guarded prognosis. will call his daughter in AM for update (2) HARDIK (acute kidney injury) Status: Acute Plan: pt with worsening renal function. this is most likely related to diuresis. hold lasix and give small 500ml NS and recheck cr (3) Acute on chronic respiratory failure with hypoxemia Status: Acute Plan: see above (4) Aspiration pneumonia Status: Acute Plan: see above (5) Diabetes mellitus type 2, uncontrolled Status: Acute Plan: brittle dm control steroid hyperglycemia cont novolog. add morning levemir with the solumedrol. cont ssi. Problem Qualifiers (1) STEMI (ST elevation myocardial infarction): Qualified Code: I21.02 - ST elevation myocardial infarction involving left anterior descending (LAD) coronary artery (2) Diabetes mellitus type 2, uncontrolled: Qualified Code: E11.8 - Uncontrolled type 2 diabetes mellitus with complication , without long-term current use of insulin Maninder Palmer MD Apr 13, 2016 15:17
[2016-04-13] MEDS: POTASSIUM CHLORIDE 20 MEQ CONTROLLED RELEASE TAB PO SCH (18:00)
[2016-04-13 19:04] LABS: BICARBONATE 29.4 MEQ/L (21.0-32.0); POTASSIUM 4.1 MEQ/L (3.5-5.1)
[2016-04-13] MEDS ORDERED: SODIUM CHLORID 0.9% 500 ML INJ 500 ML IV SCH (20:15)
[2016-04-13] MEDS: ATORVASTATIN 40 MG TAB PO SCH (21:08)
--- NOTE | 2016-04-13 23:30 | EKG ---
Date Performed: 04/10/2016 Time Performed: 14:19:49 PTAGE: 89 years EKG: Sinus rhythm LOW QRS VOLTAGE IN EXTREMITY LEADS ANTERIOR MYOCARDIAL INFARCTION , PROBABLY RECENT ACUTE KS PREVIOUS TRACING : 04/05/2016 20.10 Compared to the previous tracing, previously sinus ta chycardia with extensive elevations anterolaterally DOCTOR: Ralph Adams Interpretating Date/Time 04/13/2016 23:28:53
[2016-04-14] VITALS (11 sets, daily range): BP systolic 95–128; BP diastolic 54–66; PULSE 101–133; RESP 18–46; TEMP 97–98.7; O2SAT 91–95
[2016-04-14] MEDS: RESP: ALBUTEROL 2.5 MG/IPRATROPIUM 0.5 MG NEB (SCH) NEB ×4 (03:13→21:42)
[2016-04-14 04:31] LABS: HEMATOCRIT 30.6 % (39.0-51.0); MEAN CELL VOLUME 90.9 FL (80.0-100.0); MEAN CORPUSCULAR HEMOGLOBIN 30.4 PG (27.0-34.0); MEAN CORPUSCULAR HGB CONC 33.4 % (32.0-36.0); PLATELET COUNT 234 TH/MM3 (150-450); RED BLOOD COUNT 3.36 MIL/MM3 (4.50-5.90); RED CELL DISTRIBUTION WIDTH 14.9 % (11.6-17.2); REVIEW FLAG FINAL; WHITE BLOOD COUNT 11.9 TH/MM3 (4.0-11.0)
[2016-04-14 04:48] LABS: BICARBONATE 31.9 MEQ/L (21.0-32.0); MAGNESIUM 2.2 MG/DL (1.5-2.5); POTASSIUM 3.3 MEQ/L (3.5-5.1)
[2016-04-14] MEDS: INSULIN NovoLIN REGULAR SUPPLEMENTAL SCALE SQ SCH ×2 (05:09)
--- NOTE | 2016-04-14 08:26 | HHI.PR ---
Subjective Remarks pt more alert and comfortable today Objective Vitals mouth dry more oriented heart reg lung good air entry abd s/nt/nabs ext no edema Vital Signs Date Time Temp Pulse Resp B/P Pulse Ox O2 Delivery O2 Flow Rate FiO2 04/14/16 07:40 95 Nasal Cannula 2.00 04/14/16 06:00 101 04/14/16 04:00 105 04/14/16 04:00 97.7 105 18 100/66 91 04/14/16 02:00 110 04/14/16 00:00 109 04/14/16 00:00 97.8 109 18 107/54 91 04/13/16 22:00 103 04/13/16 21:40 Nasal Cannula 2.00 04/13/16 20:00 109 04/13/16 20:00 98.0 109 20 112/59 91 04/13/16 16:00 97.4 109 20 111/58 91 04/13/16 12:00 98.0 111 26 110/71 94 04/13/16 04/13/16 04/14/16 15:00 23:00 07:00 Intake Total 480 ml 176 ml 153 ml Output Total 300 ml 100 ml 50 ml Balance 180 ml 76 ml 103 ml Intake Oral 480 ml 60 ml IV Total 0 ml 116 ml 153 ml Output Urine Total 300 ml 100 ml 50 ml # Bowel Movements 0 0 0 Result Diagram: 04/14/16 0304 04/14/16 0304 Imaging Last Impressions Chest X-Ray 04/10/16 0600 Signed Impressions: Service Date/Time: Sunday, April 10, 2016 05:19 - CONCLUSION: Slight worsening pulmonary edema and left lung base consolidation not clearly seen previously. Pleural effusions have not changed. Cyrus Mcdonough MD Chest Ultrasound 04/09/16 0000 Signed Impressions: Service Date/Time: March 18:47 - CONCLUSION: Small right pleural effusion. No thoracentesis lucio made. Fabien Simental MD Head CT 04/08/16 0330 Signed Impressions: Service Date/Time: Friday, April 08, 2016 04:46 - CONCLUSION: No evidence of acute intracranial findings Fabien Randall MD Chest CT 04/07/16 0000 Signed Impressions: Service Date/Time: Thursday, April 07, 2016 15:15 - CONCLUSION: 1. Bilateral lower lobe atelectasis versus pneumonia. 2. Moderate bilateral effusions Lui Guerra MD A/P Problem List: (1) STEMI (ST elevation myocardial infarction) Status: Acute Plan: - Pt admitted with respiratory distress, fever of 103 [address] elevations in multiple leads. - Pt was admitted to ICU/[facility]iv[facility] and Cardiology. - Pt underwent LHC which noted moderate to severe three-vessel coronary artery disease, severely reduced left ventricular systolic function with estimated EF of 20-25% due to akinesis of the apex, mid to distal inferior wall, and mid to distal anterior wall, s/p difficult angioplasty of the proximal and mid LAD, unsuccessful stenting of the mid-LAD. - 2D echo (04/06) - Mild LVH - EF 45% - Akinesis of the mid-distal anteroseptal. anterior, and apical myocardium - Mild to moderate tricuspid regurg - Moderately to severely increased PA peak pressure of 62mmHg Chest CT (04/07) --> Bilateral lower lobe atelectasis versus pneumonia. Moderate bilateral effusions - US Chest (04/09) with small right pleural effusion and ~470cc left pleural effusion, marked for thoracentesis. - CXR (04/10) --> Slight worsening pulmonary edema and left lung consolidation, pleural effusions have not changed. - Speech therapy following the pt and evaluation on 04/09 without any overt s/s of aspiration on mechanical soft diet with chopped meats/gravy and thin liquids. - Blood culture (04/05) with staph coagulase negative in 03/25 bottles suggesting contamination. -s/p stemi with improved LVF to 40-45%. angioplasty to lad as above -hardik related to diuretics and dehydration --daughter says no hx of copd. 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 -chronic aspiration. -general weakness -long talk with physician daughter. we will stop lasix and solumedrol. -modified diet -PT/OOB -cont nebs -push po fluids. if needed another gentle bolus of NS if cr not improving -asa/plavix -dvt prophylaxis -cont novolog with meals and ssi. -full code for now. (2) HARDIK (acute kidney injury) Status: Acute Plan: see above (3) Acute on chronic respiratory failure with hypoxemia Status: Acute Plan: see above (4) Aspiration pneumonia Status: Acute Plan: see above (5) Diabetes mellitus type 2, uncontrolled Status: Acute Plan: brittle dm control steroid hyperglycemia see above Problem Qualifiers (1) STEMI (ST elevation myocardial infarction): Qualified Code: I21.02 - ST elevation myocardial infarction involving left anterior descending (LAD) coronary artery (2) Diabetes mellitus type 2, uncontrolled: Qualified Code: E11.8 - Uncontrolled type 2 diabetes mellitus with complication , without long-term current use of insulin Maninder Palmer MD Apr 14, 2016 08:26
[2016-04-14] MEDS ORDERED: INSULIN DETEMIR 100 UNITS/ML VIAL SQ SCH (09:00)
[2016-04-14] MEDS: FLUTICASONE 100 MCG/VILANTEROL 25 MCG INHALER INH SCH (09:00)
[2016-04-14] MEDS ORDERED: DEXTROSE 50% IN WATER 50 ML VIAL(D50) IV PUSH PRN (09:30)
[2016-04-14] MEDS ORDERED: GLUCAGON 1 MG/ML VIAL OTHER PRN (09:30)
[2016-04-14] MEDS ORDERED: POTASSIUM CHLORIDE 10 MEQ CAP PO ONE (10:00)
[2016-04-14] MEDS: CLOPIDOGREL 75 MG TAB PO SCH (10:17)
[2016-04-14] MEDS: FAMOTIDINE 20 MG TAB PO SCH ×2 (10:17→20:46)
[2016-04-14] MEDS: DOCUSATE SODIUM 100 MG/10 ML UDC PO SCH ×2 (10:17→20:46)
[2016-04-14] MEDS: ASPIRIN 325 MG TAB PO SCH (10:17)
[2016-04-14] MEDS: SODIUM CHLORIDE 0.9% FLUSH 5 ML FLUSH IVF SCH ×2 (10:17→20:46)
[2016-04-14] MEDS: INSULIN ASPART 1,000 UNITS/10 ML VIAL SQ SCH ×3 (10:22→19:51)
[2016-04-14] MEDS: INSULIN ASPART SUPPLEMENTAL SCALE SQ SCH ×3 (12:12→20:50)
--- NOTE | 2016-04-14 13:12 | HHI.PR ---
Subjective Remarks Awake and , and on O2 at 3 L. Taking some po diet. O2 sat 95 seems confused.Weak still. Objective Vital Signs Date Time Temp Pulse Resp B/P Pulse Ox O2 Delivery O2 Flow Rate FiO2 04/14/16 07:40 95 Nasal Cannula 2.00 04/14/16 06:00 101 04/14/16 04:00 105 04/14/16 04:00 97.7 105 18 100/66 91 04/14/16 02:00 110 04/14/16 00:00 109 04/14/16 00:00 97.8 109 18 107/54 91 04/13/16 22:00 103 04/13/16 21:40 Nasal Cannula 2.00 04/13/16 20:00 109 04/13/16 20:00 98.0 109 20 112/59 91 04/13/16 16:00 97.4 109 20 111/58 91 I/O 04/13/16 04/13/16 04/13/16 04/14/16 04/14/16 04/14/16 07:00 15:00 23:00 07:00 15:00 23:00 Intake Total 100 ml 480 ml 176 ml 153 ml Output Total 300 ml 300 ml 100 ml 50 ml Balance -200 ml 180 ml 76 ml 103 ml Intake Oral 100 ml 480 ml 60 ml IV Total 0 ml 116 ml 153 ml Output Urine Total 300 ml 300 ml 100 ml 50 ml # Bowel Movements 1 0 0 0 Result Diagram: 04/14/1630304/14/16303 Objective Remarks GENERAL: This is an emaciated looking elderly man who is in bed, pale and not dyspneic at rest. HEENT: Head normocephalic. Pupils reactive. Tongue is dry and throat injected. Ears, no inflammation. NECK: Supple. No bruits, no thyroid enlargement. CHEST: Equal movements with , prolonged expirations,Occ crackles at the lung bases. HEART: The heart sounds are irregular S1 and S2. No murmur. ABDOMEN: Soft, protuberant. No masses, no organomegaly or tenderness. Bowel sounds are active EXTREMITIES: Muscle wasting and diminished pulses. Reflexes 1+. The patient does move his legs but weak.no edema noted SKIN: Revealed no definite lesions. Assessment and Plan Assessment and Plan IMPRESSION 1. ST elevation myocardial infarction 2. Chronic respiratory failure. 3. Basilar pneumonia and hypoxemia. 4. Chronic obstructive pulmonary disease 5. Diabetes mellitus type 2. 6. Deconditioning. Plan : 1. Pureed foods. 2. Suction throat prn 3. Nebs tid , duoneb. 4. O2 at 2L. 5. PT evaluation. 6.Family requests DNR. 7. D/C Solumedrol and add Prednisone 20 mg daily. 8. Family does not want peg. Gabriel Campos MD Apr 14, 2016 13:12
--- NOTE | 2016-04-14 13:17 | HHI.HCPN ---
Reason for visit a. To assist with evaluation and management of symptoms including: chest pain, lethargy. b. To assist medical decision maker(s) with: better understanding of current medical conditions; weighing benefits/burdens of medical treatment options; making medical treatment decisions. . Subjective/Interval History Mr. Hartley is an 89-year-old admitted with STEMI s/p angioplasty and unsuccessful stenting of 3 vessel disease(severe three-vessel coronary artery disease, severely reduced left ventricular systolic function with estimated EF of 20-25% due to akinesis of the apex, mid to distal inferior wall, and mid to distal anterior wall, s/p difficult angioplasty of the proximal and mid LAD, unsuccessful stenting of the mid-LAD) who was in ICU on pressor support. He is cachectic with chronic aspiration. Pt had pleural effusion. Pt had speech therapy and does not have any overt s/s of aspiration and placed on mechanical soft diet. Over the weekend 04/[address] head revealed no acute findings, ate breakfast. Pt stable enough and by 04/12, project management professional signed off. Pt seen and followed by hospitalist. Today on my visit pt remains stable. Pt had 50% of lunch yesterday. Blood glucose was 174 this morning. WBC today 11.9. On my visit.... . Family/friend interactions I have spoken with daughter Millie who is a physician in [facility]. Answered her questions and discussed goals of care. Advance Directives Living Will: Never completed Health Care Surrogate: Never completed Durable Power of Elementary Vocal Music Teacher: Never completed Advance Directive Specifics Health Care Surrogate(s): No known written advance directives. According to [place] statutes health care proxy decision-making falls to his spouse. . Objective Vital Signs Date Time Temp Pulse Resp B/P Pulse Ox O2 Delivery O2 Flow Rate FiO2 04/14/16 07:40 95 Nasal Cannula 2.00 04/14/16 06:00 101 04/14/16 04:00 105 04/14/16 04:00 97.7 105 18 100/66 91 04/14/16 02:00 110 04/14/16 00:00 109 04/14/16 00:00 97.8 109 18 107/54 91 04/13/16 22:00 103 04/13/16 21:40 Nasal Cannula 2.00 04/13/16 20:00 109 04/13/16 20:00 98.0 109 20 112/59 91 04/13/16 16:00 97.4 109 20 111/58 91 Intake & Output 04/14/16 04/14/16 07:00 19:00 Intake Total 329 ml Output Total 150 ml Balance 179 ml Intake Oral 60 ml IV Total 269 ml Output Urine Total 150 ml # Bowel Movements 0 Physical Exam CONSTITUTIONAL/GENERAL: This is a cachectic, critically ill patient, in no apparent distress. TUBES/LINES/DRAINS: right IJ central line, PIV right, Valenzuela, SCDs. SKIN: No jaundice, rashes, or lesions. Ecchymoses on upper extremities. No wounds seen anteriorly. Skin temperature appropriate. Not diaphoretic. ENT: Hard of hearing. Nose without bleeding or purulent drainage. Poor dentition. CARDIOVASCULAR: intermittent tachycardia. RESPIRATORY/CHEST: Symmetric, unlabored respirations. Few scattered faint crackles. GASTROINTESTINAL: Abdomen soft, non-tender, nondistended. No guarding. Bowel sounds present. GENITOURINARY: Without palpable bladder distension. Valenzuela catheter in place. MUSCULOSKELETAL: Extremities without clubbing, cyanosis, or edema. No mottling or clubbing. NEUROLOGICAL: Lethargic, less communicative. Moves all extremities. PSYCHIATRIC: No obvious anxiety/depression. no apparent hallucinations or other psychotic thought process. . Diagnostic Tests Laboratory Laboratory Tests Test 04/11/16 04/12/16 04/13/16 04/14/16 18:09 05:40 18:00 03:04 Random Glucose 738 MG/DL 687 MG/DL 307 MG/DL 44 MG/DL (74-106) (74-106) (74-106) (74-106) White Blood Count 8.7 TH/MM3 11.9 TH/MM3 (4.0-11.0) (4.0-11.0) Red Blood Count 3.07 MIL/MM3 3.36 MIL/MM3 (4.50-5.90) (4.50-5.90) Hemoglobin 9.5 GM/DL 10.2 GM/DL (13.0-17.0) (13.0-17.0) Hematocrit 29.1 % 30.6 % (39.0-51.0) (39.0-51.0) Mean Corpuscular Volume 94.9 FL 90.9 FL (80.0-100.0) (80.0-100.0) Mean Corpuscular Hemoglobin 30.9 PG 30.4 PG (27.0-34.0) (27.0-34.0) Mean Corpuscular Hemoglobin 32.5 % 33.4 % Concent (32.0-36.0) (32.0-36.0) Red Cell Distribution Width 15.8 % 14.9 % (11.6-17.2) (11.6-17.2) Platelet Count 203 TH/MM3 234 TH/MM3 (150-450) (150-450) Mean Platelet Volume 10.3 FL 10.0 FL (7.0-11.0) (7.0-11.0) Neutrophils (%) (Auto) 92.9 % (16.0-70.0) Lymphocytes (%) (Auto) 1.5 % (9.0-44.0) Monocytes (%) (Auto) 5.6 % (0.0-8.0) Eosinophils (%) (Auto) 0.0 % (0.0-4.0) Basophils (%) (Auto) 0.0 % (0.0-2.0) Neutrophils # (Auto) 8.1 TH/MM3 (1.8-7.7) Lymphocytes # (Auto) 0.1 TH/MM3 (1.0-4.8) Monocytes # (Auto) 0.5 TH/MM3 (0-0.9) Eosinophils # (Auto) 0.0 TH/MM3 (0-0.4) Basophils # (Auto) 0.0 TH/MM3 (0-0.2) CBC Comment DIFF FINAL Differential Comment Sodium Level 140 MEQ/L 146 MEQ/L 149 MEQ/L (136-145) (136-145) (136-145) Potassium Level 5.0 MEQ/L 4.1 MEQ/L 3.3 MEQ/L (3.5-5.1) (3.5-5.1) (3.5-5.1) Chloride Level 103 MEQ/L 106 MEQ/L 108 MEQ/L (98-107) (98-107) (98-107) Carbon Dioxide Level 22.3 MEQ/L 29.4 MEQ/L 31.9 MEQ/L (21.0-32.0) (21.0-32.0) (21.0-32.0) Anion Gap 15 MEQ/L (5-15) 11 MEQ/L (5-15) 9 MEQ/L (5-15) Blood Urea Nitrogen 52 MG/DL (7-18) 61 MG/DL (7-18) 63 MG/DL (7-18) Creatinine 1.54 MG/DL 2.11 MG/DL 1.86 MG/DL (0.60-1.30) (0.60-1.30) (0.60-1.30) Estimat Glomerular Filtration 43 ML/MIN (>89) 30 ML/MIN (>89) 34 ML/MIN (>89) Rate Calcium Level 7.7 MG/DL 8.3 MG/DL 8.4 MG/DL (8.5-10.1) (8.5-10.1) (8.5-10.1) Phosphorus Level 4.1 MG/DL (2.5-4.9) Magnesium Level 2.3 MG/DL 2.2 MG/DL (1.5-2.5) (1.5-2.5) Total Bilirubin 0.9 MG/DL (0.2-1.0) Aspartate Amino Transf 32 U/L (15-37) (AST/SGOT) Alanine Aminotransferase 42 U/L (12-78) (ALT/SGPT) Alkaline Phosphatase 104 U/L (45-117) Total Protein 5.0 GM/DL (6.4-8.2) Albumin 1.9 GM/DL (3.4-5.0) Result Diagram: 04/14/16 0304 04/14/16 0304 Imaging Last Impressions Chest X-Ray 04/12/16 0600 Signed Impressions: Service Date/Time: Tuesday, April 12, 2016 01:44 - CONCLUSION: Persistent, stable, bilateral lower lung infiltrates, left lower lobe consolidation, and left pleural effusion. Jonathan Grajeda MD Head CT 04/10/16 0000 Signed Impressions: Service Date/Time: Sunday, April 10, 2016 13:51 - CONCLUSION: Extensive vertebrobasilar calcifications are noted, negative for acute process. Khris Clemens MD FACR Chest Ultrasound 04/09/16 0000 Signed Impressions: Service Date/Time: March 18:47 - CONCLUSION: Small right pleural effusion. No thoracentesis lucio made. Fabien Simental MD Chest CT 04/07/16 0000 Signed Impressions: Service Date/Time: Thursday, April 07, 2016 15:15 - CONCLUSION: 1. Bilateral lower lobe atelectasis versus pneumonia. 2. Moderate bilateral effusions Lui Guerra MD Procedures * 04/06/16 - right IJ central line placed. * 04/05/16 - emergent cardiac cath with angioplasty and unsuccessful stenting of 3 vessel disease. . Assessment and Plan Disease Oriented Problem List: (1) STEMI (ST elevation myocardial infarction) Comment: s/p cardiac cath with angioplasty, unsuccessful stenting of 3 vessel disease. . (2) Acute on chronic respiratory failure with hypoxemia (3) Diabetes mellitus type 2, uncontrolled (4) Pneumonia Comment: aspiration pneumonia Symptom Scale: (1) Chest pain 0-10 Scale: 0 (2) Dysphagia 0-10 Scale: 0 Comment: Passed swallow eval, eating small amounts. . (3) Lethargy 0-10 Scale: Unable to quantify Pertinent Non-Medical Issues Psychosocial: . Spiritual: Restorationist sonu. Legal: No known written advanced directives. According to [place] statutes, health care proxy decision-making falls to the patient's spouse. Ethical issues impacting care: No known concerns at this time. . Important Contacts * Az Hartley, spouse/HCP: [phone] * Millie Hartley, daughter: [phone] lives in [place], [place] . Prognosis Mr. Hartley is an 89-year-old admitted with STEMI s/p angioplasty and unsuccessful stenting of 3 vessel disease . He is cachectic with chronic aspiration. He is high risk for future decline. . Code Status: Full Code Plan * No known written advanced directives. According to [place] statutes, health care proxy decision-making falls to the patient's spouse. * FULL CODE, family wants to remain full code at this point. * Goals of Care: Spoke with pt's daughter Millie who is a physician. She states [facility] is to take pt home with home health. Family state should he declined , they know how to contact hospice. . Declined me from placing a hospice consult today. Daughter is aware he is at risk of aspirating again, and cardiac issues. * SYMPTOMS: Dysphagia: passed swallow evaluation, eating small amounts. Chest pain: has resolved. Denies pain today. * Palliative care will continue to follow throughout hospital course to assist with symptom management and further clarification of treatment goals. . Time Spent Total Floor Time (mins): 34 Face to Face Time (mins): 25 Attestation To help prompt me to consider important information that might be impacting today's encounter and assessment, information from prior notes written by myself or my colleagues may have been "brought forward" into today's note. My signature on this note, however, is an attestation that I personally performed the exam, history, and/or decision-making noted today, and, unless otherwise indicated, the interactions with patient, family, and staff as well as the review of records all occurred today. I also attest that the listed assessment and stated plan reflect my best clinical judgment today based on the combination of historical information, prior notes, and today's exam/ interactions. When time spent is documented, it refers only to time spent today by the signer, or if indicated, combined time spent today by collaborating physician/nurse practitioner. Franklin Faulkner MD Apr 14, 2016 13:17
--- NOTE | 2016-04-14 14:42 | PD.CARD.PN ---
Subjective Subjective Remarks Resting comfortably, sitting up in chair. Objective Medications Item Value Date Time Clopidogrel 75 mg 04/14/16 0900 Bisulfate DAILY/PO 04/14/16 1017 (Plavix) Enoxaparin Sodium 30 mg 04/11/16 1400 (Lovenox Inj) Q24H/SQ 04/13/16 1506 Atorvastatin 40 mg 04/06/16 2100 Calcium HS/PO 04/13/16 2108 (Lipitor) Aspirin 325 mg 04/06/16 0900 (Aspirin) DAILY/PO 04/14/16 1017 Vital Signs / I&O Vital Signs Date Time Temp Pulse Resp B/P Pulse Ox O2 Delivery O2 Flow Rate FiO2 04/14/16 07:40 95 Nasal Cannula 2.00 04/14/16 06:00 101 04/14/16 04:00 105 04/14/16 04:00 97.7 105 18 100/66 91 04/14/16 02:00 110 04/14/16 00:00 109 04/14/16 00:00 97.8 109 18 107/54 91 04/13/16 22:00 103 04/13/16 21:40 Nasal Cannula 2.00 04/13/16 20:00 109 04/13/16 20:00 98.0 109 20 112/59 91 04/13/16 16:00 97.4 109 20 111/58 91 I/O 04/13/16 04/13/16 04/13/16 04/14/16 04/14/16 04/14/16 07:00 15:00 23:00 07:00 15:00 23:00 Intake Total 100 ml 480 ml 176 ml 153 ml Output Total 300 ml 300 ml 100 ml 50 ml Balance -200 ml 180 ml 76 ml 103 ml Intake Oral 100 ml 480 ml 60 ml IV Total 0 ml 116 ml 153 ml Output Urine Total 300 ml 300 ml 100 ml 50 ml # Bowel Movements 1 0 0 0 Physical Exam GENERAL: Well developed, very thin. No acute distress. HEENT: Jugular venous pressure is normal. CHEST: Lungs clear to auscultation anteriorly. CARDIAC: Regular rate and rhythm without S3, S4, murmur. ABDOMEN: Soft, nontender, no hepatosplenomegaly. Bowel sounds present. EXTREMITIES: No clubbing, cyanosis, or edema. Laboratory Laboratory Tests Test 04/13/16 04/14/16 18:00 03:04 Sodium Level 146 MEQ/L 149 MEQ/L Potassium Level 4.1 MEQ/L 3.3 MEQ/L Chloride Level 106 MEQ/L 108 MEQ/L Carbon Dioxide Level 29.4 MEQ/L 31.9 MEQ/L Anion Gap 11 MEQ/L 9 MEQ/L Blood Urea Nitrogen 61 MG/DL 63 MG/DL Creatinine 2.11 MG/DL 1.86 MG/DL Estimat Glomerular Filtration 30 ML/MIN 34 ML/MIN Rate Random Glucose 307 MG/DL 44 MG/DL Calcium Level 8.3 MG/DL 8.4 MG/DL White Blood Count 11.9 TH/MM3 Red Blood Count 3.36 MIL/MM3 Hemoglobin 10.2 GM/DL Hematocrit 30.6 % Mean Corpuscular Volume 90.9 FL Mean Corpuscular Hemoglobin 30.4 PG Mean Corpuscular Hemoglobin 33.4 % Concent Red Cell Distribution Width 14.9 % Platelet Count 234 TH/MM3 Mean Platelet Volume 10.0 FL Magnesium Level 2.2 MG/DL Assessment and Plan Problem List: (1) STEMI (ST elevation myocardial infarction) Assessment and Plan: Status post anterior STEMI, PTCA of prox and mid LAD, unsuccessful stenting 04/06/16. Cardiac status stable. Hemodynamically stable. Increasing renal indices, agree due to intravascular volume depletion from diuretic. EF by echo close to 45%. BP's overall too low for beta ry , NUBIA-I. REC continue aspirin, Plavix cont statin agree with stopping furosemide OK for discharge from a cardiac standpoint, follow up with me about 3 weeks post discharge Code Status full code Problem Qualifiers (1) STEMI (ST elevation myocardial infarction): Qualified Code: I21.02 - ST elevation myocardial infarction involving left anterior descending (LAD) coronary artery Naun Ferrari MD Apr 14, 2016 14:42
[2016-04-14] MEDS: ENOXAPARIN SODIUM 30 MG/0.3 ML SYRINGE SQ SCH (19:50)
[2016-04-14] MEDS: ATORVASTATIN 40 MG TAB PO SCH (20:46)
[2016-04-15] VITALS (15 sets, daily range): BP systolic 95–106; BP diastolic 47–60; PULSE 108–135; RESP 20–32; TEMP 98–98.7; O2SAT 90–97
[2016-04-15] MEDS: RESP: ALBUTEROL 2.5 MG/IPRATROPIUM 0.5 MG NEB (SCH) NEB ×4 (03:27→21:08)
[2016-04-15 05:53] LABS: BICARBONATE 29.3 MEQ/L (21.0-32.0); POTASSIUM 3.9 MEQ/L (3.5-5.1)
[2016-04-15] MEDS: INSULIN ASPART SUPPLEMENTAL SCALE SQ SCH ×3 (06:42→16:00)
[2016-04-15] MEDS ORDERED: SODIUM CHLOR 0.9% 1000 ML INJ 1,000 ML IV SCH ×2 (08:00→19:00)
--- NOTE | 2016-04-15 08:47 | HHI.PR ---
Subjective Remarks pt calm and cooperative says he is thirsty. Objective Vitals tongue dry. some secretion in post oropharynx pleasant and cooperative heart reg lung cta abd distention over the suprapubic area ext no edema areas of ecchymosis ext's Vital Signs Date Time Temp Pulse Resp B/P Pulse Ox O2 Delivery O2 Flow Rate FiO2 04/15/16 08:00 98.3 114 20 106/54 97 04/15/16 08:00 133 04/15/16 07:35 98.3 114 20 106/54 97 04/15/16 06:00 109 04/15/16 04:00 112 04/15/16 04:00 98.7 109 23 95/49 92 04/15/16 02:00 108 04/15/16 00:00 98.5 115 32 100/54 92 04/15/16 00:00 115 04/14/16 22:00 127 04/14/16 21:42 92 Nasal Cannula 3.00 04/14/16 20:00 98.7 133 46 95/54 92 04/14/16 20:00 133 04/14/16 16:00 97.0 112 24 109/55 92 04/14/16 12:00 97.6 109 24 109/60 95 04/14/16 04/14/16 04/15/16 15:00 23:00 07:00 Intake Total 360 ml 363 ml 476 ml Output Total 250 ml 50 ml 238 ml Balance 110 ml 313 ml 238 ml Intake Oral 360 ml 120 ml 240 ml IV Total 243 ml 236 ml Output Urine Total 250 ml 50 ml 238 ml # Bowel Movements 1 0 0 Result Diagram: 04/14/16 0304 04/15/16 0323 Imaging Last Impressions Chest X-Ray 04/10/16 0600 Signed Impressions: Service Date/Time: Sunday, April 10, 2016 05:19 - CONCLUSION: Slight worsening pulmonary edema and left lung base consolidation not clearly seen previously. Pleural effusions have not changed. Cyrus Mcdonough MD Chest Ultrasound 04/09/16 0000 Signed Impressions: Service Date/Time: March 18:47 - CONCLUSION: Small right pleural effusion. No thoracentesis lucio made. Fabien Simental MD Head CT 04/08/16 0330 Signed Impressions: Service Date/Time: Friday, April 08, 2016 04:46 - CONCLUSION: No evidence of acute intracranial findings Fabien Randall MD Chest CT 04/07/16 0000 Signed Impressions: Service Date/Time: Thursday, April 07, 2016 15:15 - CONCLUSION: 1. Bilateral lower lobe atelectasis versus pneumonia. 2. Moderate bilateral effusions Lui Guerra MD A/P Problem List: (1) STEMI (ST elevation myocardial infarction) Status: Acute Plan: - Pt admitted with respiratory distress, fever of [address] elevations in multiple leads. - Pt was admitted to ICU/Intensivists and Cardiology. - Pt underwent LHC which noted moderate to severe three-vessel coronary artery disease, severely reduced left ventricular systolic function with estimated EF of 20-25% due to akinesis of the apex, mid to distal inferior wall, and mid to distal anterior wall, s/p difficult angioplasty of the proximal and mid LAD, unsuccessful stenting of the mid-LAD. - 2D echo (04/06) - Mild LVH - EF 45% - Akinesis of the mid-distal anteroseptal. anterior, and apical myocardium - Mild to moderate tricuspid regurg - Moderately to severely increased PA peak pressure of 62mmHg Chest CT (04/07) --> Bilateral lower lobe atelectasis versus pneumonia. Moderate bilateral effusions - US Chest (04/09) with small right pleural effusion and ~470cc left pleural effusion, marked for thoracentesis. - CXR (04/10) --> Slight worsening pulmonary edema and left lung consolidation, pleural effusions have not changed. - Speech therapy following the pt and evaluation on 04/09 without any overt s/s of aspiration on mechanical soft diet with chopped meats/gravy and thin liquids. - Blood culture (04/05) with staph coagulase negative in 03/25 bottles suggesting contamination. -s/p stemi with improved LVF to 40-45%. angioplasty to lad as above -hardik related to diuretics and dehydration. also his bladder is distended concerning for urine retention --daughter says no hx of copd. 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 -chronic aspiration. -general weakness -long talk with physician daughter. -modified diet -PT/OOB -cont nebs -push po fluids.gentle NS and monitor for fluid overload. replace ernst for retention and trial flomax. ...will discuss ?hx of bph with family.. -asa/plavix -dvt prophylaxis -cont novolog with meals and ssi. -full code for now. ADDENDUM: AFTER ERNST PLACED NURSING STATED SHE IMMEDIATELY GOT OUT 1700CC OF URINE RETAINED......OVER COURSE OF DAY URINE OUTPUT DROPPING AGAIN WITH LOWER BP;. SHE REPORTS POOR PO INTAKE. I WILL HAVE TO START SOME IVF. WILL MONITOR FOR CHF. CONSULT RENAL. (2) HARDIK (acute kidney injury) Status: Acute Plan: see above (3) Acute on chronic respiratory failure with hypoxemia Status: Acute Plan: see above (4) Aspiration pneumonia Status: Acute Plan: see above (5) Diabetes mellitus type 2, uncontrolled Status: Acute Plan: brittle dm control steroid hyperglycemia see above Problem Qualifiers (1) STEMI (ST elevation myocardial infarction): Qualified Code: I21.02 - ST elevation myocardial infarction involving left anterior descending (LAD) coronary artery (2) Diabetes mellitus type 2, uncontrolled: Qualified Code: E11.8 - Uncontrolled type 2 diabetes mellitus with complication , without long-term current use of insulin Maninder Palmer MD Apr 15, 2016 08:47
[2016-04-15] MEDS: SODIUM CHLORIDE 0.9% FLUSH 5 ML FLUSH IVF SCH ×2 (09:00→20:12)
[2016-04-15] MEDS ORDERED: predniSONE 10 MG TAB PO SCH (09:00)
[2016-04-15] MEDS ORDERED: TAMSULOSIN HCL 0.4 MG CAP PO SCH (09:00)
[2016-04-15] MEDS: DOCUSATE SODIUM 100 MG/10 ML UDC PO SCH (09:06)
[2016-04-15] MEDS: INSULIN ASPART 1,000 UNITS/10 ML VIAL SQ SCH ×3 (09:06→17:00)
[2016-04-15] MEDS: CLOPIDOGREL 75 MG TAB PO SCH (09:07)
[2016-04-15] MEDS: FAMOTIDINE 20 MG TAB PO SCH (09:07)
[2016-04-15] MEDS: ASPIRIN 325 MG TAB PO SCH (09:07)
--- NOTE | 2016-04-15 12:51 | HHI.PR ---
Subjective Remarks Awake and , and on O2 at 3 L. Taking some po diet. O2 sat 93 Remains confused.Weak still. BUN is 68 Objective Vital Signs Date Time Temp Pulse Resp B/P Pulse Ox O2 Delivery O2 Flow Rate FiO2 04/15/16 12:00 98.7 120 23 103/60 92 04/15/16 12:00 133 04/15/16 10:18 97 Nasal Cannula 3.00 04/15/16 10:00 133 04/15/16 10:00 133 04/15/16 08:00 98.3 114 20 106/54 97 04/15/16 08:00 133 04/15/16 07:35 98.3 114 20 106/54 97 04/15/16 06:00 109 04/15/16 04:00 112 04/15/16 04:00 98.7 109 23 95/49 92 04/15/16 02:00 108 04/15/16 00:00 98.5 115 32 100/54 92 04/15/16 00:00 115 04/14/16 22:00 127 04/14/16 21:42 92 Nasal Cannula 3.00 04/14/16 20:00 98.7 133 46 95/54 92 04/14/16 20:00 133 04/14/16 16:00 97.0 112 24 109/55 92 I/O 04/14/16 04/14/16 04/14/16 04/15/16 04/15/16 04/15/16 07:00 15:00 23:00 07:00 15:00 23:00 Intake Total 153 ml 360 ml 363 ml 476 ml Output Total 50 ml 250 ml 50 ml 238 ml Balance 103 ml 110 ml 313 ml 238 ml Intake Oral 360 ml 120 ml 240 ml IV Total 153 ml 243 ml 236 ml Output Urine Total 50 ml 250 ml 50 ml 238 ml Bladder Scan Volume Amount 999 ml # Bowel Movements 0 1 0 0 Result Diagram: 04/14/16 0304 04/15/16 0323 Objective Remarks GENERAL: This is an emaciated looking elderly man who is in bed, pale and not dyspneic at rest. HEENT: Head normocephalic. Pupils reactive. Tongue is dry and throat is clear. Ears, no inflammation. NECK: Supple. No bruits, no thyroid enlargement. CHEST: Equal movements with , prolonged expirations,Occ crackles at the lung bases. HEART: The heart sounds are irregular S1 and S2. No murmur. ABDOMEN: Soft, protuberant. No masses, no organomegaly or tenderness. Bowel sounds are active EXTREMITIES: Muscle wasting and diminished pulses. Reflexes 1+. The patient does move his legs and is weak.no edema noted SKIN: Revealed no definite lesions. Assessment and Plan Assessment and Plan IMPRESSION 1. ST elevation myocardial infarction 2. Chronic respiratory failure. 3. Basilar pneumonia and hypoxemia. 4. Chronic obstructive pulmonary disease 5. Diabetes mellitus type 2. 6. Deconditioning. 7. HARDIK Plan : 1. Pureed foods. Increase diet. 2. Suction throat prn 3. Nebs tid , duoneb. 4. O2 at 2L. 5. PT evaluation. 6. Family requests DNR. 7. Prednisone 20 mg daily. [facility]. [facility]. Gabriel Campos MD Apr 15, 2016 12:51
[2016-04-15] MEDS: ENOXAPARIN SODIUM 30 MG/0.3 ML SYRINGE SQ SCH (14:00)
[2016-04-15 18:46] LABS: BICARBONATE 20.7 MEQ/L (21.0-32.0); POTASSIUM 4.9 MEQ/L (3.5-5.1)
--- NOTE | 2016-04-15 20:14 | HHI.PR ---
Addendum to Inpatient Note Addendum Reason: Additional Documentation Additional Information Received a call from pt's nurse re: persistent tachycardia. She has a call out to his heel buffer as well. Pt is s/p MN and is deteriorating. Nurse has been discussing case with family and they have elected to make pt DNR. Given his deteriorating status, significant comorbidities and advanced age, this appears to be appropriate decision. I have updated code status. I also gave one dose of digoxin IV to hopefully help with heart rate. His BP would not support alternative measures at this point. Palliative care has been following pt. Camron Milner PhD Apr 15, 2016 20:14
[2016-04-15] MEDS ORDERED: DIGOXIN 0.5 MG/2 ML VIAL IV PUSH ONE (20:15)
[2016-04-15] MEDS ORDERED: INSULIN ASPART SUPPLEMENTAL SCALE SQ SCH ×2 (21:00)
[2016-04-15] MEDS ORDERED: MORPHINE SULFATE 4 MG/ML INJ IV PRN (21:45)
--- NOTE | 2016-04-16 18:40 | EKG ---
Date Performed: 04/15/2016 Time Performed: 19:19:58 PTAGE: 89 years EKG: Sinus tachycardia with premature atrial contractions verses Possible multifocal atrial tach ycardia. Atrial fibrillation can not be entirely excluded by this EKG Anterior infarct - age undeterm ined Possible inferior infarct - age undetermined Low QRS voltages in limb leads Abnormal ECG PREVIOUS TRACING : 04/10/2016 14.19 DOCTOR: Dutch Haskins Interpretating Date/Time 04/16/2016 18:39:41
--- NOTE | 2016-05-06 10:17 | HHI.DS ---
Discharge Summary Admission Date Apr 05, 2016 at 19:42 Discharge Date: Apr 15, [address] elevation MS/sepsis (1) STEMI (ST elevation myocardial infarction) Diagnosis: Principal (2) HARDIK (acute kidney injury) Diagnosis: Principal (3) Acute on chronic respiratory failure with hypoxemia Diagnosis: Principal (4) Aspiration pneumonia Diagnosis: Principal (5) Diabetes mellitus type 2, uncontrolled Diagnosis: Secondary Hospital Course - Pt admitted with respiratory distress, fever of [address] elevations in multiple leads. - Pt was admitted to ICU/Intensivists and Cardiology. - Pt underwent LHC which noted moderate to severe three-vessel coronary artery disease, severely reduced left ventricular systolic function with estimated EF of 20-25% due to akinesis of the apex, mid to distal inferior wall, and mid to distal anterior wall, s/p difficult angioplasty of the proximal and mid LAD, unsuccessful stenting of the mid-LAD. - 2D echo (04/06) - Mild LVH - EF 45% - Akinesis of the mid-distal anteroseptal. anterior, and apical myocardium - Mild to moderate tricuspid regurg - Moderately to severely increased PA peak pressure of 62mmHg Chest CT (04/07) --> Bilateral lower lobe atelectasis versus pneumonia. Moderate bilateral effusions - US Chest (04/09) with small right pleural effusion and ~470cc left pleural effusion, marked for thoracentesis. - CXR (04/10) --> Slight worsening pulmonary edema and left lung consolidation, pleural effusions have not changed. - Speech therapy following the pt and evaluation on 04/09 without any overt s/s of aspiration on mechanical soft diet with chopped meats/gravy and thin liquids. - Blood culture (04/05) with staph coagulase negative in 03/25 bottles suggesting contamination. -s/p stemi with improved LVF to 40-45%. angioplasty to lad as above -hardik related to diuretics and dehydration. also his bladder is distended concerning for urine retention --daughter says no hx of copd. 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 -chronic aspiration. -long talk with physician daughter. -push po fluids.gentle NS and monitor for fluid overload. replace vanegas for retention and trial flomax. .-asa/plavix were initiated. AFTER VANEGAS PLACED NURSING STATED SHE IMMEDIATELY GOT OUT 1700CC OF URINE RETAINED......OVER COURSE OF DAY URINE OUTPUT DROPPING AGAIN WITH LOWER BP;. SHE REPORTS POOR PO INTAKE. -He continued to decline clinically and family made him dnr. He . Pt Condition on Discharge: Deteriorating Discharge Instructions Speech Therapy-Diet Recommends: Mechanical Soft, Chopped Meat w/aMninder Lewis MD May 06, 2016 10:17
== END 2016-04-15 22:28 | disposition expired | DRG 853 ==
LOC: NEPC 19:18 → NEDA 19:42 → HIMW 22:55
PROVIDERS: ADMIT Internal Medicine Cardiovascular Disease; ATTEND Internal Medicine Cardiovascular Disease
PROC: 02703ZZ Dilation of Coronary Artery, One Artery, Percutaneous Approach (ICD-10-PCS; principal; 2016-04-05)
PROC: 4A023N7 Measurement of Cardiac Sampling and Pressure, Left Heart, Percutaneous Approach (ICD-10-PCS; 2016-04-05)
PROC: B2111ZZ Fluoroscopy of Multiple Coronary Arteries using Low Osmolar Contrast (ICD-10-PCS; 2016-04-05)
PROC: B2151ZZ Fluoroscopy of Left Heart using Low Osmolar Contrast (ICD-10-PCS; 2016-04-05)
PROC: 05HM33Z Insertion of Infusion Device into Right Internal Jugular Vein, Percutaneous Approach (ICD-10-PCS; 2016-04-06)
PROC: 30233N1 Transfusion of Nonautologous Red Blood Cells into Peripheral Vein, Percutaneous Approach (ICD-10-PCS; 2016-04-07)
PROC: 0T9B70Z Drainage of Bladder with Drainage Device, Via Natural or Artificial Opening (ICD-10-PCS; 2016-04-15)
DX: A41.9 Sepsis, unspecified organism (principal); I21.02 ST elevation (STEMI) myocardial infarction involving left anterior descending coronary artery; J96.21 Acute and chronic respiratory failure with hypoxia; J69.0 Pneumonitis due to inhalation of food and vomit; G93.40 Encephalopathy, unspecified; N17.9 Acute kidney failure, unspecified; J90 Pleural effusion, not elsewhere classified; E87.0 Hyperosmolality and hypernatremia; R64 Cachexia; E87.3 Alkalosis; E11.65 Type 2 diabetes mellitus with hyperglycemia; E78.5 Hyperlipidemia, unspecified; E78.00 Pure hypercholesterolemia, unspecified; K21.9 Gastro-esophageal reflux disease without esophagitis; I25.10 Atherosclerotic heart disease of native coronary artery without angina pectoris; I10 Essential (primary) hypertension; J44.9 Chronic obstructive pulmonary disease, unspecified; R13.13 Dysphagia, pharyngeal phase; Z51.5 Encounter for palliative care; I27.2 Other secondary pulmonary hypertension; D64.9 Anemia, unspecified; E11.649 Type 2 diabetes mellitus with hypoglycemia without coma; Z66 Do not resuscitate; R33.9 Retention of urine, unspecified; E83.42 Hypomagnesemia; E86.0 Dehydration; I07.1 Rheumatic tricuspid insufficiency; I48.91 Unspecified atrial fibrillation; Z78.1 Physical restraint status; Z79.82 Long term (current) use of aspirin; Z87.01 Personal history of pneumonia (recurrent); T50.2X5A Adverse effect of carbonic-anhydrase inhibitors, benzothiadiazides and other diuretics, initial encounter; W06.XXXA Fall from bed, initial encounter; Y92.230 Patient room in hospital as the place of occurrence of the external cause
CPT/HCPCS: 36430; 36556; 36600; 70450; 71010; 71250; 76604; 76937; 80048; 80053; 80061; 80076; 81001; 82010; 82140; 82310; 82435; 82533; 82550; 82552; 82565; 82805; 82947; 82948; 83605; 83735; 83880; 84100; 84132; 84155; 84295; 84443; 84484; 84520; 85002; 85007; 85025; 85027; 85610; 85730; 86850; 86900; 86901; 86920; 87040; 87077; 87086; 87186; 87205; 87641; 92941; 93005; 93306; 93458; 94003; 94640; 94664; C1725; C1769; C1887; C1893; J1160; J1265; J1644; J1650; J1815; J1817; J1940; J1956; J2060; J2250; J2270; J2920; J3010; J3246; J3475; J3480; J7030; J7040; J7512; J7613; P9016